=== PATIENT | female | born 1975 | race Caucasian/White ===

== ENCOUNTER 2017-07-24 16:11 | Emergency (ER) | payer MEDICARE, MEDICAID ==
[2017-07-24 16:21] VITALS: BP 127/77
--- NOTE | 2017-07-24 16:34 | ED Physician Documentation ---
History of Present Illness - Stated complaint Stated Complaint: ANXIETY/CANT SLEEP - Chief complaint Chief Complaint: MHE - History obtained from History obtained from: Patient - History of Present Illness Timing: Other (She needs a refill of her Zyprexa, has not been able to see a psychiatrist yet. Has an appointment, although it may be with a psychologist so that he may not be helpful. Either way she feels like she is at her baseline but is worried because she is about to run out of her medication. There is no suicidal or homicidal ideation. 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 : None HEENT: None Psych: Depression, Anxiety, Other Musculoskeletal: None Derm: None - Past Surgical History Past Surgical History: No - Present Medications Home Medications: Ambulatory Orders Medication Instructions Recorded Confirmed OLANZapine [Zyprexa] 10 mg PO DAILY #30 tablet 06/28/17 07/24/17 OLANZapine [Zyprexa] 10 mg PO DAILY #30 tablet 07/24/17 - Allergies Allergies/Adverse Reactions: Allergies Allergy/AdvReac Type Severity Reaction Status Date / Time No Known Drug Allergies Allergy Verified 06/28/17 16:54 - Social History Does the pt smoke?: Yes Smoking Status: Current every day smoker Does the pt drink ETOH?: Yes Does the pt have substance abuse?: No - Immunizations Immunizations are current?: Yes - POLST Patient has POLST: No PD ED PE NORMAL - Vitals Vital signs reviewed: Yes - General General: Alert and oriented X 3, No acute distress - Derm Derm: Normal color, Warm and dry - Neuro Neuro: Alert and oriented X 3, Normal speech - Psych Psych: Normal mood, Normal affect Results - Vitals Vitals: Vital Signs - 24 hr 07/24/17 16:17 Temperature 36.2 C L Heart Rate 91 Respiratory 15 Rate Blood Pressure 127/77 O2 Saturation 98 Oxygen O2 Source Room air Departure - Departure Disposition: 01 Home, Self Care Clinical Impression: Schizo-affective psychosis Qualifiers: Schizoaffective disorder type: unspecified Qualified Code(s): F25.9 - Schizoaffective disorder, unspecified Condition: Good Record reviewed to determine appropriate education?: Yes Follow-Up: [facility] [Provider Group] Prescriptions: OLANZapine [Zyprexa] 10 mg PO DAILY #30 tablet Comments: Call your foster care social worker on Wednesday to see if they have a prescriber at [place] where he will be going for further psychiatric care. Try to find a physician to follow-up with. Return if worse.
== END 2017-07-24 16:34 | disposition home or self-care (01) ==
LOC: ED 16:11
DX: Z76.0 Encounter for issue of repeat prescription (principal); F20.9 Schizophrenia, unspecified; F17.200 Nicotine dependence, unspecified, uncomplicated
CPT/HCPCS: 99281; 99283

== ENCOUNTER 2018-04-21 08:00 | Outpatient (CLI) | payer MEDICARE, MEDICAID ==
[2018-04-21 18:50] LABS: BASOPHILS # (AUTO) 0.1 10^3/uL (0.0-0.1); BASOPHILS % (AUTO) 0.9 %; EOSINOPHILS # (AUTO) 0.3 10^3/uL (0.0-0.7); EOSINOPHILS % (AUTO) 3.2 %; HGB - HEMOGLOBIN 13.2 g/dL (12.0-16.0); LYMPHOCYTES # (AUTO) 3.7 10^3/uL (1.5-3.5); LYMPHOCYTES % (AUTO) 35.9 %; MEAN CORPUSCULAR HEMOGLOBIN 29.1 pg (27.0-31.0); MEAN CORPUSCULAR HGB CONC 33.4 g/dL (32.0-36.0); MEAN CORPUSCULAR VOLUME 87.2 fL (81.0-99.0); MEAN PLATELET VOLUME 8.4 fL (7.9-10.8); MONOCYTES # (AUTO) 0.6 10^3/uL (0.0-1.0); MONOCYTES % (AUTO) 5.4 %; NEUTROPHILS # (AUTO) 5.7 10^3/uL (1.5-6.6); NEUTROPHILS % (AUTO) 54.6 %; PLT - PLATELET COUNT 313 10^3/uL (130-450); RED BLOOD COUNT 4.52 10^6/uL (4.20-5.40); RED CELL DISTRIBUTION WIDTH 12.7 % (12.0-15.0); WHITE BLOOD COUNT 10.4 x10^3/uL (4.8-10.8)
[2018-04-21 19:13] LABS: ALBUMIN 3.3 g/dL (3.2-5.5); ALBUMIN/GLOBULIN RATIO 0.9 (1.0-2.2); ALKALINE PHOSPHATASE 79 IU/L (42-121); ALT ALANINE AMINOTRANSFERASE 49 IU/L (10-60); AST ASPARTATE AMINOTRANSFERASE 45 IU/L (10-42); BILIRUBIN,TOTAL 0.7 mg/dL (0.2-1.0); BUN - BLOOD UREA NITROGEN 9 mg/dL (6-20); CALCIUM 8.7 mg/dL (8.5-10.3); CARBON DIOXIDE - CO2 26 mmol/L (21-32); CHLORIDE 101 mmol/L (101-111); CHOL/HDL RATIO 6.2 (<4.4); CHOLESTEROL 237 mg/dL; CREATININE 0.3 mg/dL (0.4-1.0); GFR - MDRD 243 (>89); GLUCOSE 272 mg/dL (70-100); HDL CHOLESTEROL 38 mg/dL; SODIUM 133 mmol/L (135-145); TOTAL PROTEIN 6.9 g/dL (6.7-8.2)
[2018-04-21 19:41] LABS: HB2 TOTAL 13.9 g/dL; HEMOGLOBIN A1C 1.52 g/dL; HEMOGLOBIN A1C % 12.2 % (4.6-6.2)
[2018-04-21 19:42] LABS: LDL CHOLESTEROL,DIRECT 118 mg/dL; LDLD/HDL RATIO 3.1 (<4.4)
== END 2018-04-21 08:01 | disposition home or self-care (01) ==
LOC: LAB.N 08:00
PROVIDERS: ATTEND Nurse Practitioner Gerontology
DX: Z79.899 Other long term (current) drug therapy (principal); E78.1 Pure hyperglyceridemia; E11.9 Type 2 diabetes mellitus without complications
CPT/HCPCS: 80053; 80061; 83036; 83721; 84443; 85025

== ENCOUNTER 2019-07-24 14:15 | Outpatient (CLI) | payer MEDICARE, MEDICAID ==
[2019-07-24 19:13] LABS: BASOPHILS # (AUTO) 0.1 10^3/uL (0.0-0.1); BASOPHILS % (AUTO) 1.1 %; EOSINOPHILS # (AUTO) 0.4 10^3/uL (0.0-0.7); EOSINOPHILS % (AUTO) 3.7 %; HGB - HEMOGLOBIN 13.4 g/dL (12.0-16.0); LYMPHOCYTES # (AUTO) 3.4 10^3/uL (1.5-3.5); LYMPHOCYTES % (AUTO) 28.6 %; MEAN CORPUSCULAR HEMOGLOBIN 28.8 pg (27.0-31.0); MEAN CORPUSCULAR HGB CONC 32.6 g/dL (32.0-36.0); MEAN CORPUSCULAR VOLUME 88.4 fL (81.0-99.0); MEAN PLATELET VOLUME 10.1 fL (7.9-10.8); MONOCYTES # (AUTO) 0.7 10^3/uL (0.0-1.0); MONOCYTES % (AUTO) 5.8 %; NEUTROPHILS # (AUTO) 7.1 10^3/uL (1.5-6.6); NEUTROPHILS % (AUTO) 60.3 %; PLT - PLATELET COUNT 372 10^3/uL (130-450); RED BLOOD COUNT 4.65 10^6/uL (4.20-5.40); RED CELL DISTRIBUTION WIDTH 12.4 % (12.0-15.0); WHITE BLOOD COUNT 11.8 x10^3/uL (4.8-10.8)
[2019-07-24 19:35] LABS: ALBUMIN 3.6 g/dL (3.2-5.5); ALBUMIN/GLOBULIN RATIO 0.9 (1.0-2.2); BILIRUBIN,TOTAL 0.4 mg/dL (0.2-1.0); CALCIUM 9.8 mg/dL (8.5-10.3); CREATININE 0.3 mg/dL (0.4-1.0); TOTAL PROTEIN 7.7 g/dL (6.7-8.2)
[2019-07-24 20:41] LABS: HB2 TOTAL 13.5 g/dL; HEMOGLOBIN A1C 1.37 g/dL; HEMOGLOBIN A1C % 11.4 % (4.6-6.2)
== END 2019-07-24 23:59 | disposition home or self-care (01) ==
LOC: LAB.N 14:15
PROVIDERS: ATTEND Nurse Practitioner Psychiatric/Mental Health
DX: F31.2 Bipolar disorder, current episode manic severe with psychotic features (principal); E11.9 Type 2 diabetes mellitus without complications
CPT/HCPCS: 36415; 80053; 82306; 82607; 83036; 84443; 85025

== ENCOUNTER 2019-10-20 14:19 | Emergency (ER) | payer MEDICARE, MEDICAID ==
[2019-10-20 14:26] VITALS: BP 115/66
--- NOTE | 2019-10-20 15:58 | ED Physician Documentation ---
PD HPI MHE - Stated complaint Stated Complaint: MED REFILL - Chief complaint Chief Complaint: General - History obtained from History obtained from: Patient - History of Present Illness Primary symptom: Depression (mild). No: Suicidal ideation Timing - onset: How many days ago (she says she does well with current Zyprexa Rx, but is out of meds this the third day, and appt until not ded) Contributing factors: Out of meds Recently seen: Not recently seen (has appt next week) Review of Systems Constitutional: denies: Fever, Chills Nose: denies: Rhinorrhea / runny nose, Congestion Throat: denies: Sore throat Cardiac: denies: Chest pain / pressure Respiratory: denies: Cough GI: denies: Abdominal Pain Neurologic: denies: Confused, Altered mental status, Headache, Head injury PD PAST MEDICAL HISTORY - Past Medical History Cardiovascular: None Respiratory: None Endocrine/Autoimmune: None GI: None 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 : None HEENT: None Psych: Depression, Anxiety, Other Musculoskeletal: None Derm: None - Past Surgical History Past Surgical History: No - Present Medications Home Medications: Ambulatory Orders Medication Instructions Recorded Confirmed OLANZapine [Zyprexa] 10 mg PO DAILY #30 tablet 06/28/17 07/24/17 Glipizide 5 mg PO 10/20/19 OLANZapine [Olanzapine] 20 mg PO DAILY #15 tablet 10/20/19 - Allergies Allergies/Adverse Reactions: Allergies Allergy/AdvReac Type Severity Reaction Status Date / Time No Known Drug Allergies Allergy Verified 10/20/19 14:25 - Social History Does the pt smoke?: Yes Smoking Status: Current every day smoker Does the pt drink ETOH?: Yes Does the pt have substance abuse?: No - Immunizations Immunizations are current?: Yes - POLST Patient has POLST: No PD ED PE NORMAL - Vitals Vital signs reviewed: Yes - General General: Alert and oriented X 3, No acute distress, Well developed/nourished - HEENT HEENT: Pharynx benign - Neck Neck: Supple, no meningeal sign, No bony TTP, No adenopathy - Cardiac Cardiac: RRR, No murmur - Respiratory Respiratory: Clear bilaterally - Derm Derm: Normal color, Warm and dry - Neuro Neuro: Alert and oriented X 3, No motor deficit, Normal speech Results - Vitals Vitals: Vital Signs - 24 hr 10/20/19 14:21 Temperature 36.7 C Heart Rate 92 Respiratory 18 Rate Blood Pressure 115/66 O2 Saturation 95 Oxygen O2 Source Room air PD MEDICAL DECISION MAKING - ED course Complexity details: considered differential (doing okay and just wanting Rx until she gets in to PCP to get regular Rx) Departure - Departure Disposition: 01 Home, Self Care Clinical Impression: No mechanism for timely refill of medication Condition: Stable Record reviewed to determine appropriate education?: Yes Follow-Up: [facility] [Provider Group] Prescriptions: OLANZapine [Olanzapine] 20 mg PO DAILY #15 tablet Comments: Continue usual medications including the olanzapine 20 mg nightly. Stay well- hydrated. Follow-up with [facility] regarding further refills and ongoing medications. Discharge Date/Time: 10/20/19 16:05
== END 2019-10-20 16:05 | disposition home or self-care (01) ==
LOC: ED 14:19
DX: F32.9 Major depressive disorder, single episode, unspecified (principal); T43.596A Underdosing of other antipsychotics and neuroleptics, initial encounter; Z91.138 Patient's unintentional underdosing of medication regimen for other reason; Z76.0 Encounter for issue of repeat prescription; F17.200 Nicotine dependence, unspecified, uncomplicated
CPT/HCPCS: 99281

== ENCOUNTER 2019-11-03 15:36 | Emergency (ER) | payer MEDICARE, MEDICAID ==
[2019-11-03 15:58] VITALS: BP 118/82
--- NOTE | 2019-11-03 16:16 | ED Physician Documentation ---
PD HPI MHE - Stated complaint Stated Complaint: MED REFILL - Chief complaint Chief Complaint: General - History obtained from History obtained from: Patient - History of Present Illness Primary symptom: Out of meds. No: Suicidal ideation, Suicide attempt Timing - onset: How many days ago (had run out of her Olanzapine and missed appt due to family issues. Has psyc appt later this months, in about 2 weeks.) Contributing factors: Out of meds. No: Substance abuse - ETOH, Substance abuse - drugs Review of Systems Constitutional: denies: Fever, Chills, Myalgias Musculoskeletal: denies: Neck pain, Back pain Neurologic: denies: Generalized weakness, Focal weakness, Numbness Psychiatric: reports: Insomnia. 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 : None HEENT: None Psych: Depression, Anxiety, Other Musculoskeletal: None Derm: None - Past Surgical History Past Surgical History: No - Present Medications Home Medications: Ambulatory Orders Medication Instructions Recorded Confirmed OLANZapine [Zyprexa] 10 mg PO DAILY #30 tablet 06/28/17 07/24/17 Glipizide 5 mg PO 10/20/19 OLANZapine [Olanzapine] 20 mg PO DAILY #15 tablet 10/20/19 OLANZapine [Olanzapine] 20 mg PO DAILY #20 tablet 11/03/19 - Allergies Allergies/Adverse Reactions: Allergies Allergy/AdvReac Type Severity Reaction Status Date / Time No Known Drug Allergies Allergy Verified 11/03/19 15:58 - Social History Does the pt smoke?: Yes Smoking Status: Current every day smoker Does the pt drink ETOH?: Yes Does the pt have substance abuse?: No - Immunizations Immunizations are current?: Yes - POLST Patient has POLST: No PD ED PE NORMAL - Vitals Vital signs reviewed: Yes - General General: Alert and oriented X 3, No acute distress, Well developed/nourished - Cardiac Cardiac: RRR, No murmur - Respiratory Respiratory: Clear bilaterally - Abdomen Abdomen: Normal bowel sounds, Soft - Neuro Neuro: Alert and oriented X 3 Eye Opening: Spontaneous Motor: Obeys Commands Results - Vitals Vitals: Vital Signs - 24 hr 11/03/19 15:54 Temperature 36.8 C Heart Rate 91 Respiratory 17 Rate Blood Pressure 118/82 H O2 Saturation 100 Oxygen O2 Source Room air Departure - Departure Disposition: Home, Self Care Clinical Impression: No mechanism for timely refill of medication Schizoaffective disorder Qualifiers: Schizoaffective disorder type: unspecified Qualified Code(s): F25.9 - Schizoaffective disorder, unspecified Condition: Stable Record reviewed to determine appropriate education?: Yes Prescriptions: OLANZapine [Olanzapine] 20 mg PO DAILY #20 tablet Comments: Continue usual medications. Stay well-hydrated. Follow-up with your provider later this month as planned. Discharge Date/Time: 11/03/19 16:43
== END 2019-11-03 16:43 | disposition home or self-care (01) ==
LOC: ED 15:36
DX: Z76.0 Encounter for issue of repeat prescription (principal); F25.9 Schizoaffective disorder, unspecified; F17.200 Nicotine dependence, unspecified, uncomplicated
CPT/HCPCS: 99282; 99283

== ENCOUNTER 2019-11-17 08:00 | Outpatient (CLI) | payer MEDICARE, MEDICAID ==
[2019-11-17 18:28] LABS: CALCIUM 9.6 mg/dL (8.5-10.3); CREATININE 0.6 mg/dL (0.4-1.0); HB2 TOTAL 14.3 g/dL; HEMOGLOBIN A1C 1.25 g/dL; HEMOGLOBIN A1C % 10.1 % (4.6-6.2)
== END 2019-11-17 23:59 | disposition home or self-care (01) ==
LOC: LAB.N 08:00
PROVIDERS: ATTEND Nurse Practitioner Gerontology
DX: E11.9 Type 2 diabetes mellitus without complications (principal)
CPT/HCPCS: 36415; 80048; 83036

== ENCOUNTER 2020-10-16 08:00 | Outpatient (CLI) | payer MEDICARE, MEDICAID ==
[2020-10-16 18:15] LABS: BASOPHILS # (AUTO) 0.1 10^3/uL (0.0-0.1); EOSINOPHILS # (AUTO) 0.6 10^3/uL (0.0-0.7); EOSINOPHILS % (AUTO) 6.5 %; HGB - HEMOGLOBIN 13.4 g/dL (12.0-16.0); LYMPHOCYTES # (AUTO) 3.1 10^3/uL (1.5-3.5); LYMPHOCYTES % (AUTO) 34.3 %; MEAN CORPUSCULAR HEMOGLOBIN 29.2 pg (27.0-31.0); MEAN CORPUSCULAR HGB CONC 32.4 g/dL (32.0-36.0); MEAN PLATELET VOLUME 10.1 fL (7.9-10.8); MONOCYTES # (AUTO) 0.5 10^3/uL (0.0-1.0); MONOCYTES % (AUTO) 5.3 %; NEUTROPHILS # (AUTO) 4.7 10^3/uL (1.5-6.6); NEUTROPHILS % (AUTO) 52.6 %; PLT - PLATELET COUNT 314 10^3/uL (130-450); RED BLOOD COUNT 4.59 10^6/uL (4.20-5.40); RED CELL DISTRIBUTION WIDTH 12.2 % (12.0-15.0)
[2020-10-16 18:30] LABS: ALBUMIN 3.5 g/dL (3.2-5.5); ALBUMIN/GLOBULIN RATIO 0.9 (1.0-2.2); BILIRUBIN,TOTAL 0.8 mg/dL (0.2-1.0); CALCIUM 8.9 mg/dL (8.5-10.3); CREATININE 0.3 mg/dL (0.4-1.0); TOTAL PROTEIN 7.2 g/dL (6.7-8.2)
[2020-10-16 20:33] LABS: HEMOGLOBIN A1c% 13.5 % (4.27-6.07)
== END 2020-10-16 23:59 | disposition home or self-care (01) ==
LOC: LAB.WCP 08:00
PROVIDERS: ATTEND Physician Assistant
DX: E11.9 Type 2 diabetes mellitus without complications (principal)
CPT/HCPCS: 36415; 80053; 82043; 82570; 83036; 85025

== ENCOUNTER 2020-11-05 08:00 | Outpatient (CLI) | payer MEDICARE, MEDICAID ==
[2020-11-05 19:13] LABS: CREATININE,URINE 26.7 mg/dL; MICROALBUM/CREATININE RATIO,UR 89.9 ug/mg (<30.0); MICROALBUMIN,URINE 2.4 mg/dL (0-300.0)
== END 2020-11-05 23:59 | disposition home or self-care (01) ==
LOC: LAB.WCP 08:00
PROVIDERS: ATTEND Physician Assistant
DX: E11.9 Type 2 diabetes mellitus without complications (principal)
CPT/HCPCS: 82043; 82570

== ENCOUNTER 2021-09-19 08:00 | Outpatient (CLI) | payer MEDICARE, MEDICAID ==
[2021-09-19 18:21] LABS: ALBUMIN 3.7 g/dL (3.2-5.5); ALBUMIN/GLOBULIN RATIO 0.9 (1.0-2.2); ALKALINE PHOSPHATASE 104 IU/L (42-121); ALT ALANINE AMINOTRANSFERASE 43 IU/L (10-60); AST ASPARTATE AMINOTRANSFERASE 31 IU/L (10-42); BILIRUBIN,TOTAL 0.4 mg/dL (0.2-1.0); BUN - BLOOD UREA NITROGEN 9 mg/dL (6-20); CALCIUM 9.3 mg/dL (8.5-10.3); CARBON DIOXIDE - CO2 28 mmol/L (21-32); CHLORIDE 97 mmol/L (101-111); CHOL/HDL RATIO 5.9 (<4.4); CHOLESTEROL 249 mg/dL; CREATININE 0.5 mg/dL (0.4-1.0); GFR - MDRD 132 (>89); GLUCOSE 390 mg/dL (70-100); HDL CHOLESTEROL 42 mg/dL; LDL CHOLESTEROL,CALCULATED 131 mg/dL; LDL/HDL RATIO 3.1 (<4.4); POTASSIUM 4.1 mmol/L (3.5-5.0); SODIUM 135 mmol/L (135-145); TRIGLYCERIDES 382 mg/dL; VLDL CHOLESTEROL 76 mg/dL
[2021-09-19 18:55] LABS: CREATININE,URINE 66.2 mg/dL; MICROALBUM/CREATININE RATIO,UR 175.2 ug/mg (<30.0); MICROALBUMIN,URINE 11.6 mg/dL (0-300.0)
[2021-09-19 21:03] LABS: ESTIMATED AVERAGE GLUCOSE 318 mg/dL (70-100); HEMOGLOBIN A1c% 12.7 % (4.27-6.07)
== END 2021-09-19 23:59 | disposition home or self-care (01) ==
LOC: LAB.WCP 08:00
PROVIDERS: ATTEND Physician Assistant Medical
DX: E11.9 Type 2 diabetes mellitus without complications (principal)
CPT/HCPCS: 36415; 80053; 80061; 82043; 82570; 83036; 83721; 87070; 87077; 87181; 87205

== ENCOUNTER 2022-02-25 15:35 | Inpatient (IN) | payer MEDICARE, MEDICAID ==
--- NOTE | 2022-02-25 16:01 | ED Physician Documentation ---
PD HPI LOWER EXT INJURY - Stated complaint Stated Complaint: FOOT WOUND - Chief complaint Chief Complaint: Wound - History obtained from History obtained from: Patient, Caregiver (ISELA Walls called me prior to arrival) - Additional information Additional information: 46-year-old woman with type 2 diabetes on oral medications only presents at the behest of her primary care PA for the evaluation of a wound on her left foot. She has had this wound for most of the year, has been in wound care. Over the last couple of days the wound is gotten worse and she developed what she thought was the flu with fevers, nausea vomiting, and body aches without respiratory symptoms. 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 : None HEENT: None Psych: Depression, Anxiety, Other (schizoaffective disorder) Musculoskeletal: None Derm: None - Past Surgical History Past Surgical History: No - Present Medications Home Medications: Ambulatory Orders Medication Instructions Recorded Confirmed glipiZIDE [Glipizide] 10 mg PO DAILY 10/20/19 02/25/22 OLANZapine [Olanzapine] 20 mg PO QPM 02/06/20 02/25/22 - Allergies Allergies/Adverse Reactions: Allergies Allergy/AdvReac Type Severity Reaction Status Date / Time No Known Drug Allergies Allergy Verified 02/25/22 15:47 - Social History Does the pt smoke?: Yes Smoking Status: Current every day smoker Does the pt drink ETOH?: Yes Does the pt have substance abuse?: No - Immunizations Immunizations are current?: Yes - POLST Patient has POLST: No PD ED PE NORMAL - Vitals Vital signs reviewed: Yes (Soft blood pressure with tachycardia and a positive shock index and tachypn) - General General: Alert and oriented X 3, No acute distress - HEENT HEENT: PERRL, EOMI - Neck Neck: Supple, no meningeal sign, No bony TTP - Cardiac Cardiac: Other (Mild resting tachycardia without murmur) - Respiratory Respiratory: No respiratory distress, Clear bilaterally - Abdomen Abdomen: Normal bowel sounds, Soft, Non tender - Back Back: No CVA TTP, No spinal TTP - Derm Derm: Normal color, Warm and dry - Extremities Extremities: Other (There is an infected wound under the second metatarsal head and there are some necrotic bullae over the dorsal surface of the left second and third toes. Feet are warm and well-perfused.) - Neuro Neuro: Alert and oriented X 3, Normal speech - Psych Psych: Normal mood, Normal affect Results - Vitals Vitals: Vital Signs - 24 hr 02/25/22 02/25/22 02/25/22 15:39 16:04 16:34 Temperature 36.4 C L Heart Rate 106 H 101 H 98 Respiratory 28 H 30 H 30 H Rate Blood Pressure 95/59 L 113/72 102/65 O2 Saturation 97 96 94 02/25/22 16:36 Temperature Heart Rate 96 Respiratory 18 Rate Blood Pressure 102/65 O2 Saturation 96 Oxygen O2 Source Room air - Labs Labs: Laboratory Tests 02/25/22 02/25/22 02/25/22 15:56 15:56 15:56 WBC 28.2 H RBC 4.59 Hgb 13.1 Hct 39.0 MCV 85.0 MCH 28.5 MCHC 33.6 RDW 12.1 Plt Count 308 MPV 9.9 Neut # (Auto) Not Reportable Lymph # (Auto) Not Reportable [place] # (Auto) Not Reportable Eos # (Auto) Not Reportable Baso # (Auto) Not Reportable Absolute Nucleated RBC Not Reportable Total Counted 100 Band Neuts % (Manual) 1 Abnorm Lymph % (Manual) 0 Nucleated RBC % Not Reportable Neutrophils # (Manual) 23.7 H Lymphocytes # (Manual) 3.1 Monocytes # (Manual) 1.4 H Eosinophils # (Manual) 0.0 Basophils # (Manual) 0.0 Differential Comment MANUAL DIFFERENTIAL WBC Morphology NORMAL APPEARANCE Platelet Estimate NORMAL (130-450,000) Platelet Morphology NORMAL APPEARANCE RBC Morph Micro Appear NORMAL APPEARANCE Sodium 128 L Potassium 3.7 Chloride 92 L Carbon Dioxide 25 Anion Gap 11.0 BUN 11 Creatinine 0.6 Estimated GFR (MDRD) 107 Glucose 374 H Lactic Acid 1.3 Calcium 8.6 Total Bilirubin 1.0 AST 13 ALT 19 Alkaline Phosphatase 95 C-Reactive Protein Total Protein 7.7 Albumin 3.1 L Globulin 4.6 H Albumin/Globulin Ratio 0.7 L Procalcitonin 02/25/22 02/25/22 15:56 15:56 WBC RBC Hgb Hct MCV MCH MCHC RDW Plt Count MPV Neut # (Auto) Lymph # (Auto) [place] # (Auto) Eos # (Auto) Baso # (Auto) Absolute Nucleated RBC Total Counted Band Neuts % (Manual) Abnorm Lymph % (Manual) Nucleated RBC % Neutrophils # (Manual) Lymphocytes # (Manual) Monocytes # (Manual) Eosinophils # (Manual) Basophils # (Manual) Differential Comment WBC Morphology Platelet Estimate Platelet Morphology RBC Morph Micro Appear Sodium Potassium Chloride Carbon Dioxide Anion Gap BUN Creatinine Estimated GFR (MDRD) Glucose Lactic Acid Calcium Total Bilirubin AST ALT Alkaline Phosphatase C-Reactive Protein 37.0 H Total Protein Albumin Globulin Albumin/Globulin Ratio Procalcitonin 1.67 H PD MEDICAL DECISION MAKING - ED course ED course: 46-year-old woman with poorly controlled diabetes presents with worsening of a foot wound and systemic symptoms. On arrival she has vital signs including tachypnea, tachycardia and soft blood pressure worrisome for sepsis. White count is 20,000, blood sugar 380. Lactate normal. Case discussed by phone with Dr. Lott who will consult, and Dr. Angel for admission at 4:50 PM. In the department she received received Zosyn and vancomycin after blood cultures. The orthopedic human performance consultant specifically did not think a tissue culture nor an MRI would be useful. - Sepsis Event Sepsis Onset Date: 02/25/22 Sepsis Onset Time: 16:00 Current Stage of Sepsis: Sepsis Possible source of Sepsis: Skin/soft tissue Mental/Cognitive Status: Alert/Oriented X3, Normal for patient Reason for not giving 30ml/kg crystalloid fluids: Not in septic shock Capillary refill: Less than 2 seconds Peripheral Pulse Strength: 3+ Normal Peripheral Pulse Location: Radial Departure - Departure Disposition: 66 [facility] DC/Xfer Clinical Impression: Continuous dependence on cigarette smoking Hyperglycemia due to type 2 diabetes mellitus Qualifiers: Diabetes mellitus exterminator helper insulin use: without nursing home use Qualified Code(s): E11.65 - Type 2 diabetes mellitus with hyperglycemia Diabetic foot ulcer Qualifiers: Diabetic foot ulcer location: midfoot Diabetes mellitus type: type 2 Lateralit y: left Non-pressure ulcer stage: unspecified non-pressure ulcer stage Qualified Code(s): E11.621 - Type 2 diabetes mellitus with foot ulcer Sepsis Qualifiers: Sepsis type: sepsis due to unspecified organism Sepsis acute organ dysfunction status: without acute organ dysfunction Qualified Code(s): A41.9 - Sepsis, unspecified organism Condition: Serious
[2022-02-25] MEDS ORDERED: VANCOMYCIN INJ 1.5 GM in SODIUM CHLORIDE 0.9% 500 ML IV STA (16:03)
[2022-02-25] MEDS ORDERED: PIPERACILLIN/TAZOBACTAM 3.375 GM in SODIUM CHLORIDE 0.9% MINIBAG 100 ML IV STA (16:03)
[2022-02-25 16:06] LABS: BASOPHILS % (AUTO) 0.4 %; EOSINOPHILS % (AUTO) 0.2 %; HGB - HEMOGLOBIN 13.1 g/dL (12.0-16.0); LYMPHOCYTES % (AUTO) 8.1 %; MEAN CORPUSCULAR HEMOGLOBIN 28.5 pg (27.0-31.0); MEAN CORPUSCULAR HGB CONC 33.6 g/dL (32.0-36.0); MEAN PLATELET VOLUME 9.9 fL (7.9-10.8); MONOCYTES % (AUTO) 7.1 %; NEUTROPHILS % (AUTO) 83.5 %; PLT - PLATELET COUNT 308 10^3/uL (130-450); RED BLOOD COUNT 4.59 10^6/uL (4.20-5.40); RED CELL DISTRIBUTION WIDTH 12.1 % (12.0-15.0); WHITE BLOOD COUNT 28.2 x10^3/uL (4.8-10.8)
[2022-02-25 16:07] LABS: ABNORMAL LYMPHS % (MANUAL) 0 %
[2022-02-25 16:20] LABS: ALBUMIN 3.1 g/dL (3.2-5.5); ALBUMIN/GLOBULIN RATIO 0.7 (1.0-2.2); CALCIUM 8.6 mg/dL (8.5-10.3); CREATININE 0.6 mg/dL (0.4-1.0); POTASSIUM 3.7 mmol/L (3.5-5.0); TOTAL PROTEIN 7.7 g/dL (6.7-8.2)
[2022-02-25 16:34] LABS: BAND NEUTROPHILS % (MANUAL) 1 %; LYMPHOCYTES # (MANUAL) 3.1 10^3/uL (1.5-3.5); LYMPHOCYTES % (MANUAL) 11 %; MONOCYTES # (MANUAL) 1.4 10^3/uL (0.0-1.0); NEUTROPHILS # (MANUAL) 23.7 10^3/uL (1.5-6.6); PLATELET ESTIMATE, MANUAL NORMAL (130-450,000) (NORMAL); PLATELET MORPHOLOGY NORMAL APPEARANCE (NORMAL); RBC MORPHOLOGY (MULTIPLE) NORMAL APPEARANCE (NORMAL); WBC MORPHOLOGY (MULTIPLE) NORMAL APPEARANCE (NORMAL)
[2022-02-25 16:35] LABS: DIFFERENTIAL COMMENT MANUAL DIFFERENTIAL
--- NOTE | 2022-02-25 16:39 | XRAY Report ---
PROCEDURE: Foot 3 View LT INDICATIONS: foot infection TECHNIQUE: 3 views of the foot were acquired. COMPARISON: FINDINGS: Bones: No fractures or dislocations. Small areas of lucency are noted at the base of the first proxi mal phalanx. Soft tissues: No tibiotalar joint effusion. Achilles tendon appears normal. Areas of decreased den sity appear most prominent overlying the third through fifth metatarsal heads. There are areas of dec reased density overlying the third fourth and fifth metatarsal heads. IMPRESSION: Soft tissue edema particularly notable over the third through fifth digits. While some areas of decre ased density appear to be within the soft tissues, small areas of low-attenuation do appear present w ithin the third through fifth metatarsal heads. Early changes of osteomyelitis cannot be definitively excluded and if concern persists, MRI is recommended. Decreased density noted at the base of the first metatarsal possibly degenerative. However, infection cannot be excluded. Reviewed by: Jeny James MD on 02/25/2022 4:38 PM PDT Approved by: Jeny James MD on 02/25/2022 4:38 PM PDT Station ID: [id number]
[2022-02-25] MEDS ORDERED: SODIUM CHLORIDE 0.9% 1,000 ML IV STA (16:48)
[2022-02-25] MEDS ORDERED: ONDANSETRON ODT 4 MG TABLET TL PRN (16:52)
[2022-02-25] MEDS ORDERED: ONDANSETRON 4 MG/2 ML VIAL IVP PRN (16:52)
[2022-02-25] MEDS ORDERED: MORPHINE 2 MG/ML CARPUJECT IVP PRN (16:52)
--- NOTE | 2022-02-25 17:33 | PHARMACY PROGRESS NOTE ---
- Therapy Status Therapy status: Awaiting steady state Basis for treatment: Empirical Treatment indication: SEPSIS, SSTI Trough goal: 15-20 Concurrent antibiotics: CEFEPIME - FABY Risk Risk level for Acute Kidney Injury: High Acute Kidney Injury risk factors: Goal trough >15, Diabetes, Sepsis - Monitoring and Recommendation Clinical response to treatment: I&O Previous 24 hours 02/23/22 02/24/22 02/25/22 23:59 23:59 23:59 Intake Total 100 Balance 100 Lab Results 02/25/22 15:56 BUN 11 Creatinine 0.6 Estimated GFR (MDRD) 107 Monitoring plan: Daily serum creatinine, Suggest ongoing fluid replacement Next trough due (date/time): 02/26 AT 1600 Areas for additional monitoring: IV to PO when appropriate, Therapy de- escalation based on culture results, Acute Kidney Injury Pharmacy recommendation: Continue current regime (Loading dose of 1.5 gm given in ED. Initiate maintenance dose of 1 gm IV q8h for estimated trough of 15.6 mcg/mL and estimated AUC/JASBIR of 515 mcg*hr/mL)
[2022-02-25 17:45] LABS: B. PARAPERTUSSIS- RESP PCR PAN NOT DETECTED; B. PERTUSSIS- RESP PCR PANEL NOT DETECTED; C. PNEUMONIAE- RESP PCR PANEL NOT DETECTED; CORONAVIRUS 229E-RESP PCR NOT DETECTED; CORONAVIRUS HKU1-RESP PCR NOT DETECTED; CORONAVIRUS NL63-RESP PCR NOT DETECTED; CORONAVIRUS OC43-RESP PCR NOT DETECTED; HUMAN METAPNEUMOVIRUS NOT DETECTED; INFLUENZA A- RESP PCR PANEL NOT DETECTED; INFLUENZA B - RESP PCR PANEL NOT DETECTED; M. PNEUMONIAE- RESP PCR PANEL NOT DETECTED; PARAINFLUENZA VIRUS 1 NOT DETECTED; PARAINFLUENZA VIRUS 2 NOT DETECTED; PARAINFLUENZA VIRUS 3 NOT DETECTED; PARAINFLUENZA VIRUS 4 NOT DETECTED; RHINOVIRUS/ENTEROVIRUS NOT DETECTED; RSV- RESP PCR PANEL NOT DETECTED; SARS-CoV-2 -RESP PCR PANEL NOT DETECTED
[2022-02-25] MEDS: INSULIN ASPART 300 UNIT/3 ML PEN SUBQ SCH ×3 (17:46→20:48)
[2022-02-25] MEDS: LACTATED RINGERS 1,000 ML IV SCH (17:48)
[2022-02-25] MEDS: SODIUM CHLORIDE FLUSH 0.9% 10 ML SYRINGE IVP SCH (17:48)
--- NOTE | 2022-02-25 18:36 | PHARMACY PROGRESS NOTE ---
- Best Possible Medication History Admit Date and Time: 02/25/22 6420 Processed by: Nursing Medication History completed: Yes Secondary Source(s): Insurance records As the person ultimately responsible for medication therapy, providers are able to order a medication from an existing home medication list in [facility] via the "Reconcile Routine" prior to Confirmation of that medication by end user support specialist. Such practice is discouraged except when the physician, in their clinical judgment, deems that a medical need exists for a medication without regard to previous use.
--- NOTE | 2022-02-25 19:59 | HISTORY & PHYSICAL EXAMINATION ---
Chief Complaint - Chief Complaint Chief Complaint: Fever, N/V, body aches and chronic L foot wound looks worse per pt's PCP History of Present Illness - Admitted From Admitted From:: ED - History Obtained From History obtained from: ED provider and the patient - History of Present Illness HPI Comment/Other: This is a 46-year-old female of [place] origin with a history of diabetes type 2 on oral agent Glipizide only, has schizoaffective disorder with anxiety attacks and is on Zyprexa, has diabetic peripheral neuropathy, and diabetic foot ulcers on dorsum of both feet at metatarsals. The R ulcer has healed but the L foot ulcer has now lasted about 1 year and she has been to Wound clinic at [facility] since Sep of this year. She manages the left foot ulcer by just putting a dry bandage on it. She has noticed that it has been malodorous in the last several days. Also in the last few days she developed nausea, vomiting, fever and body aches and thought she had the flu. She was seen by her PCP today who evaluated the L foot wound and felt the wound was worse and that the pt needed to be seen in the ED. Work-up in the ED shows she has a very elevated white blood count of 28.2, CRP of 37 and procalcitonin level of 1.67. The Lactic Acid level is 1.3. She is tachycardic at 106, and has a "soft" BP of 95/59. A foot X-ray showed soft tissue edema but was inconclusive for osteomyelitis. Her glu is 330. The ED provider reached out to Orthopedics and also for admission to the Hospitalist team for antibiotics and diabetes manegement. Dr. Lott of Orthopedics will see her tomorrow and advised that she get antibiotics started, no wound culture is needed and no MRI is needed, he said. We discussed her CODE BLUE status and she wants to be a Full Code. History - Past Medical History Cardiovascular: reports: None Respiratory: reports: None Neuro: reports: Peripheral neuropathy (Numbness of dorsum of feet, occasional shooting pain up her leg (pain is rare & she takes Tylenol or Motrin)) Endocrine/Autoimmune: reports: Type 2 diabetes (She does not do fingerstick checks because she "ran out of glucometer strips". She cannot remember what her old glucose levels were when she used to check fingerstick blood glu levels.) GI: reports: None PUBLIC AFFAIRS SPECIALIST: reports: None : reports: None HEENT: reports: None Psych: reports: Depression, Anxiety, Other (schizoaffective disorder) Musculoskeletal: reports: None Derm: reports: None MRSA Hx?: No - Family & Social History Family History: Mother: Alive and Well (2 children, 1 son, 1 daughter are alive and well), Father: Alive and Well, Other family: Alive and Well Family History Comment/Other: Diabetes runs in multiple family members Living arrangement: At home Living Situation: With family Social History Notes: Lives in her parents house. Her adult daughter lives with them. She has an adult son who lives in [place]. She is . She smokes 1 pack/day. She drinks rare alcohol. No illicit drug use history. Disability for her diabetes and schizoaffective disorder. 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 - Substance History Use: Uses substance without health or social issues: Tobacco - POLST Patient has POLST: No POLST Status: Full Code Meds/Allgy - Home Medications Home Medications: Ambulatory Orders Medication Instructions Recorded Confirmed glipiZIDE [Glipizide] 10 mg PO DAILY 10/20/19 02/25/22 OLANZapine [Olanzapine] 20 mg PO QPM 02/06/20 02/25/22 - Allergies Allergies/Adverse Reactions: Allergies Allergy/AdvReac Type Severity Reaction Status Date / Time No Known Drug Allergies Allergy Verified 02/25/22 15:47 Review of Systems - Constitutional Constitutional: reports: Fatigue, Fever, Chills - Integumentary Integumentary: reports: Lesions (of L foot and 3rd toe) - Neurological Neurological: reports: Numbness (of dorsum of both feet) - Psychiatric Psychiatric: reports: Anxiety - All Other Systems All Other Systems: reports: Reviewed and negative Exam - Vital Signs Reviewed Vital Signs: Yes Vital Signs: Vital Signs x48h Temp Pulse Pulse Resp BP BP BP 02/25/22 18:55 37.7 C 107 H 20 114/68 02/25/22 17:41 37.7 C 97 24 96/55 L 02/25/22 17:04 97/62 02/25/22 17:00 103 H 34 H 97/62 02/25/22 16:36 96 18 102/65 02/25/22 16:34 98 30 H 102/65 02/25/22 16:04 101 H 30 H 113/72 02/25/22 15:39 36.4 C L 106 H 28 H 95/59 L Pulse Ox 02/25/22 18:55 96 02/25/22 17:41 97 02/25/22 17:04 02/25/22 17:00 94 02/25/22 16:36 96 02/25/22 16:34 94 02/25/22 16:04 96 02/25/22 15:39 97 - Physical Exam General Appearance: positive: No acute distress, Alert Eyes Bilateral: positive: EOMI, Other (L eyelid has ptosis) ENT: positive: ENT inspection nml, No signs of dehydration Neck: positive: Nml inspection, No JVD Respiratory: positive: No respiratory distress, Breath sounds nml Cardiovascular: positive: Regular rate & rhythm, No murmur Abdomen: positive: Non-tender, Nml bowel sounds, No distention Skin: positive: No rash, Warm, Dry Extremities: positive: No pedal edema, Other (R foot has a callous at site of old ulcer on dorsum at 3rd metatarsal. L foot, has swelling of 2nd, 3rd and 4th toes. The 3rd toe is partially black and has 2 oozing blisters on cephalad erazo rface. Dorsum of L foot has open wound at 3rd metatarsal, black base and is malodorous.) Neurologic/Psychiatric: positive: Oriented x3 (Dorsum of feet are numb, non- focal motor exam grossly.) Sepsis Event Note (H) - Evaluation Current Stage of Sepsis: Sepsis Possible source of Sepsis: positive: Skin/soft tissue - Sepsis Criteria Sepsis Criteria: Recorded Heart Rate greater than 90 bpm, Recorded Respiratory Rate greater than 20, WBC count greater than 12,000 or less than 4000 Conclusion/Plan - Problem List (1) Sepsis Conclusion/Plan: She is tachycardic, has a "soft" blood pressure, elevated white count, elevated CRP and elevated respiratory rate, consistent with sepsis. The source is the the chronic left-sided diabetic foot ulcer. Blood cultures were drawn in the ED and she was given vancomycin and Zosyn. Will treat sepsis with aggressive IV crystalloid infusion Await blood culture results We will use vancomycin and cefepime empirically and tailor antibiotics based on cultures. Await Orthopedic consultation for recommendations of management of this ulcer and the infection. She may need a PICC line if she needs a long course of IV antibiotics. Follow daily her white blood count and CRP. Qualifiers: Sepsis type: sepsis due to unspecified organism Sepsis acute organ dysfunction status: without acute organ dysfunction Qualified Code(s): A41.9 - Sepsis, unspecified organism (2) Diabetic foot ulcer Conclusion/Plan: As above in #1. Given that the foot x-ray shows possible osteomyelitis, she will likely need several weeks of iv antibiotics, unless the wound is debrided extensively or toe(s) or foot is amputated. Await recommendations from Orthopedics. Qualifiers: Diabetic foot ulcer location: midfoot Diabetes mellitus type: type 2 Laterality: left Non-pressure ulcer stage: unspecified non-pressure ulcer s tage Qualified Code(s): E11.621 - Type 2 diabetes mellitus with foot ulcer; L97.429 - Non-pressure chronic ulcer of left heel and midfoot with unspecified severity (3) Chronic ulcer of left midfoot Conclusion/Plan: As above in #1 and #2. She has only minimal pain. Will order Tylenol as needed and Motrin. (4) Hyperglycemia due to type 2 diabetes mellitus Conclusion/Plan: We will use sliding scale insulin to manage her very got high glucoses, will also add Lantus at night and a small dose with each meal. Diabetic diet ordered. Start hypoglycemia protocol, fingerstick checks and obtain her A1c with morning labs. Qualifiers: Diabetes mellitus [facility] insulin use: without rn long term care use Qualified Code(s): E11.65 - Type 2 diabetes mellitus with hyperglycemia (5) Hyponatremia Conclusion/Plan: This is likely pseudohyponatremia given the hyperglycemia with glucose of 330. We will continue with IV fluids given her "soft" BP. Follow BMP daily (6) Peripheral neuropathy Conclusion/Plan: Patient prefers not to wear diabetic shoes and uses flip-flops or slippers. She has been recommended to use diabetic shoes multiple times by [facility] and wound clinic. STEPHANIE's done on 04/08/21: Left: 1.0, Right: 1.18, and she had Triphasic flow bilateral via doppler. Qualifiers: Peripheral neuropathy type: polyneuropathy, unspecified Qualified Code(s): G62.9 - Polyneuropathy, unspecified (7) Schizoaffective disorder Conclusion/Plan: Will order her home Zyprexa dose to use here. (8) Tobacco use Conclusion/Plan: Nicotine patch will be offered - Lab Results Fish Bones: 02/25/22 15:56 02/25/22 15:56 - Diagnostic Imaging Results Diagnostic Imaging Results: positive: Final report reviewed - Other Other Results/Comments: Attestation: The patient is expected to be discharged or transferred to another facility within 96 hours: Yes.
[2022-02-25 20:07] LABS: BILIRUBIN,URINE NEGATIVE (NEGATIVE); CLARITY,URINE CLOUDY (CLEAR); GLUCOSE, URINE (UA) >=1000 mg/dL (NEGATIVE); KETONES,URINE (UA) NEGATIVE (NEGATIVE); LEUKOCYTE ESTERASE, URINE SMALL (NEGATIVE); NITRITE,URINE NEGATIVE (NEGATIVE); OCCULT BLOOD,URINE TRACE-INTA (NEGATIVE); PROTEIN,URINE TRACE mg/dL (NEGATIVE); UROBILINOGEN,URINE 0.2 (NORMAL) E.U./dL (NORMAL)
[2022-02-25 20:16] LABS: BACTERIA,URINE Moderate /HPF (None Seen); RBC,URINE 0-5 /HPF (0-5); SQUAMOUS EPITHELIAL CELL,UR MANY Squamous (<= Few)
[2022-02-25 20:40] LABS: ESTIMATED AVERAGE GLUCOSE 332 mg/dL (70-100); HEMOGLOBIN A1c% 13.2 % (4.27-6.07)
[2022-02-25] MEDS: CEFEPIME 2 GM in SODIUM CHLORIDE 0.9% MINIBAG 100 ML IV SCH (20:48)
[2022-02-25] MEDS ORDERED: NICOTINE 14 MG PATCH TOP PRN (20:57)
[2022-02-25] MEDS ORDERED: INSULIN GLARGINE 300 UNIT/3 ML PEN SUBQ SCH (21:00)
[2022-02-25] MEDS: OLANZapine ODT 5 MG TABLET TL SCH (21:06)
[2022-02-25] MEDS: IBUPROFEN 600 MG TABLET PO PRN (21:06)
[2022-02-26] MEDS: VANCOMYCIN INJ 1 GM in SODIUM CHLORIDE 0.9% 250 ML IV SCH ×2 (00:42→08:11)
[2022-02-26] MEDS: ACETAMINOPHEN 325 MG TABLET PO PRN (00:42)
[2022-02-26] MEDS: SODIUM CHLORIDE FLUSH 0.9% 10 ML SYRINGE IVP SCH ×4 (00:46→23:46)
[2022-02-26] MEDS: LACTATED RINGERS 1,000 ML IV SCH (05:04)
[2022-02-26 05:56] LABS: BASOPHILS % (AUTO) 0.4 %; EOSINOPHILS % (AUTO) 1.7 %; HCT - HEMATOCRIT 32.4 % (37.0-47.0); HGB - HEMOGLOBIN 10.7 g/dL (12.0-16.0); LYMPHOCYTES % (AUTO) 13.2 %; MEAN CORPUSCULAR HEMOGLOBIN 28.4 pg (27.0-31.0); MEAN CORPUSCULAR VOLUME 85.9 fL (81.0-99.0); MONOCYTES % (AUTO) 7.3 %; NEUTROPHILS % (AUTO) 76.5 %; PLT - PLATELET COUNT 248 10^3/uL (130-450); RED BLOOD COUNT 3.77 10^6/uL (4.20-5.40); RED CELL DISTRIBUTION WIDTH 12.2 % (12.0-15.0); WHITE BLOOD COUNT 20.2 x10^3/uL (4.8-10.8)
[2022-02-26 06:17] LABS: ABNORMAL LYMPHS % (MANUAL) 0 %
[2022-02-26 06:26] LABS: CREATININE 0.6 mg/dL (0.4-1.0); CRP - C-REACTIVE PROTEIN 31.7 mg/dL (0-1.0); POTASSIUM 3.1 mmol/L (3.5-5.0)
[2022-02-26 06:39] LABS: BAND NEUTROPHILS % (MANUAL) 1 %; DIFFERENTIAL COMMENT MANUAL DIFFERENTIAL; LYMPHOCYTES # (MANUAL) 2.4 10^3/uL (1.5-3.5); LYMPHOCYTES % (MANUAL) 12 %; MONOCYTES # (MANUAL) 1.2 10^3/uL (0.0-1.0); NEUTROPHILS # (MANUAL) 16.6 10^3/uL (1.5-6.6); PLATELET ESTIMATE, MANUAL NORMAL (130-450,000) (NORMAL); PLATELET MORPHOLOGY NORMAL APPEARANCE (NORMAL); RBC MORPHOLOGY (MULTIPLE) NORMAL APPEARANCE (NORMAL); WBC MORPHOLOGY (MULTIPLE) NORMAL APPEARANCE (NORMAL)
[2022-02-26] MEDS: IBUPROFEN 600 MG TABLET PO PRN ×2 (07:05→11:54)
--- NOTE | 2022-02-26 07:18 | PROVIDER PROGRESS NOTE ---
Subjective - Prog Note Date Prog Note Date: 02/26/22 - Subjective Subjective: She feels improved compared to yesterday. Has not had any more fevers or chills. She understands she must get her blood glucose better controlled and understands the severity of her infection. No nausea or vomiting. She is also willing to quit smoking. Current Medications - Current Medications Current Medications: Active Medications Acetaminophen (Acetaminophen 325 Mg Tablet) 650 mg PO Q4HR PRN PRN Reason: Pain 1 to 4, or Fever Last Admin: 02/26/22 00:42 Dose: 650 mg Enoxaparin Sodium (Enoxaparin 40 Mg/0.4 Ml Syringe) 40 mg SUBQ DAILY [facility] Lactated Ringer's (Lr) 1,000 mls @ 100 mls/hr IV .Q10H [facility] Stop: 02/26/22 12:59 Last Admin: 02/26/22 05:04 Dose: 100 mls/hr Cefepime HCl 2 gm/ Sodium (Chloride) 100 mls @ 200 mls/hr IV BID [facility] Last Infusion: 02/25/22 21:20 Dose: Infused Vancomycin HCl 1 gm/ Sodium (Chloride) 250 mls @ 167 mls/hr IV Q8H [facility] Last Infusion: 02/26/22 02:14 Dose: Infused Ibuprofen (Ibuprofen 600 Mg Tablet) 600 mg PO Q6HR PRN PRN Reason: PAIN 1-4 Last Admin: 02/26/22 07:05 Dose: 600 mg Insulin Aspart (Insulin Aspart 300 Unit/3 Ml Pen) 3 unit SUBQ TIDWM [facility]; Protocol Last Admin: 02/25/22 17:46 Dose: 3 unit Insulin Aspart (Insulin Aspart 300 Unit/3 Ml Pen) 2 - 10 unit SUBQ 0800,1200,1700,2100 [facility]; Protocol Insulin Glargine (Insulin Glargine 300 Unit/3 Ml Pen) 10 unit SUBQ QPM [facility] Last Admin: 02/25/22 20:47 Dose: 10 unit Morphine Sulfate (Morphine 2 Mg/Ml Carpuject) 2 mg IVP Q2HR PRN PRN Reason: Pain 8 to 10 Nicotine (Nicotine 14 Mg Patch) 1 patch TOP DAILY PRN PRN Reason: Nicotine Craving Olanzapine (Olanzapine Odt 5 Mg Tablet) 20 mg TL QPM [facility] Last Admin: 02/25/22 21:06 Dose: 20 mg Ondansetron HCl (Ondansetron Odt 4 Mg Tablet) 4 mg TL Q6HR PRN PRN Reason: Nausea / Vomiting Ondansetron HCl (Ondansetron 4 Mg/2 Ml Vial) 4 mg IVP Q6HR PRN PRN Reason: Nausea / Vomiting Sodium Chloride (Sodium Chloride Flush 0.9% 10 Ml Syringe) 10 ml IVP PRN PRN PRN Reason: NEEDED PER PROVIDER ORDERS Sodium Chloride (Sodium Chloride Flush 0.9% 10 Ml Syringe) 10 ml IVP 0100,0900,1700 [facility] Last Admin: 02/26/22 00:46 Dose: 10 ml glipiZIDE [Glipizide] 10 mg PO DAILY 10/20/19 OLANZapine [Olanzapine] 20 mg PO QPM 02/06/20 Objective - Vital Signs/Intake & Output Reviewed Vital Signs: Yes Vital Signs: Vital Signs x48h Temp Pulse Resp BP BP Pulse Ox 02/26/22 05:08 36.6 C 78 18 93/53 L 93 02/26/22 00:49 37.2 C 92 24 97/56 L 92 Intake & Output: Intake & Output 02/23/22 02/24/22 02/25/22 02/26/22 23:59 23:59 23:59 23:59 Intake Total 2162 1250.000 Output Total 1050 400 Balance 1112 850.000 - Objective General Appearance: positive: No acute distress, Alert Eyes Bilateral: positive: Normal inspection, Conjunctivae nml ENT: positive: ENT inspection nml Neck: positive: Nml inspection Respiratory: positive: No respiratory distress. negative: Wheezes, Rales Cardiovascular: positive: Regular rate & rhythm, No murmur. negative: Tachycardia, Systolic murmur Abdomen: positive: Non-tender, No distention. negative: Tenderness Skin: positive: Warm, Dry, Other (There is a 1 cm bullae noted over the third meta tarsal with surrounding necrosis. No purulent drainage. There is also an ulceration over the plantar surface and between the second and third metatarsal.) Extremities: positive: No pedal edema Neurologic/Psychiatric: negative: Disoriented to person, Disoriented to place - Lab Results Fish Bones: 02/26/22 05:35 02/26/22 05:35 Other Labs: Lab Results x24hrs 02/26/22 02/26/2202/25/22 Range/Units 05:35 05:35 20:44 WBC 20.2 H (4.8-10.8) x10^3/uL RBC 3.77 L (4.20-5.40) 10^6/uL Hgb 10.7 L (12.0-16.0) g/dL Hct 32.4 L (37.0-47.0) % MCV 85.9 (81.0-99.0) fL MCH 28.4 (27.0-31.0) pg MCHC 33.0 (32.0-36.0) g/dL RDW 12.2 (12.0-15.0) % Plt Count 248 (130-450) 10^3/uL MPV 10.0 (7.9-10.8) fL Neut # (Auto) Not Reportable Lymph # (Auto) Not Reportable [place] # (Auto) Not Reportable Eos # (Auto) Not Reportable Baso # (Auto) Not Reportable Absolute Nucleated RBC Not Reportable Total Counted 100 Band Neuts % (Manual) 1 (0 - 10) % Abnorm Lymph % (Manual) 0 % Nucleated RBC % Not Reportable Neutrophils # (Manual) 16.6 H (1.5-6.6) 10^3/uL Lymphocytes # (Manual) 2.4 (1.5-3.5) 10^3/uL Monocytes # (Manual) 1.2 H (0.0-1.0) 10^3/uL Eosinophils # (Manual) 0.0 (0-0.7) 10^3/uL Basophils # (Manual) 0.0 (0-0.1) 10^3/uL Differential Comment MANUAL DIFFERENTIAL WBC Morphology NORMAL APPEARANCE (NORMAL) Platelet Estimate NORMAL (130-450,000) (NORMAL) Platelet Morphology NORMAL APPEARANCE (NORMAL) RBC Morph Micro Appear NORMAL APPEARANCE (NORMAL) Sodium 133 L (135-145) mmol/L Potassium 3.1 L (3.5-5.0) mmol/L Chloride 101 (101-111) mmol/L Carbon Dioxide 26 (21-32) mmol/L Anion Gap 6.0 (6-13) BUN 12 (6-20) mg/dL Creatinine 0.6 (0.4-1.0) mg/dL Estimated GFR (MDRD) 107 (>89) Glucose 277 H (70-100) mg/dL POC Whole Bld Glucose 295 H (70 - 100) mg/dL Estimat Average Glucose (70-100) mg/dL Hemoglobin A1c % (4.27-6.07) % Lactic Acid (0.5-2.2) mmol/L Calcium 8.0 L (8.5-10.3) mg/dL Total Bilirubin (0.2-1.0) mg/dL AST (10-42) IU/L ALT (10-60) IU/L Alkaline Phosphatase (42-121) IU/L C-Reactive Protein 31.7 H (0-1.0) mg/dL Total Protein (6.7-8.2) g/dL Albumin (3.2-5.5) g/dL Globulin (2.1-4.2) g/dL Albumin/Globulin Ratio (1.0-2.2) Procalcitonin (<0.5) ng/mL Urine Color Urine Clarity (CLEAR) Urine pH (5.0-7.5) PH Ur Specific [place] (1.002-1.030) Urine Protein (NEGATIVE) mg/dL Urine Glucose (UA) (NEGATIVE) mg/dL Urine Ketones (NEGATIVE) mg/dL Urine Occult Blood (NEGATIVE) Urine Nitrite (NEGATIVE) Urine Bilirubin (NEGATIVE) Urine Urobilinogen (NORMAL) E.U./dL Ur Leukocyte Esterase (NEGATIVE) Urine RBC (0-5) /HPF Urine WBC (0-5) /HPF Ur Squamous Epith Cells (<= Few) Urine Bacteria (None Seen) /HPF Urine Culture Comments Nasal Adenovirus (PCR) Nasal B. parapertussis DNA (PCR) Nasal Coronavir 229E PCR Nasal Coronavir HKU1 PCR Nasal Coronavir NL63 PCR Nasal Coronavir OC43 PCR Nasal Enterovir/Rhinovir PCR Nasal Influenza B PCR Nasal Influenza A PCR Nasal Parainfluen 1 PCR Nasal Parainfluen 2 PCR Nasal Parainfluen 3 PCR Nasal Parainfluen 4 PCR Nasal RSV (PCR) Nasal B.pertussis DNA PCR Nasal C.pneumoniae (PCR) [place] Human Metapneumo PCR Nasal M.pneumoniae (PCR) Nasal SARS-CoV-2 (PCR) 02/25/22 02/25/22 02/25/22 Range/Units 19:17 17:39 16:50 WBC (4.8-10.8) x10^3/uL RBC (4.20-5.40) 10^6/uL Hgb (12.0-16.0) g/dL Hct (37.0-47.0) % MCV (81.0-99.0) fL MCH (27.0-31.0) pg MCHC (32.0-36.0) g/dL RDW (12.0-15.0) % Plt Count (130-450) 10^3/uL MPV (7.9-10.8) fL Neut # (Auto) Lymph # (Auto) [place] # (Auto) Eos # (Auto) Baso # (Auto) Absolute Nucleated RBC Total Counted Band Neuts % (Manual) (0 - 10) % Abnorm Lymph % (Manual) % Nucleated RBC % Neutrophils # (Manual) (1.5-6.6) 10^3/uL Lymphocytes # (Manual) (1.5-3.5) 10^3/uL Monocytes # (Manual) (0.0-1.0) 10^3/uL Eosinophils # (Manual) (0-0.7) 10^3/uL Basophils # (Manual) (0-0.1) 10^3/uL Differential Comment WBC Morphology (NORMAL) Platelet Estimate (NORMAL) Platelet Morphology (NORMAL) RBC Morph Micro Appear (NORMAL) Sodium (135-145) mmol/L Potassium (3.5-5.0) mmol/L Chloride (101-111) mmol/L Carbon Dioxide (21-32) mmol/L Anion Gap (6-13) BUN (6-20) mg/dL Creatinine (0.4-1.0) mg/dL Estimated GFR (MDRD) (>89) Glucose (70-100) mg/dL POC Whole Bld Glucose 330 H (70 - 100) mg/dL Estimat Average Glucose (70-100) mg/dL Hemoglobin A1c % (4.27-6.07) % Lactic Acid (0.5-2.2) mmol/L Calcium (8.5-10.3) mg/dL Total Bilirubin (0.2-1.0) mg/dL AST (10-42) IU/L ALT (10-60) IU/L Alkaline Phosphatase (42-121) IU/L C-Reactive Protein (0-1.0) mg/dL Total Protein (6.7-8.2) g/dL Albumin (3.2-5.5) g/dL Globulin (2.1-4.2) g/dL Albumin/Globulin Ratio (1.0-2.2) Procalcitonin (<0.5) ng/mL Urine Color YELLOW Urine Clarity CLOUDY (CLEAR) Urine pH 6.0 (5.0-7.5) PH Ur Specific [place] 1.010 (1.002-1.030) Urine Protein TRACE (NEGATIVE) mg/dL Urine Glucose (UA) >=1000 H (NEGATIVE) mg/dL Urine Ketones NEGATIVE (NEGATIVE) mg/dL Urine Occult Blood TRACE-INTA (NEGATIVE) Urine Nitrite NEGATIVE (NEGATIVE) Urine Bilirubin NEGATIVE (NEGATIVE) Urine Urobilinogen 0.2 (NORMAL) (NORMAL) E.U./dL Ur Leukocyte Esterase SMALL H (NEGATIVE) Urine RBC 0-5 (0-5) /HPF Urine WBC 6-10 H (0-5) /HPF Ur Squamous Epith Cells MANY Squamous H (<= Few) Urine Bacteria Moderate H (None Seen) /HPF Urine Culture Comments NOT INDICATED Nasal Adenovirus (PCR) NOT DETECTED Nasal B. parapertussis DNA (PCR) NOT DETECTED Nasal Coronavir 229E PCR NOT DETECTED Nasal Coronavir HKU1 PCR NOT DETECTED Nasal Coronavir NL63 PCR NOT DETECTED Nasal Coronavir OC43 PCR NOT DETECTED Nasal Enterovir/Rhinovir PCR NOT DETECTED Nasal Influenza B PCR NOT DETECTED Nasal Influenza A PCR NOT DETECTED Nasal Parainfluen 1 PCR NOT DETECTED Nasal Parainfluen 2 PCR NOT DETECTED Nasal Parainfluen 3 PCR NOT DETECTED Nasal Parainfluen 4 PCR NOT DETECTED Nasal RSV (PCR) NOT DETECTED Nasal B.pertussis DNA PCR NOT DETECTED Nasal C.pneumoniae (PCR) NOT DETECTED [place] Human Metapneumo PCR NOT DETECTED Nasal M.pneumoniae (PCR) NOT DETECTED Nasal SARS-CoV-2 (PCR) NOT DETECTED 02/25/22 02/25/22 02/25/22 Range/Units 15:56 15:56 15:56 WBC (4.8-10.8) x10^3/uL RBC (4.20-5.40) 10^6/uL Hgb (12.0-16.0) g/dL Hct (37.0-47.0) % MCV (81.0-99.0) fL MCH (27.0-31.0) pg MCHC (32.0-36.0) g/dL RDW (12.0-15.0) % Plt Count (130-450) 10^3/uL MPV (7.9-10.8) fL Neut # (Auto) Lymph # (Auto) [place] # (Auto) Eos # (Auto) Baso # (Auto) Absolute Nucleated RBC Total Counted Band Neuts % (Manual) (0 - 10) % Abnorm Lymph % (Manual) % Nucleated RBC % Neutrophils # (Manual) (1.5-6.6) 10^3/uL Lymphocytes # (Manual) (1.5-3.5) 10^3/uL Monocytes # (Manual) (0.0-1.0) 10^3/uL Eosinophils # (Manual) (0-0.7) 10^3/uL Basophils # (Manual) (0-0.1) 10^3/uL Differential Comment WBC Morphology (NORMAL) Platelet Estimate (NORMAL) Platelet Morphology (NORMAL) RBC Morph Micro Appear (NORMAL) Sodium (135-145) mmol/L Potassium (3.5-5.0) mmol/L Chloride (101-111) mmol/L Carbon Dioxide (21-32) mmol/L Anion Gap (6-13) BUN (6-20) mg/dL Creatinine (0.4-1.0) mg/dL Estimated GFR (MDRD) (>89) Glucose (70-100) mg/dL POC Whole Bld Glucose (70 - 100) mg/dL Estimat Average Glucose 332 H (70-100) mg/dL Hemoglobin A1c % 13.2 H (4.27-6.07) % Lactic Acid (0.5-2.2) mmol/L Calcium (8.5-10.3) mg/dL Total Bilirubin (0.2-1.0) mg/dL AST (10-42) IU/L ALT (10-60) IU/L Alkaline Phosphatase (42-121) IU/L C-Reactive Protein 37.0 H (0-1.0) mg/dL Total Protein (6.7-8.2) g/dL Albumin (3.2-5.5) g/dL Globulin (2.1-4.2) g/dL Albumin/Globulin Ratio (1.0-2.2) Procalcitonin 1.67 H (<0.5) ng/mL Urine Color Urine Clarity (CLEAR) Urine pH (5.0-7.5) PH Ur Specific [place] (1.002-1.030) Urine Protein (NEGATIVE) mg/dL Urine Glucose (UA) (NEGATIVE) mg/dL Urine Ketones (NEGATIVE) mg/dL Urine Occult Blood (NEGATIVE) Urine Nitrite (NEGATIVE) Urine Bilirubin (NEGATIVE) Urine Urobilinogen (NORMAL) E.U./dL Ur Leukocyte Esterase (NEGATIVE) Urine RBC (0-5) /HPF Urine WBC (0-5) /HPF Ur Squamous Epith Cells (<= Few) Urine Bacteria (None Seen) /HPF Urine Culture Comments Nasal Adenovirus (PCR) Nasal B. parapertussis DNA (PCR) Nasal Coronavir 229E PCR Nasal Coronavir HKU1 PCR Nasal Coronavir NL63 PCR Nasal Coronavir OC43 PCR Nasal Enterovir/Rhinovir PCR Nasal Influenza B PCR Nasal Influenza A PCR Nasal Parainfluen 1 PCR Nasal Parainfluen 2 PCR Nasal Parainfluen 3 PCR Nasal Parainfluen 4 PCR Nasal RSV (PCR) Nasal B.pertussis DNA PCR Nasal C.pneumoniae (PCR) [place] Human Metapneumo PCR Nasal M.pneumoniae (PCR) Nasal SARS-CoV-2 (PCR) 02/25/22 02/25/22 02/25/22 Range/Units 15:56 15:56 15:56 WBC 28.2 H (4.8-10.8) x10^3/uL RBC 4.59 (4.20-5.40) 10^6/uL Hgb 13.1 (12.0-16.0) g/dL Hct 39.0 (37.0-47.0) % MCV 85.0 (81.0-99.0) fL MCH 28.5 (27.0-31.0) pg MCHC 33.6 (32.0-36.0) g/dL RDW 12.1 (12.0-15.0) % Plt Count 308 (130-450) 10^3/uL MPV 9.9 (7.9-10.8) fL Neut # (Auto) Not Reportable Lymph # (Auto) Not Reportable [place] # (Auto) Not Reportable Eos # (Auto) Not Reportable Baso # (Auto) Not Reportable Absolute Nucleated RBC Not Reportable Total Counted 100 Band Neuts % (Manual) 1 (0 - 10) % Abnorm Lymph % (Manual) 0 % Nucleated RBC % Not Reportable Neutrophils # (Manual) 23.7 H (1.5-6.6) 10^3/uL Lymphocytes # (Manual) 3.1 (1.5-3.5) 10^3/uL Monocytes # (Manual) 1.4 H (0.0-1.0) 10^3/uL Eosinophils # (Manual) 0.0 (0-0.7) 10^3/uL Basophils # (Manual) 0.0 (0-0.1) 10^3/uL Differential Comment MANUAL DIFFERENTIAL WBC Morphology NORMAL APPEARANCE (NORMAL) Platelet Estimate NORMAL (130-450,000) (NORMAL) Platelet Morphology NORMAL APPEARANCE (NORMAL) RBC Morph Micro Appear NORMAL APPEARANCE (NORMAL) Sodium 128 L (135-145) mmol/L Potassium 3.7 (3.5-5.0) mmol/L Chloride 92 L (101-111) mmol/L Carbon Dioxide 25 (21-32) mmol/L Anion Gap 11.0 (6-13) BUN 11 (6-20) mg/dL Creatinine 0.6 (0.4-1.0) mg/dL Estimated GFR (MDRD) 107 (>89) Glucose 374 H (70-100) mg/dL POC Whole Bld Glucose (70 - 100) mg/dL Estimat Average Glucose (70-100) mg/dL Hemoglobin A1c % (4.27-6.07) % Lactic Acid 1.3 (0.5-2.2) mmol/L Calcium 8.6 (8.5-10.3) mg/dL Total Bilirubin 1.0 (0.2-1.0) mg/dL AST 13 (10-42) IU/L ALT 19 (10-60) IU/L Alkaline Phosphatase 95 (42-121) IU/L C-Reactive Protein (0-1.0) mg/dL Total Protein 7.7 (6.7-8.2) g/dL Albumin 3.1 L (3.2-5.5) g/dL Globulin 4.6 H (2.1-4.2) g/dL Albumin/Globulin Ratio 0.7 L (1.0-2.2) Procalcitonin (<0.5) ng/mL Urine Color Urine Clarity (CLEAR) Urine pH (5.0-7.5) PH Ur Specific [place] (1.002-1.030) Urine Protein (NEGATIVE) mg/dL Urine Glucose (UA) (NEGATIVE) mg/dL Urine Ketones (NEGATIVE) mg/dL Urine Occult Blood (NEGATIVE) Urine Nitrite (NEGATIVE) Urine Bilirubin (NEGATIVE) Urine Urobilinogen (NORMAL) E.U./dL Ur Leukocyte Esterase (NEGATIVE) Urine RBC (0-5) /HPF Urine WBC (0-5) /HPF Ur Squamous Epith Cells (<= Few) Urine Bacteria (None Seen) /HPF Urine Culture Comments Nasal Adenovirus (PCR) Nasal B. parapertussis DNA (PCR) Nasal Coronavir 229E PCR Nasal Coronavir HKU1 PCR Nasal Coronavir NL63 PCR Nasal Coronavir OC43 PCR Nasal Enterovir/Rhinovir PCR Nasal Influenza B PCR Nasal Influenza A PCR Nasal Parainfluen 1 PCR Nasal Parainfluen 2 PCR Nasal Parainfluen 3 PCR Nasal Parainfluen 4 PCR Nasal RSV (PCR) Nasal B.pertussis DNA PCR Nasal C.pneumoniae (PCR) [place] Human Metapneumo PCR Nasal M.pneumoniae (PCR) Nasal SARS-CoV-2 (PCR) ABX Reporting Has patient been on IV antibiotics over the past 48 hours?: Yes Sepsis Event Note (H) - Evaluation Current Stage of Sepsis: Sepsis Possible source of Sepsis: positive: Skin/soft tissue - Sepsis Criteria Sepsis Criteria: Recorded Heart Rate greater than 90 bpm, Recorded Respiratory Rate greater than 20, WBC count greater than 12,000 or less than 4000 Assessment/Plan - Problem List (1) Sepsis Impression: She is improved from a sepsis standpoint. She has been afebrile here and her heart rate is improved. Her blood pressure has been stable. Blood cultures are growing Streptococcus. She remains on vancomycin and cefepime. Continue with daily CBC to ensure her white count continues to improve. Qualifiers: Sepsis type: sepsis due to unspecified organism Sepsis acute organ dysfunction status: without acute organ dysfunction Qualified Code(s): A41.9 - Sepsis, unspecified organism (2) Diabetic foot ulcer Impression: This is a cause of her sepsis. This also does appear to be infected. Blood cultures are growing Streptococcus. She remains on vancomycin and cefepime. Arterial duplex ordered today showed no significant arterial stenosis. We have consulted orthopedic surgery and appreciate their input regarding need for debridement. Qualifiers: Diabetic foot ulcer location: midfoot Diabetes mellitus type: type 2 Laterality: left Non-pressure ulcer stage: unspecified non-pressure ulcer stage Qualified Code(s): E11.621 - Type 2 diabetes mellitus with foot ulcer; L97.429 - Non-pressure chronic ulcer of left heel and midfoot with unspecified severity (3) Bacteremia due to Streptococcus Impression: Initial blood culture growing Streptococcus group B. This is likely due to the diabetic foot ulcer. She remains on vancomycin and cefepime for the time being but once she clinically improves we will look to switch her to IV ceftriaxone. We will need to repeat blood cultures for 8 hours after IV antibiotics. She will also need an echocardiogram which we cannot obtain till early next week but she will likely need to be hospitalized until then either way to ensure negative cultures and she will need a PICC line. (4) Hyperglycemia due to type 2 diabetes mellitus Impression: Her A1c was 13.2% and her blood glucoses been difficult to control. We will increase her Lantus to 15 units and her NovoLog to 6 unit with meals. Continue sliding scale. life skills educator has been consulted. She is agreeable to using insulin on discharge. Qualifiers: Diabetes mellitus residential insulin use: without residential use Qualified Code(s): E11.65 - Type 2 diabetes mellitus with hyperglycemia (5) Hyponatremia Impression: This was likely multifactorial and secondary to hypovolemic hyponatremia as well as pseudohyponatremia due to hyperglycemia. Her sodium today is improved to 133 but remains decreased likely due to the hyperglycemia. This showed returned within normal limits as we treat the hyperglycemia. (6) Schizoaffective disorder Impression: Continue home zyprexa.
[2022-02-26] MEDS: INSULIN ASPART 300 UNIT/3 ML PEN SUBQ SCH ×6 (08:05→20:58)
[2022-02-26] MEDS: CEFEPIME 2 GM in SODIUM CHLORIDE 0.9% MINIBAG 100 ML IV SCH ×2 (08:07→20:56)
[2022-02-26] MEDS: ENOXAPARIN 40 MG/0.4 ML SYRINGE SUBQ SCH (08:07)
--- NOTE | 2022-02-26 12:20 | Ultrasound Report ---
PROCEDURE: Duplex Lwr Ext Arterial LT INDICATIONS: Foot ulcer. TECHNIQUE: Color and pulse Doppler interrogation was performed of the left lower extremity arterial system, with image documentation. COMPARISON: None FINDINGS: Common femoral artery: 108 cm/sec, with triphasic flow. Deep femoral artery: 79 cm/sec, with triphasic flow. Proximal superficial femoral artery: 114 cm/sec, with triphasic flow. Mid superficial femoral artery: 106 cm/sec, with triphasic flow. Distal superficial femoral artery: 118 cm/sec, with triphasic flow. Popliteal artery: 112 cm/sec, with triphasic flow. Posterior tibial artery: 127 cm/sec, with biphasic flow. Anterior tibial artery/dorsalis pedis: 145/87 cm/sec, with triphasic/biphasic flow. Inman-scale imaging description: No significant plaque. A lymph node in the left groin is seen measuring 2.8 x 1.2 cm IMPRESSION: Normal left lower extremity arteries with no significant stenosis. Reviewed by: León Gomez on 02/26/2022 11:18 AM JOSE LUIS Approved by: León Gomez on 02/26/2022 11:18 AM JOSE LUIS Station ID: [id number]
[2022-02-26] MEDS ORDERED: POTASSIUM CHLORIDE 20 MEQ TABLET PO ONE (12:40)
--- NOTE | 2022-02-26 15:09 | CONSULTATION NOTE ---
Referring Provider Name of Referring Provider:: Dr. Angel Consult Date: 02/26/22 (Left Foot infection ) Chief Complaint - Chief Complaint Chief Complaint: Bilateral foot ulcers. Left foot infection History of Present Illness - Admitted From Admitted From:: Emergency Room - History Obtained From Records Reviewed: Yes History obtained from: Patient Exam Limitations: None - History of Present Illness HPI Comment/Other: 46-year-old female with a past medical history of diabetes (A1c greater than 13) and current smoker who presents to the emergency department with fever and chills found to have cellulitis and bacteremia. Orthopedic consult placed for bilateral foot ulcers with question of osteomyelitis and left foot ulcer. This patient was seen on 02/26/[address] Lott and myself. She reports bilateral foot ulcers lasting more than 1 year. She is seen by wound care here it [facility]. She was on antibiotics for an unknown amount of time with resolution of right foot ulcer. However the left foot ulcer continues. She reports having diabetic shoes at home but is now wearing slippers at home instead of the diabetic shoes. There is a history of both numbness and tingling to the left foot. She reports mild pain in the left foot. She reports improvement in pain after being treated with IV antibiotics at [facility] She lives in [place] with her mother. History - Past Medical History Cardiovascular: reports: None Respiratory: reports: None Neuro: reports: Peripheral neuropathy (Numbness of dorsum of feet, occasional shooting pain up her leg (pain is rare & she takes Tylenol or Motrin)) Endocrine/Autoimmune: reports: Type 2 diabetes (She does not do fingerstick checks because she "ran out of glucometer strips". She cannot remember what her old glucose levels were when she used to check fingerstick blood glu levels.) GI: reports: None LOAD OUT PERSON: reports: None : reports: None HEENT: reports: None Psych: reports: Depression, Anxiety, Other (schizoaffective disorder) Musculoskeletal: reports: None Derm: reports: None MRSA Hx?: No - Family & Social History Family History: Mother: Alive and Well (2 children, 1 son, 1 daughter are alive and well), Father: Alive and Well, Other family: Alive and Well Family History Comment/Other: Diabetes runs in multiple family members Living arrangement: At home Living Situation: With family Social History Notes: Lives in her parents house. Her adult daughter lives with them. She has an adult son who lives in [place]. She is . She smokes 1 pack/day. She drinks rare alcohol. No illicit drug use history. Disability for her diabetes and schizoaffective disorder. 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 - Substance History Use: Uses substance without health or social issues: Tobacco - POLST Patient has POLST: No POLST Status: Full Code Meds/Allgy - Home Medications Home Medications: Ambulatory Orders Medication Instructions Recorded Confirmed glipiZIDE [Glipizide] 10 mg PO DAILY 10/20/19 02/25/22 OLANZapine [Olanzapine] 20 mg PO QPM 02/06/20 02/25/22 - Allergies Allergies/Adverse Reactions: Allergies Allergy/AdvReac Type Severity Reaction Status Date / Time No Known Drug Allergies Allergy Verified 02/25/22 15:47 Exam - Vital Signs Vital Signs: Vital Signs x48h Temp Pulse Resp BP Pulse Ox 02/26/22 13:00 36.3 C L 91 19 124/75 93 02/26/22 07:20 36.7 C 84 18 109/69 96 - Physical Exam General Appearance: positive: Mild distress, Lethargic Neurologic/Psychiatric: positive: Oriented x3 Comments/Other: No obvious clinical deformity Tightness of tendoachilles bilaterally 1 cm full-thickness ulcer on the left foot at the second metatarsal head plantar surface Ulcer probed with sterile cotton-tipped applicator found to have intact capsule without communication with bone. Hair and debris present at ulcer base. No ulcer or drainage including pus. Swelling of forefoot with mild erythema, no skin blisters Mild mottling of the lesser toes but intact circulation Nonpainful range of motion of left foot and ankle Conclusion and Plan - Lab Results Microbiology Results 02/25/22 15:56 Blood - Right Arm Blood Culture (PCR) - Final Laboratory Results 02/26/22 10:59: POC Whole Bld Glucose 335 H 02/26/22 09:50: Nasal Screen MRSA (PCR) NEGATIVE 02/26/22 07:15: POC Whole Bld Glucose 293 H 02/26/22 05:35: Sodium 133 L, Potassium 3.1 L, Chloride 101, Carbon Dioxide 26, Anion Gap 6.0, BUN 12, Creatinine 0.6, Estimated GFR (MDRD) 107, Glucose 277 H, Calcium 8.0 L, C-Reactive Protein 31.7 H 02/26/22 05:35: WBC 20.2 H, RBC 3.77 L, Hgb 10.7 L, Hct 32.4 L, MCV 85.9, MCH 28.4, MCHC 33.0, RDW 12.2, Plt Count 248, MPV 10.0, Neut # (Auto) Not Reportable, Lymph # (Auto) Not Reportable, [place] # (Auto) Not Reportable, Eos # (Auto) Not Reportable, Baso # (Auto) Not Reportable, Absolute Nucleated RBC Not Reportable, Total Counted 100, Band Neuts % (Manual) 1, Abnorm Lymph % (Manual) 0, Nucleated RBC % Not Reportable, Neutrophils # (Manual) 16.6 H, Lymphocytes # (Manual) 2.4, Monocytes # (Manual) 1.2 H, Eosinophils # (Manual) 0.0, Basophils # (Manual) 0.0, Differential Comment MANUAL DIFFERENTIAL, WBC Morphology NORMAL APPEARANCE, Platelet Estimate NORMAL (130-450,000), Platelet Morphology NORMAL APPEARANCE, RBC Morph Micro Appear NORMAL APPEARANCE 02/25/22 20:44: POC Whole Bld Glucose 295 H 02/25/22 19:17: Urine Color YELLOW, Urine Clarity CLOUDY, Urine pH 6.0, Ur Specific [place] 1.010, Urine Protein TRACE, Urine Glucose (UA) >=1000 H, Urine Ketones NEGATIVE, Urine Occult Blood TRACE-INTA, Urine Nitrite NEGATIVE, Urine Bilirubin NEGATIVE, Urine Urobilinogen 0.2 (NORMAL), Ur Leukocyte Esterase SMALL H, Urine RBC 0-5, Urine WBC 6-10 H, Ur Squamous Epith Cells MANY Squamous H, Urine Bacteria Moderate H, Urine Culture Comments NOT INDICATED 02/25/22 17:39: POC Whole Bld Glucose 330 H 02/25/22 16:50: Nasal Adenovirus (PCR) NOT DETECTED, Nasal B. parapertussis DNA (PCR) NOT DETECTED, Nasal Coronavir 229E PCR NOT DETECTED, Nasal Coronavir HKU1 PCR NOT DETECTED, Nasal Coronavir NL63 PCR NOT DETECTED, Nasal Coronavir OC43 PCR NOT DETECTED, Nasal Enterovir/Rhinovir PCR NOT DETECTED, Nasal Influenza B PCR NOT DETECTED, Nasal Influenza A PCR NOT DETECTED, Nasal Parainfluen 1 PCR NOT DETECTED, Nasal Parainfluen 2 PCR NOT DETECTED, Nasal Parainfluen 3 PCR NOT DETECTED, Nasal Parainfluen 4 PCR NOT DETECTED, Nasal RSV (PCR) NOT DETECTED, Nasal B.pertussis DNA PCR NOT DETECTED, Nasal C.pneumoniae (PCR) NOT DETECTED, [place] Human Metapneumo PCR NOT DETECTED, Nasal M.pneumoniae (PCR) NOT DETECTED, Nasal SARS-CoV-2 (PCR) NOT DETECTED 02/25/22 15:56: C-Reactive Protein 37.0 H 02/25/22 15:56: Procalcitonin 1.67 H 02/25/22 15:56: Estimat Average Glucose 332 H, Hemoglobin A1c % 13.2 H 02/25/22 15:56: Lactic Acid 1.3 02/25/22 15:56: Sodium 128 L, Potassium 3.7, Chloride 92 L, Carbon Dioxide 25, Anion Gap 11.0, BUN 11, Creatinine 0.6, Estimated GFR (MDRD) 107, Glucose 374 H, Calcium 8.6, Total Bilirubin 1.0, AST 13, ALT 19, Alkaline Phosphatase 95, Total Protein 7.7, Albumin 3.1 L, Globulin 4.6 H, Albumin/Globulin Ratio 0.7 L 02/25/22 15:56: WBC 28.2 H, RBC 4.59, Hgb 13.1, Hct 39.0, MCV 85.0, MCH 28.5, MCHC 33.6, RDW 12.1, Plt Count 308, MPV 9.9, Neut # (Auto) Not Reportable, Lymph # (Auto) Not Reportable, [place] # (Auto) Not Reportable, Eos # (Auto) Not Reportable, Baso # (Auto) Not Reportable, Absolute Nucleated RBC Not Reportable, Total Counted 100, Band Neuts % (Manual) 1, Abnorm Lymph % (Manual) 0, Nuclea david RBC % Not Reportable, Neutrophils # (Manual) 23.7 H, Lymphocytes # (Manual) 3.1, Monocytes # (Manual) 1.4 H, Eosinophils # (Manual) 0.0, Basophils # (Manual) 0.0, Differential Comment MANUAL DIFFERENTIAL, WBC Morphology NORMAL APPEARANCE, Platelet Estimate NORMAL (130-450,000), Platelet Morphology NORMAL APPEARANCE, RBC Morph Micro Appear NORMAL APPEARANCE - Diagnostic Imaging Results Diagnostic Imaging Results: positive: Read independently Diagnostic Imaging Results Comments: X-rays reviewed and do not show any specific sign for osteomyelitis - Diagnosis Diagnosis: Diabetic foot ulcer with cellulitis of left foot, diabetic peripherial neuropathy - Plan Plan: Continue treatment for cellulitis as per hospitalist. Follow-up with orthopedic clinic after discharge for management of chronic foot ulcers Orthopedic team will not see patient in hospital unless specifically asked by primary team. Patient should follow-up in orthopedic clinic within 7 days of discharge no surgical indications at this time
[2022-02-26] MEDS ORDERED: INSULIN ASPART 300 UNIT/3 ML PEN SUBQ SCH (17:00)
[2022-02-26 17:26] LABS: VANCOMYCIN,TROUGH 29.3 ug/mL (10.0-20.0)
[2022-02-26] MEDS: MULTIVITAMIN W/MINERALS TABLET PO SCH (17:33)
--- NOTE | 2022-02-26 17:39 | PHARMACY PROGRESS NOTE ---
- Therapy Status Therapy status: Trough supratherapeutic Basis for treatment: Empirical Treatment indication: Diabetic ulcer, sepsis Trough goal: 15-20 Concurrent antibiotics: Cefepime - FABY Risk Risk level for Acute Kidney Injury: High Acute Kidney Injury risk factors: Goal trough >15, Diabetes, Sepsis - Monitoring and Recommendation Clinical response to treatment: I&O Previous 24 hours 02/24/22 02/25/22 02/26/22 23:59 23:59 23:59 Intake Total 2162 3860.000 Output Total 1050 1100 Balance 1112 2760.000 Lab Results 02/26/22 02/25/22 05:35 15:56 BUN 12 11 Creatinine 0.6 0.6 Estimated GFR (MDRD) 107 107 Vancomycin Monitoring 02/26/22 16:00 Vancomycin Trough 29.3 H* Cultures 02/25/22 15:56 Blood - Right Arm Blood Culture - Preliminary 02/25/22 16:08 Blood - Right Iv-Start Blood Culture - Preliminary 02/25/22 15:56 Blood - Right Arm Blood Culture (PCR) - Final Monitoring plan: Daily serum creatinine, Suggest ongoing fluid replacement Areas for additional monitoring: IV to PO when appropriate, Therapy de- escalation based on culture results, Acute Kidney Injury Pharmacy recommendation: Decrease dose (Decrease maintenace dose to 1 gm q12h starting tomorrow at 0800 for estimated trough of 17.6 mcg/mL and estimated AUC/JASBIR of 561 mcg*hr/mL)
[2022-02-26] MEDS: OLANZapine ODT 5 MG TABLET TL SCH (20:55)
[2022-02-26] MEDS ORDERED: INSULIN GLARGINE 300 UNIT/3 ML PEN SUBQ SCH (21:00)
[2022-02-27 06:28] LABS: BASOPHILS % (AUTO) 0.4 %; EOSINOPHILS % (AUTO) 2.9 %; HCT - HEMATOCRIT 33.1 % (37.0-47.0); HGB - HEMOGLOBIN 10.9 g/dL (12.0-16.0); LYMPHOCYTES % (AUTO) 11.8 %; MEAN CORPUSCULAR HEMOGLOBIN 27.9 pg (27.0-31.0); MEAN CORPUSCULAR HGB CONC 32.9 g/dL (32.0-36.0); MEAN CORPUSCULAR VOLUME 84.9 fL (81.0-99.0); MEAN PLATELET VOLUME 9.9 fL (7.9-10.8); MONOCYTES % (AUTO) 9.1 %; NEUTROPHILS % (AUTO) 75.1 %; PLT - PLATELET COUNT 309 10^3/uL (130-450); RED CELL DISTRIBUTION WIDTH 12.6 % (12.0-15.0); WHITE BLOOD COUNT 16.8 x10^3/uL (4.8-10.8)
[2022-02-27 06:37] LABS: ABNORMAL LYMPHS % (MANUAL) 0 %
[2022-02-27 06:57] LABS: CALCIUM 8.5 mg/dL (8.5-10.3); CREATININE 1.4 mg/dL (0.4-1.0); CRP - C-REACTIVE PROTEIN 31.2 mg/dL (0-1.0); POTASSIUM 3.8 mmol/L (3.5-5.0)
[2022-02-27 07:09] LABS: BAND NEUTROPHILS % (MANUAL) 12 %; DIFFERENTIAL COMMENT MANUAL DIFFERENTIAL; EOSINOPHILS # (MANUAL) 0.2 10^3/uL (0-0.7); LYMPHOCYTES % (MANUAL) 12 %; MONOCYTES # (MANUAL) 0.7 10^3/uL (0.0-1.0); NEUTROPHILS # (MANUAL) 13.9 10^3/uL (1.5-6.6); PLATELET ESTIMATE, MANUAL NORMAL (130-450,000) (NORMAL); RBC MORPHOLOGY (MULTIPLE) NORMAL APPEARANCE (NORMAL)
--- NOTE | 2022-02-27 07:38 | PROVIDER PROGRESS NOTE ---
Subjective - Prog Note Date Prog Note Date: 02/27/22 - Subjective Subjective: She feels her left leg is still a little swollen. She has been having drainage from the left foot and so a dressing was placed. She denies any shortness of breath. Current Medications - Current Medications Current Medications: Active Medications Acetaminophen (Acetaminophen 325 Mg Tablet) 650 mg PO Q4HR PRN PRN Reason: Pain 1 to 4, or Fever Last Admin: 02/26/22 00:42 Dose: 650 mg Enoxaparin Sodium (Enoxaparin 40 Mg/0.4 Ml Syringe) 40 mg SUBQ DAILY [facility] Last Admin: 02/26/22 08:07 Dose: 40 mg Cefepime HCl 2 gm/ Sodium (Chloride) 100 mls @ 200 mls/hr IV BID [facility] Last Infusion: 02/26/22 22:24 Dose: Infused Vancomycin HCl 1 gm/ Sodium (Chloride) 250 mls @ 167 mls/hr IV Q12H [facility] Ibuprofen (Ibuprofen 600 Mg Tablet) 600 mg PO Q6HR PRN PRN Reason: PAIN 1-4 Last Admin: 02/26/22 11:54 Dose: 600 mg Insulin Aspart (Insulin Aspart 300 Unit/3 Ml Pen) 3 - 11 unit SUBQ 0800,1200,1700,2100 [facility]; Protocol Last Admin: 02/26/22 20:58 Dose: 7 unit Insulin Aspart (Insulin Aspart 300 Unit/3 Ml Pen) 10 unit SUBQ TIDWM [facility]; Protocol Insulin Glargine (Insulin Glargine 300 Unit/3 Ml Pen) 25 unit SUBQ QPM [facility] Lactobacillus Rhamnosus (Lactobacillus Rhamnosus Gg Capsule) 1 cap PO DAILY [facility] Morphine Sulfate (Morphine 2 Mg/Ml Carpuject) 2 mg IVP Q2HR PRN PRN Reason: Pain 8 to 10 Multivitamins/Minerals (Multivitamin W/Minerals Tablet) 1 tab PO DAILYWM [facility] Last Admin: 02/26/22 17:33 Dose: 1 tab Nicotine (Nicotine 14 Mg Patch) 1 patch TOP DAILY PRN PRN Reason: Nicotine Craving Olanzapine (Olanzapine Odt 5 Mg Tablet) 20 mg TL QPM [facility] Last Admin: 02/26/22 20:55 Dose: 20 mg Ondansetron HCl (Ondansetron Odt 4 Mg Tablet) 4 mg TL Q6HR PRN PRN Reason: Nausea / Vomiting Ondansetron HCl (Ondansetron 4 Mg/2 Ml Vial) 4 mg IVP Q6HR PRN PRN Reason: Nausea / Vomiting Sodium Chloride (Sodium Chloride Flush 0.9% 10 Ml Syringe) 10 ml IVP PRN PRN PRN Reason: NEEDED PER PROVIDER ORDERS Sodium Chloride (Sodium Chloride Flush 0.9% 10 Ml Syringe) 10 ml IVP 0100,0900,1700 [facility] Last Admin: 02/26/22 23:46 Dose: 10 ml glipiZIDE [Glipizide] 10 mg PO DAILY 10/20/19 OLANZapine [Olanzapine] 20 mg PO QPM 02/06/20 Objective - Vital Signs/Intake & Output Reviewed Vital Signs: Yes Vital Signs: Vital Signs x48h Temp Pulse Resp BP Pulse Ox 02/27/22 06:09 36.9 C 94 18 135/74 H 91 L 02/26/22 23:45 37.5 C 99 20 145/67 H 93 Intake & Output: Intake & Output 02/24/22 02/25/22 02/26/22 02/27/22 23:59 23:59 23:59 23:59 Intake Total 2162 4450.000 350 Output Total 1050 1100 Balance 1112 3350.000 350 - Objective General Appearance: positive: No acute distress, Alert Eyes Bilateral: positive: Normal inspection, Conjunctivae nml ENT: positive: ENT inspection nml Neck: positive: Nml inspection Respiratory: positive: No respiratory distress. negative: Wheezes, Rales Cardiovascular: positive: Regular rate & rhythm, No murmur. negative: Tachycardia Abdomen: positive: Non-tender, No distention. negative: Tenderness Skin: positive: Dry, Other (Dressing in place over left foot. The second and third metatarsal has a more present with serosanguineous drainage that is foul- smelling. No obvious purulence noticed. Erythema is improved.) Extremities: positive: Pedal edema (Trace edema left lower extremity.) Neurologic/Psychiatric: negative: Disoriented to person, Disoriented to place - Lab Results Fish Bones: 02/27/22 06:09 02/27/22 12:58 Other Labs: Lab Results x24hrs 02/27/22 02/27/22 02/26/22 Range/Units 06:09 06:04 20:52 WBC 16.8 H (4.8-10.8) x10^3/uL RBC 3.90 L (4.20-5.40) 10^6/uL Hgb 10.9 L (12.0-16.0) g/dL Hct 33.1 L (37.0-47.0) % MCV 84.9 (81.0-99.0) fL MCH 27.9 (27.0-31.0) pg MCHC 32.9 (32.0-36.0) g/dL RDW 12.6 (12.0-15.0) % Plt Count 309 (130-450) 10^3/uL MPV 9.9 (7.9-10.8) fL Neut # (Auto) Not Reportable Lymph # (Auto) Not Reportable [place] # (Auto) Not Reportable Eos # (Auto) Not Reportable Baso # (Auto) Not Reportable Absolute Nucleated RBC Not Reportable Total Counted 100 Band Neuts % (Manual) 12 H (0 - 10) % Abnorm Lymph % (Manual) 0 % Nucleated RBC % Not Reportable Neutrophils # (Manual) 13.9 H (1.5-6.6) 10^3/uL Lymphocytes # (Manual) 2.0 (1.5-3.5) 10^3/uL Monocytes # (Manual) 0.7 (0.0-1.0) 10^3/uL Eosinophils # (Manual) 0.2 (0-0.7) 10^3/uL Basophils # (Manual) 0.0 (0-0.1) 10^3/uL Differential Comment MANUAL DIFFERENTIAL Platelet Estimate NORMAL (130-450,000) (NORMAL) RBC Morph Micro Appear NORMAL APPEARANCE (NORMAL) Sodium 135 (135-145) mmol/L Potassium 3.8 (3.5-5.0) mmol/L Chloride 104 (101-111) mmol/L Carbon Dioxide 24 (21-32) mmol/L Anion Gap 7.0 (6-13) BUN 26 H (6-20) mg/dL Creatinine 1.4 H (0.4-1.0) mg/dL Estimated GFR (MDRD) 40 L (>89) Glucose 321 H (70-100) mg/dL POC Whole Bld Glucose 263 H (70 - 100) mg/dL Calcium 8.5 (8.5-10.3) mg/dL C-Reactive Protein 31.2 H (0-1.0) mg/dL Nasal Screen MRSA (PCR) (NEGATIVE) Vancomycin Trough (10.0-20.0) ug/mL 02/26/22 02/26/22 02/26/22 Range/Units 16:39 16:00 10:59 WBC (4.8-10.8) x10^3/uL RBC (4.20-5.40) 10^6/uL Hgb (12.0-16.0) g/dL Hct (37.0-47.0) % MCV (81.0-99.0) fL MCH (27.0-31.0) pg MCHC (32.0-36.0) g/dL RDW (12.0-15.0) % Plt Count (130-450) 10^3/uL MPV (7.9-10.8) fL Neut # (Auto) Lymph # (Auto) [place] # (Auto) Eos # (Auto) Baso # (Auto) Absolute Nucleated RBC Total Counted Band Neuts % (Manual) (0 - 10) % Abnorm Lymph % (Manual) % Nucleated RBC % Neutrophils # (Manual) (1.5-6.6) 10^3/uL Lymphocytes # (Manual) (1.5-3.5) 10^3/uL Monocytes # (Manual) (0.0-1.0) 10^3/uL Eosinophils # (Manual) (0-0.7) 10^3/uL Basophils # (Manual) (0-0.1) 10^3/uL Differential Comment Platelet Estimate (NORMAL) RBC Morph Micro Appear (NORMAL) Sodium (135-145) mmol/L Potassium (3.5-5.0) mmol/L Chloride (101-111) mmol/L Carbon Dioxide (21-32) mmol/L Anion Gap (6-13) BUN (6-20) mg/dL Creatinine (0.4-1.0) mg/dL Estimated GFR (MDRD) (>89) Glucose (70-100) mg/dL POC Whole Bld Glucose 370 H 335 H (70 - 100) mg/dL Calcium (8.5-10.3) mg/dL C-Reactive Protein (0-1.0) mg/dL Nasal Screen MRSA (PCR) (NEGATIVE) Vancomycin Trough 29.3 H* (10.0-20.0) ug/mL 02/26/22 Range/Units 09:50 WBC (4.8-10.8) x10^3/uL RBC (4.20-5.40) 10^6/uL Hgb (12.0-16.0) g/dL Hct (37.0-47.0) % MCV (81.0-99.0) fL MCH (27.0-31.0) pg MCHC (32.0-36.0) g/dL RDW (12.0-15.0) % Plt Count (130-450) 10^3/uL MPV (7.9-10.8) fL Neut # (Auto) Lymph # (Auto) [place] # (Auto) Eos # (Auto) Baso # (Auto) Absolute Nucleated RBC Total Counted Band Neuts % (Manual) (0 - 10) % Abnorm Lymph % (Manual) % Nucleated RBC % Neutrophils # (Manual) (1.5-6.6) 10^3/uL Lymphocytes # (Manual) (1.5-3.5) 10^3/uL Monocytes # (Manual) (0.0-1.0) 10^3/uL Eosinophils # (Manual) (0-0.7) 10^3/uL Basophils # (Manual) (0-0.1) 10^3/uL Differential Comment Platelet Estimate (NORMAL) RBC Morph Micro Appear (NORMAL) Sodium (135-145) mmol/L Potassium (3.5-5.0) mmol/L Chloride (101-111) mmol/L Carbon Dioxide (21-32) mmol/L Anion Gap (6-13) BUN (6-20) mg/dL Creatinine (0.4-1.0) mg/dL Estimated GFR (MDRD) (>89) Glucose (70-100) mg/dL POC Whole Bld Glucose (70 - 100) mg/dL Calcium (8.5-10.3) mg/dL C-Reactive Protein (0-1.0) mg/dL Nasal Screen MRSA (PCR) NEGATIVE (NEGATIVE) Vancomycin Trough (10.0-20.0) ug/mL ABX Reporting Has patient been on IV antibiotics over the past 48 hours?: Yes Sepsis Event Note (H) - Evaluation Current Stage of Sepsis: Sepsis Possible source of Sepsis: positive: Skin/soft tissue - Sepsis Criteria Sepsis Criteria: Recorded Heart Rate greater than 90 bpm, Recorded Respiratory Rate greater than 20, WBC count greater than 12,000 or less than 4000 Assessment/Plan - Problem List (1) Sepsis Impression: She continues to improve from a sepsis standpoint. Her blood pressures have been stable and she remains afebrile. The sepsis is secondary to the left foot infection. We will keep her on vancomycin and cefepime for 1 more day given she now has bands despite her reducing white count. Her CRP is also still quite elevated. Continue with daily CBC. Repeat blood cultures today. Qualifiers: Sepsis type: sepsis due to unspecified organism Sepsis acute organ dysfunction status: without acute organ dysfunction Qualified Code(s): A41.9 - Sepsis, unspecified organism (2) Diabetic foot ulcer Impression: This is ongoing but slowly improving. This is the cause of her sepsis. Her CRP is still slowly trending down. Her white count is improved but she does have bands today. Blood cultures are growing strep group B which we suspect is secondary to the foot ulcer infection. She was seen by orthopedic surgery and no surgical intervention is felt to be warranted at this time. Imaging was inconclusive for osteomyelitis. At this time we will keep her on vancomycin and cefepime and we will look to de-escalate to ceftriaxone tomorrow as long as she continues to improve. We will repeat blood cultures today. Continue with daily CBC and CRP. She will need a least 2 weeks of IV antibiotics Qualifiers: Diabetic foot ulcer location: midfoot Diabetes mellitus type: type 2 Laterality: left Non-pressure ulcer stage: unspecified non-pressure ulcer stage Qualified Code(s): E11.621 - Type 2 diabetes mellitus with foot ulcer; L97.429 - Non-pressure chronic ulcer of left heel and midfoot with unspecified severity (3) Bacteremia due to Streptococcus Impression: Initial blood cultures grew strep group B this is secondary to the foot infecti on. Clinically she is improving. We will keep her on vancomycin and cefepime for 1 more day given her CRP and white count is still elevated. We will switch to ceftriaxone tomorrow. We will repeat blood cultures today. If these are negative for [address] a PICC line on Wednesday. She will also need an echocardiogram before discharge and the earliest this can be done will be on Wednesday. She will need at least 2 weeks of IV antibiotics. (4) Acute kidney injury Impression: Her creatinine is elevated today at 1.4 which is an increase compared to her baseline of 0.6. The etiology of this is not clear at this time but her vancomycin trough was elevated at nearly 30 so this could be a contributing factor. IV fluids were discontinued yesterday but she does not appear to be hypovolemic. Her blood pressure has been stable for the most part although she did have a few readings in the 90 systolic although given her age this would not be unusual. We will resume IV fluids today with LR 1 L given over 8 hours. We will recheck a BMP this afternoon to ensure her creatinine is not rising. Pharmacy has already adjusted the dose of vancomycin. If her creatinine continues to rise we will obtain renal ultrasound, repeat urinalysis, urine sodium. (5) Hyperglycemia due to type 2 diabetes mellitus Impression: Her blood glucose remains poorly controlled. They have ranged in the high 200s to low 300s. Her A1c was greater than 13%. We will increase her Lantus today to 25 units in the evening and increase her NovoLog to 10 units with meals and continue with sliding scale. We will continue to titrate her insulin as needed. Continue carb controlled diet. panel installer was consulted. Qualifiers: Diabetes mellitus fci insulin use: without long term care pharmacist use Qualified Code(s): E11.65 - Type 2 diabetes mellitus with hyperglycemia (6) Schizoaffective disorder Impression: Stable. We are continuing her home olanzapine. (7) Hyponatremia Impression: This is not resolved and was secondary to the hyperglycemia and hypovolemic hyponatremia.
[2022-02-27] MEDS ORDERED: LACTATED RINGERS 1,000 ML IV SCH (08:00)
[2022-02-27] MEDS: SODIUM CHLORIDE FLUSH 0.9% 10 ML SYRINGE IVP SCH ×3 (08:26→23:38)
[2022-02-27] MEDS: CEFEPIME 2 GM in SODIUM CHLORIDE 0.9% MINIBAG 100 ML IV SCH ×2 (08:26→21:11)
[2022-02-27] MEDS: INSULIN ASPART 300 UNIT/3 ML PEN SUBQ SCH ×7 (08:31→21:12)
[2022-02-27] MEDS: VANCOMYCIN INJ 1 GM in SODIUM CHLORIDE 0.9% 250 ML IV SCH ×2 (09:06→19:42)
[2022-02-27] MEDS: MULTIVITAMIN W/MINERALS TABLET PO SCH (09:08)
[2022-02-27] MEDS: ENOXAPARIN 40 MG/0.4 ML SYRINGE SUBQ SCH (09:08)
[2022-02-27] MEDS: LACTOBACILLUS RHAMNOSUS GG CAPSULE PO SCH (09:08)
[2022-02-27 13:14] LABS: CALCIUM 8.6 mg/dL (8.5-10.3); CREATININE 1.3 mg/dL (0.4-1.0); POTASSIUM 3.6 mmol/L (3.5-5.0)
[2022-02-27] MEDS: ACETAMINOPHEN 325 MG TABLET PO PRN (16:34)
[2022-02-27] MEDS ORDERED: INSULIN GLARGINE 300 UNIT/3 ML PEN SUBQ SCH (21:00)
[2022-02-27] MEDS: OLANZapine ODT 5 MG TABLET TL SCH (21:13)
[2022-02-28 05:52] LABS: BASOPHILS % (AUTO) 0.4 %; EOSINOPHILS % (AUTO) 3.1 %; HCT - HEMATOCRIT 32.4 % (37.0-47.0); HGB - HEMOGLOBIN 10.5 g/dL (12.0-16.0); LYMPHOCYTES % (AUTO) 14.3 %; MEAN CORPUSCULAR HEMOGLOBIN 27.7 pg (27.0-31.0); MEAN CORPUSCULAR HGB CONC 32.4 g/dL (32.0-36.0); MEAN CORPUSCULAR VOLUME 85.5 fL (81.0-99.0); MEAN PLATELET VOLUME 9.8 fL (7.9-10.8); NEUTROPHILS % (AUTO) 71.6 %; PLT - PLATELET COUNT 361 10^3/uL (130-450); RED BLOOD COUNT 3.79 10^6/uL (4.20-5.40); RED CELL DISTRIBUTION WIDTH 12.7 % (12.0-15.0); WHITE BLOOD COUNT 16.1 x10^3/uL (4.8-10.8)
[2022-02-28 06:25] LABS: ABNORMAL LYMPHS % (MANUAL) 0 %
[2022-02-28 06:28] LABS: CALCIUM 8.7 mg/dL (8.5-10.3); CREATININE 1.1 mg/dL (0.4-1.0); CRP - C-REACTIVE PROTEIN 22.7 mg/dL (0-1.0); POTASSIUM 3.9 mmol/L (3.5-5.0)
[2022-02-28 06:42] LABS: BAND NEUTROPHILS % (MANUAL) 8 %; DIFFERENTIAL COMMENT MANUAL DIFFERENTIAL; EOSINOPHILS # (MANUAL) 0.2 10^3/uL (0-0.7); LYMPHOCYTES # (MANUAL) 2.3 10^3/uL (1.5-3.5); LYMPHOCYTES % (MANUAL) 14 %; MONOCYTES # (MANUAL) 1.1 10^3/uL (0.0-1.0); NEUTROPHILS # (MANUAL) 12.6 10^3/uL (1.5-6.6); PLATELET ESTIMATE, MANUAL NORMAL (130-450,000) (NORMAL); RBC MORPHOLOGY (MULTIPLE) NORMAL APPEARANCE (NORMAL)
--- NOTE | 2022-02-28 07:36 | PROVIDER PROGRESS NOTE ---
Subjective - Prog Note Date Prog Note Date: 02/28/22 - Subjective Subjective: She reports feeling much better. She is motivated to better control her diabetes and to quit smoking to help with her wound healing. She feels like she has more energy today. Current Medications - Current Medications Current Medications: Active Medications Acetaminophen (Acetaminophen 325 Mg Tablet) 650 mg PO Q4HR PRN PRN Reason: Pain 1 to 4, or Fever Last Admin: 02/27/22 16:34 Dose: 650 mg Enoxaparin Sodium (Enoxaparin 40 Mg/0.4 Ml Syringe) 40 mg SUBQ DAILY [facility] Last Admin: 02/28/22 09:20 Dose: 40 mg Cefepime HCl 2 gm/ Sodium (Chloride) 100 mls @ 200 mls/hr IV BID [facility] Last Infusion: 02/28/22 10:01 Dose: Infused Vancomycin HCl 1 gm/ Sodium (Chloride) 250 mls @ 167 mls/hr IV Q12H [facility] Last Admin: 02/28/22 10:24 Dose: 167 mls/hr Ibuprofen (Ibuprofen 600 Mg Tablet) 600 mg PO Q6HR PRN PRN Reason: PAIN 1-4 Last Admin: 02/28/22 10:28 Dose: 600 mg Insulin Aspart (Insulin Aspart 300 Unit/3 Ml Pen) 3 - 11 unit SUBQ 0800,1200,1700,2100 [facility]; Protocol Last Admin: 02/28/22 08:53 Dose: 5 unit Insulin Aspart (Insulin Aspart 300 Unit/3 Ml Pen) 10 unit SUBQ TIDWM [facility]; Protocol Last Admin: 02/28/22 08:55 Dose: 10 unit Insulin Glargine (Insulin Glargine 300 Unit/3 Ml Pen) 25 unit SUBQ QPM [facility] Last Admin: 02/27/22 21:12 Dose: 25 unit Lactobacillus Rhamnosus (Lactobacillus Rhamnosus Gg Capsule) 1 cap PO DAILY [facility] Last Admin: 02/28/22 09:20 Dose: 1 cap Multivitamins/Minerals (Multivitamin W/Minerals Tablet) 1 tab PO DAILYWM [facility] Last Admin: 02/28/22 08:55 Dose: 1 tab Nicotine (Nicotine 14 Mg Patch) 1 patch TOP DAILY PRN PRN Reason: Nicotine Craving Olanzapine (Olanzapine Odt 5 Mg Tablet) 20 mg TL QPM [facility] Last Admin: 02/27/22 21:13 Dose: 20 mg Ondansetron HCl (Ondansetron Odt 4 Mg Tablet) 4 mg TL Q6HR PRN PRN Reason: Nausea / Vomiting Ondansetron HCl (Ondansetron 4 Mg/2 Ml Vial) 4 mg IVP Q6HR PRN PRN Reason: Nausea / Vomiting Sodium Chloride (Sodium Chloride Flush 0.9% 10 Ml Syringe) 10 ml IVP PRN PRN PRN Reason: NEEDED PER PROVIDER ORDERS Sodium Chloride (Sodium Chloride Flush 0.9% 10 Ml Syringe) 10 ml IVP 0100,0900,1700 [facility] Last Admin: 02/28/22 09:20 Dose: 10 ml glipiZIDE [Glipizide] 10 mg PO DAILY 10/20/19 OLANZapine [Olanzapine] 20 mg PO QPM 02/06/20 Objective - Vital Signs/Intake & Output Reviewed Vital Signs: Yes Vital Signs: Vital Signs x48h Temp Pulse Resp BP Pulse Ox 02/28/22 05:20 37.4 C 98 18 147/73 H 92 Intake & Output: Intake & Output 02/25/22 02/26/22 02/27/22 02/28/22 23:59 23:59 23:59 23:59 Intake Total 2162 4450.000 2960 Output Total 1050 1100 Balance 1112 3350.000 2960 - Objective General Appearance: positive: No acute distress, Alert Eyes Bilateral: positive: Normal inspection, Conjunctivae nml ENT: positive: ENT inspection nml Neck: positive: Nml inspection Respiratory: positive: No respiratory distress. negative: Wheezes, Rales Cardiovascular: positive: Regular rate & rhythm, No murmur Skin: positive: Warm, Dry, Other (There is a bullae present still over the dorsum of the left foot and the second and third metatarsal. There is se rosanguineous drainage with occasional purulent drainage noted. The ulcer over the plantar surface has no erythema and no drainage.) Extremities: positive: Pedal edema (Trace edema in left lower extremity) - Lab Results Fish Bones: 02/28/22 04:58 02/28/22 04:58 Other Labs: Lab Results x24hrs 02/28/22 02/28/22 02/27/22 Range/Units 04:58 04:58 20:35 WBC 16.1 H (4.8-10.8) x10^3/uL RBC 3.79 L (4.20-5.40) 10^6/uL Hgb 10.5 L (12.0-16.0) g/dL Hct 32.4 L (37.0-47.0) % MCV 85.5 (81.0-99.0) fL MCH 27.7 (27.0-31.0) pg MCHC 32.4 (32.0-36.0) g/dL RDW 12.7 (12.0-15.0) % Plt Count 361 (130-450) 10^3/uL MPV 9.8 (7.9-10.8) fL Neut # (Auto) Not Reportable Lymph # (Auto) Not Reportable [place] # (Auto) Not Reportable Eos # (Auto) Not Reportable Baso # (Auto) Not Reportable Absolute Nucleated RBC Not Reportable Total Counted 100 Band Neuts % (Manual) 8 (0 - 10) % Abnorm Lymph % (Manual) 0 % Nucleated RBC % Not Reportable Neutrophils # (Manual) 12.6 H (1.5-6.6) 10^3/uL Lymphocytes # (Manual) 2.3 (1.5-3.5) 10^3/uL Monocytes # (Manual) 1.1 H (0.0-1.0) 10^3/uL Eosinophils # (Manual) 0.2 (0-0.7) 10^3/uL Basophils # (Manual) 0.0 (0-0.1) 10^3/uL Differential Comment MANUAL DIFFERENTIAL Platelet Estimate NORMAL (130-450,000) (NORMAL) RBC Morph Micro Appear NORMAL APPEARANCE (NORMAL) Sodium 138 (135-145) mmol/L Potassium 3.9 (3.5-5.0) mmol/L Chloride 104 (101-111) mmol/L Carbon Dioxide 25 (21-32) mmol/L Anion Gap 9.0 (6-13) BUN 21 H (6-20) mg/dL Creatinine 1.1 H (0.4-1.0) mg/dL Estimated GFR (MDRD) 53 L (>89) Glucose 197 H (70-100) mg/dL POC Whole Bld Glucose 123 H (70 - 100) mg/dL Calcium 8.7 (8.5-10.3) mg/dL C-Reactive Protein 22.7 H (0-1.0) mg/dL 02/27/22 02/27/22 02/27/22 Range/Units 16:33 12:58 11:11 WBC (4.8-10.8) x10^3/uL RBC (4.20-5.40) 10^6/uL Hgb (12.0-16.0) g/dL Hct (37.0-47.0) % MCV (81.0-99.0) fL MCH (27.0-31.0) pg MCHC (32.0-36.0) g/dL RDW (12.0-15.0) % Plt Count (130-450) 10^3/uL MPV (7.9-10.8) fL Neut # (Auto) Lymph # (Auto) [place] # (Auto) Eos # (Auto) Baso # (Auto) Absolute Nucleated RBC Total Counted Band Neuts % (Manual) (0 - 10) % Abnorm Lymph % (Manual) % Nucleated RBC % Neutrophils # (Manual) (1.5-6.6) 10^3/uL Lymphocytes # (Manual) (1.5-3.5) 10^3/uL Monocytes # (Manual) (0.0-1.0) 10^3/uL Eosinophils # (Manual) (0-0.7) 10^3/uL Basophils # (Manual) (0-0.1) 10^3/uL Differential Comment Platelet Estimate (NORMAL) RBC Morph Micro Appear (NORMAL) Sodium 136 (135-145) mmol/L Potassium 3.6 (3.5-5.0) mmol/L Chloride 103 (101-111) mmol/L Carbon Dioxide 24 (21-32) mmol/L Anion Gap 9.0 (6-13) BUN 26 H (6-20) mg/dL Creatinine 1.3 H (0.4-1.0) mg/dL Estimated GFR (MDRD) 44 L (>89) Glucose 278 H (70-100) mg/dL POC Whole Bld Glucose 176 H 299 H (70 - 100) mg/dL Calcium 8.6 (8.5-10.3) mg/dL C-Reactive Protein (0-1.0) mg/dL 02/27/22 Range/Units 07:40 WBC (4.8-10.8) x10^3/uL RBC (4.20-5.40) 10^6/uL Hgb (12.0-16.0) g/dL Hct (37.0-47.0) % MCV (81.0-99.0) fL MCH (27.0-31.0) pg MCHC (32.0-36.0) g/dL RDW (12.0-15.0) % Plt Count (130-450) 10^3/uL MPV (7.9-10.8) fL Neut # (Auto) Lymph # (Auto) [place] # (Auto) Eos # (Auto) Baso # (Auto) Absolute Nucleated RBC Total Counted Band Neuts % (Manual) (0 - 10) % Abnorm Lymph % (Manual) % Nucleated RBC % Neutrophils # (Manual) (1.5-6.6) 10^3/uL Lymphocytes # (Manual) (1.5-3.5) 10^3/uL Monocytes # (Manual) (0.0-1.0) 10^3/uL Eosinophils # (Manual) (0-0.7) 10^3/uL Basophils # (Manual) (0-0.1) 10^3/uL Differential Comment Platelet Estimate (NORMAL) RBC Morph Micro Appear (NORMAL) Sodium (135-145) mmol/L Potassium (3.5-5.0) mmol/L Chloride (101-111) mmol/L Carbon Dioxide (21-32) mmol/L Anion Gap (6-13) BUN (6-20) mg/dL Creatinine (0.4-1.0) mg/dL Estimated GFR (MDRD) (>89) Glucose (70-100) mg/dL POC Whole Bld Glucose 300 H (70 - 100) mg/dL Calcium (8.5-10.3) mg/dL C-Reactive Protein (0-1.0) mg/dL ABX Reporting Has patient been on IV antibiotics over the past 48 hours?: Yes Sepsis Event Note (H) - Evaluation Current Stage of Sepsis: Sepsis Possible source of Sepsis: positive: Skin/soft tissue - Sepsis Criteria Sepsis Criteria: Recorded Heart Rate greater than 90 bpm, Recorded Respiratory Rate greater than 20, WBC count greater than 12,000 or less than 4000 Assessment/Plan - Problem List (1) Sepsis Impression: Continues to improve from a sepsis perspective. Her white blood cell count is trending down but remains elevated at 16,000. She still has bands but this is also improved compared to yesterday. She has been afebrile. Repeat cultures are pending but clinically she is improving. If repeat blood cultures are negative then we will switch her to IV ceftriaxone tomorrow. Continue with daily CBC. Qualifiers: Sepsis type: sepsis due to unspecified organism Sepsis acute organ dysfunction status: without acute organ dysfunction Qualified Code(s): A41.9 - Sepsis, unspecified organism (2) Diabetic foot ulcer Impression: This appears to be slowly improving. We will keep her on vancomycin and cefepime today and switch to ceftriaxone in the morning given blood cultures grew strep group B. We will ask wound care to see her on Wednesday as she will ne ed close outpatient follow-up. We will continue with daily dressing changes. Continue with daily CBC and CRP. X-ray could not rule out early changes of osteomyelitis. Orthopedic surgery did not recommend MRI at this time. Qualifiers: Diabetic foot ulcer location: midfoot Diabetes mellitus type: type 2 Laterality: left Non-pressure ulcer stage: unspecified non-pressure ulcer stage Qualified Code(s): E11.621 - Type 2 diabetes mellitus with foot ulcer; L97.429 - Non-pressure chronic ulcer of left heel and midfoot with unspecified severity (3) Bacteremia due to Streptococcus Impression: Initial blood cultures have grown strep group B. Repeat cultures are pending. Clinically she is improving as she has been afebrile with improving white blood cell count and CRP. Sensitivities have shown this is sensitive to ceftriaxone. We will look to switch her to IV ceftriaxone tomorrow as long as repeat blood cultures are negative. We will attempt to place a PICC line on Wednesday. She will need an echocardiogram prior to discharge and the earliest this can be done is Wednesday. She will also need at least 2 weeks of IV antibiotics. (4) Acute kidney injury Impression: This is ongoing but improving. Her creatinine today is 1.1 compared to 1.4 yesterday. Suspect this is likely related to the vancomycin as her trough was elevated at nearly 30. IV fluids have been discontinued. We will repeat labs in the morning. (5) Hyperglycemia due to type 2 diabetes mellitus Impression: Her blood glucose is much better controlled and is now less than 200. We will see how she does on the current insulin regimen with Lantus 25 units in the evening and 10 units of NovoLog with meals. We will look to titrate this as long as there are no episodes of hypoglycemia. Continue carb controlled diet. Qualifiers: Diabetes mellitus terminal operations manager insulin use: without terminal operations manager use Qualified Code(s): E11.65 - Type 2 diabetes mellitus with hyperglycemia (6) Schizoaffective disorder Impression: Continue olanzapine. (7) Hyponatremia Impression: This is resolved.
[2022-02-28] MEDS: INSULIN ASPART 300 UNIT/3 ML PEN SUBQ SCH ×7 (08:53→21:24)
[2022-02-28] MEDS: MULTIVITAMIN W/MINERALS TABLET PO SCH (08:55)
[2022-02-28] MEDS: CEFEPIME 2 GM in SODIUM CHLORIDE 0.9% MINIBAG 100 ML IV SCH ×2 (09:20→21:14)
[2022-02-28] MEDS: ENOXAPARIN 40 MG/0.4 ML SYRINGE SUBQ SCH (09:20)
[2022-02-28] MEDS: LACTOBACILLUS RHAMNOSUS GG CAPSULE PO SCH (09:20)
[2022-02-28] MEDS: SODIUM CHLORIDE FLUSH 0.9% 10 ML SYRINGE IVP SCH ×3 (09:20→21:19)
[2022-02-28] MEDS: VANCOMYCIN INJ 1 GM in SODIUM CHLORIDE 0.9% 250 ML IV SCH ×3 (10:24→23:54)
[2022-02-28] MEDS: IBUPROFEN 600 MG TABLET PO PRN ×2 (10:28→18:43)
[2022-02-28] MEDS ORDERED: INSULIN GLARGINE 300 UNIT/3 ML PEN SUBQ SCH (21:00)
[2022-02-28] MEDS: OLANZapine ODT 5 MG TABLET TL SCH (21:25)
[2022-02-28] MEDS: ACETAMINOPHEN 325 MG TABLET PO PRN (23:54)
[2022-03-01 05:48] LABS: BASOPHILS # (AUTO) 0.1 10^3/uL (0.0-0.1); BASOPHILS % (AUTO) 0.7 %; EOSINOPHILS % (AUTO) 7.7 %; HCT - HEMATOCRIT 30.6 % (37.0-47.0); HGB - HEMOGLOBIN 9.7 g/dL (12.0-16.0); LYMPHOCYTES # (AUTO) 2.5 10^3/uL (1.5-3.5); LYMPHOCYTES % (AUTO) 19.4 %; MEAN CORPUSCULAR HEMOGLOBIN 27.6 pg (27.0-31.0); MEAN CORPUSCULAR HGB CONC 31.7 g/dL (32.0-36.0); MEAN CORPUSCULAR VOLUME 86.9 fL (81.0-99.0); MEAN PLATELET VOLUME 9.3 fL (7.9-10.8); MONOCYTES # (AUTO) 1.3 10^3/uL (0.0-1.0); MONOCYTES % (AUTO) 10.5 %; NEUTROPHILS # (AUTO) 7.8 10^3/uL (1.5-6.6); NEUTROPHILS % (AUTO) 60.8 %; PLT - PLATELET COUNT 352 10^3/uL (130-450); RED BLOOD COUNT 3.52 10^6/uL (4.20-5.40); RED CELL DISTRIBUTION WIDTH 12.9 % (12.0-15.0); WHITE BLOOD COUNT 12.8 x10^3/uL (4.8-10.8)
[2022-03-01 06:08] LABS: CALCIUM 8.7 mg/dL (8.5-10.3); CREATININE 1.1 mg/dL (0.4-1.0); CRP - C-REACTIVE PROTEIN 19.7 mg/dL (0-1.0); POTASSIUM 3.6 mmol/L (3.5-5.0)
--- NOTE | 2022-03-01 07:17 | PROVIDER PROGRESS NOTE ---
Subjective - Prog Note Date Prog Note Date: 03/01/22 - Subjective Subjective: She reports feeling well. Her only complaint is left leg edema. No dyspnea. Current Medications - Current Medications Current Medications: Active Medications Acetaminophen (Acetaminophen 325 Mg Tablet) 650 mg PO Q4HR PRN PRN Reason: Pain 1 to 4, or Fever Last Admin: 02/28/22 23:54 Dose: 650 mg Enoxaparin Sodium (Enoxaparin 40 Mg/0.4 Ml Syringe) 40 mg SUBQ DAILY [facility] Last Admin: 02/28/22 09:20 Dose: 40 mg Ceftriaxone Sodium 2 gm/ (Sodium Chloride) 100 mls @ 200 mls/hr IV DAILY [facility]UREN Ibuprofen (Ibuprofen 600 Mg Tablet) 600 mg PO Q6HR PRN PRN Reason: PAIN 1-4 Last Admin: 03/01/22 08:09 Dose: 600 mg Insulin Aspart (Insulin Aspart 300 Unit/3 Ml Pen) 3 - 11 unit SUBQ 0800,1200,1700,2100 [facility]; Protocol Last Admin: 03/01/22 08:08 Dose: Not Given Insulin Aspart (Insulin Aspart 300 Unit/3 Ml Pen) 10 unit SUBQ TIDWM [facility]; Protocol Last Admin: 03/01/22 08:07 Dose: 10 unit Insulin Glargine (Insulin Glargine 300 Unit/3 Ml Pen) 28 unit SUBQ QPM [facility]UREN Lactobacillus Rhamnosus (Lactobacillus Rhamnosus Gg Capsule) 1 cap PO DAILY [facility] Last Admin: 02/28/22 09:20 Dose: 1 cap Multivitamins/Minerals (Multivitamin W/Minerals Tablet) 1 tab PO DAILYWM [facility] Last Admin: 03/01/22 08:07 Dose: 1 tab Nicotine (Nicotine 14 Mg Patch) 1 patch TOP DAILY PRN PRN Reason: Nicotine Craving Olanzapine (Olanzapine Odt 5 Mg Tablet) 20 mg TL QPM [facility] Last Admin: 02/28/22 21:25 Dose: 20 mg Ondansetron HCl (Ondansetron Odt 4 Mg Tablet) 4 mg TL Q6HR PRN PRN Reason: Nausea / Vomiting Ondansetron HCl (Ondansetron 4 Mg/2 Ml Vial) 4 mg IVP Q6HR PRN PRN Reason: Nausea / Vomiting Sodium Chloride (Sodium Chloride Flush 0.9% 10 Ml Syringe) 10 ml IVP PRN PRN PRN Reason: NEEDED PER PROVIDER ORDERS Sodium Chloride (Sodium Chloride Flush 0.9% 10 Ml Syringe) 10 ml IVP 0100,0900,1700 [facility] Last Admin: 02/28/22 21:19 Dose: 10 ml glipiZIDE [Glipizide] 10 mg PO DAILY 10/20/19 OLANZapine [Olanzapine] 20 mg PO QPM 02/06/20 Objective - Vital Signs/Intake & Output Reviewed Vital Signs: Yes Vital Signs: Vital Signs x48h Temp Pulse Resp BP BP Pulse Ox 03/01/22 06:08 36.5 C 78 16 117/74 93 03/01/22 00:01 36.7 C 83 18 124/61 91 L Intake & Output: Intake & Output 02/26/22 02/27/22 02/28/22 03/01/22 23:59 23:59 23:59 23:59 Intake Total 4450.000 2960 1718.45 500 Output Total 1100 Balance 3350.000 2960 1718.45 500 - Objective General Appearance: positive: No acute distress, Alert Eyes Bilateral: positive: Normal inspection, Conjunctivae nml ENT: positive: ENT inspection nml Neck: positive: Nml inspection Respiratory: positive: No respiratory distress. negative: Wheezes, Rales Cardiovascular: negative: Regular rate & rhythm, Tachycardia Skin: positive: Warm, Dry, Other (The blister over the dorsum of the foot no longer there. There is still purulent and serosanguineous drainage from imaging the second and third metatarsal. There is still surrounding the scar. Minimal erythema.) Extremities: positive: Pedal edema (+1 edema in left lower extremity.) Neurologic/Psychiatric: negative: Disoriented to person, Disoriented to place - Lab Results Fish Bones: 03/01/22 05:20 03/01/22 05:20 Other Labs: Lab Results x24hrs 03/01/22 03/01/22 02/28/22 Range/Units 05:20 05:20 20:35 WBC 12.8 H (4.8-10.8) x10^3/uL RBC 3.52 L (4.20-5.40) 10^6/uL Hgb 9.7 L (12.0-16.0) g/dL Hct 30.6 L (37.0-47.0) % MCV 86.9 (81.0-99.0) fL MCH 27.6 (27.0-31.0) pg MCHC 31.7 L (32.0-36.0) g/dL RDW 12.9 (12.0-15.0) % Plt Count 352 (130-450) 10^3/uL MPV 9.3 (7.9-10.8) fL Neut # (Auto) 7.8 H (1.5-6.6) 10^3/uL Lymph # (Auto) 2.5 (1.5-3.5) 10^3/uL [place] # (Auto) 1.3 H (0.0-1.0) 10^3/uL Eos # (Auto) 1.0 H (0.0-0.7) 10^3/uL Baso # (Auto) 0.1 (0.0-0.1) 10^3/uL Absolute Nucleated RBC 0.00 x10^3/uL Nucleated RBC % 0.0 /100WBC Sodium 140 (135-145) mmol/L Potassium 3.6 (3.5-5.0) mmol/L Chloride 108 (101-111) mmol/L Carbon Dioxide 25 (21-32) mmol/L Anion Gap 7.0 (6-13) BUN 27 H (6-20) mg/dL Creatinine 1.1 H (0.4-1.0) mg/dL Estimated GFR (MDRD) 53 L (>89) Glucose 105 H (70-100) mg/dL POC Whole Bld Glucose 197 H (70 - 100) mg/dL Calcium 8.7 (8.5-10.3) mg/dL C-Reactive Protein 19.7 H (0-1.0) mg/dL 02/28/22 02/28/22 02/28/22 Range/Units 16:34 11:48 07:36 WBC (4.8-10.8) x10^3/uL RBC (4.20-5.40) 10^6/uL Hgb (12.0-16.0) g/dL Hct (37.0-47.0) % MCV (81.0-99.0) fL MCH (27.0-31.0) pg MCHC (32.0-36.0) g/dL RDW (12.0-15.0) % Plt Count (130-450) 10^3/uL MPV (7.9-10.8) fL Neut # (Auto) (1.5-6.6) 10^3/uL Lymph # (Auto) (1.5-3.5) 10^3/uL [place] # (Auto) (0.0-1.0) 10^3/uL Eos # (Auto) (0.0-0.7) 10^3/uL Baso # (Auto) (0.0-0.1) 10^3/uL Absolute Nucleated RBC x10^3/uL Nucleated RBC % /100WBC Sodium (135-145) mmol/L Potassium (3.5-5.0) mmol/L Chloride (101-111) mmol/L Carbon Dioxide (21-32) mmol/L Anion Gap (6-13) BUN (6-20) mg/dL Creatinine (0.4-1.0) mg/dL Estimated GFR (MDRD) (>89) Glucose (70-100) mg/dL POC Whole Bld Glucose 178 H 192 H 195 H (70 - 100) mg/dL Calcium (8.5-10.3) mg/dL C-Reactive Protein (0-1.0) mg/dL ABX Reporting Has patient been on IV antibiotics over the past 48 hours?: Yes Sepsis Event Note (H) - Evaluation Current Stage of Sepsis: Sepsis Possible source of Sepsis: positive: Skin/soft tissue - Sepsis Criteria Sepsis Criteria: Recorded Heart Rate greater than 90 bpm, Recorded Respiratory Rate greater than 20, WBC count greater than 12,000 or less than 4000 Assessment/Plan - Problem List (1) Sepsis Impression: This is now resolved. Repeat blood cultures are negative however the count continues to improve. She has had no fevers. Qualifiers: Sepsis type: sepsis due to unspecified organism Sepsis acute organ dysfunction status: without acute organ dysfunction Qualified Code(s): A41.9 - Sepsis, unspecified organism (2) Diabetic foot ulcer Impression: This is the cause of her sepsis. She she is slowly improving from a wound perspective. Her white blood cell count is decreasing as well as her CRP. We will dissipate antibiotics to ceftriaxone IV given blood cultures grew strep group B. We will ask wound care to see her tomorrow. We will also order duplex to evaluate left lower extremity edema although I suspect this is related to the infection in that extremity. Orthopedic surgery did not recommend MRI but we will discuss this again as x-ray was inconclusive for osteomyelitis and if she does have osteomyelitis then she would need at least 6 weeks of antibiotics. Qualifiers: Diabetic foot ulcer location: midfoot Diabetes mellitus type: type 2 Laterality: left Non-pressure ulcer stage: unspecified non-pressure ulcer stage Qualified Code(s): E11.621 - Type 2 diabetes mellitus with foot ulcer; L97.429 - Non-pressure chronic ulcer of left heel and midfoot with unspecified severity (3) Bacteremia due to Streptococcus Impression: Initial blood cultures grew strep group B. Repeat cultures have been negative to date. We will de-escalate antibiotics to ceftriaxone IV daily. We will get an echocardiogram on Wednesday to look for any possible vegetation. PICC line will be placed tomorrow. She will need at least 2 weeks of IV antibiotics but we may need to do MRI to ensure there is no evidence of osteomyelitis as then she would need 6 weeks of antibiotics. (4) Acute kidney injury Impression: This is ongoing but improving. Her creatinine remained stable at 1.1. It peaked at 1.4 we suspect her acute kidney injury was related to vancomycin as her trough was elevated. Vancomycin has since been discontinued and she is now on ceftriaxone. We will continue to monitor BMP. (5) Hyperglycemia due to type 2 diabetes mellitus Impression: Her blood glucose is much better controlled now we have increased her Lantus and place her on NovoLog with meals. Her blood glucose this morning was in the 90s she will cut back on Lantus 28 units in the evening and continue with 10 units of NovoLog with meals. Continue carb controlled diet. She is motivated to improve her blood glucose control and she will be discharged on insulin. Qualifiers: Diabetes mellitus fdc insulin use: without fdc use Qualified Code(s): E11.65 - Type 2 diabetes mellitus with hyperglycemia (6) Schizoaffective disorder Impression: We are continuing her home olanzapine. (7) Hyponatremia Impression: This is resolved.
[2022-03-01] MEDS: INSULIN ASPART 300 UNIT/3 ML PEN SUBQ SCH ×7 (08:07→20:59)
[2022-03-01] MEDS: MULTIVITAMIN W/MINERALS TABLET PO SCH (08:07)
[2022-03-01] MEDS: IBUPROFEN 600 MG TABLET PO PRN ×2 (08:09→15:37)
[2022-03-01] MEDS: ENOXAPARIN 40 MG/0.4 ML SYRINGE SUBQ SCH (08:42)
[2022-03-01] MEDS: cefTRIAXone 2 GM in SODIUM CHLORIDE 0.9% MINIBAG 100 ML IV SCH (08:42)
[2022-03-01] MEDS: LACTOBACILLUS RHAMNOSUS GG CAPSULE PO SCH (08:45)
[2022-03-01] MEDS: SODIUM CHLORIDE FLUSH 0.9% 10 ML SYRINGE IVP SCH ×2 (08:45→16:48)
--- NOTE | 2022-03-01 20:35 | Ultrasound Report ---
PROCEDURE: Duplex Ext Veins Left INDICATIONS: Edema. TECHNIQUE: Real-time imaging, as well as color and pulse Doppler interrogation, were performed of the lower extr emity deep veins from the inguinal ligament to the popliteal fossa. COMPARISON: None. FINDINGS: The deep veins are normally compressible, and free of intraluminal thrombus. Color and pu lse Doppler demonstrate normal phasic intraluminal flow. There is normal augmentation response to di stal compression maneuver. There are enlarged left inguinal lymph nodes measuring up to 1.9 cm in short axis with preserved fatt y bobo. IMPRESSION: 1. No evidence of deep venous thrombosis in the left lower extremity. 2. Enlarged left inguinal lymph nodes with preserved fatty bobo. The findings are nonspecific and may be reactive given history of foot ulcer but clinical follow-up is recommended to demonstrate resolut ion as a neoplastic process cannot be excluded. Reviewed by: Ishmael Matias MD on 03/01/2022 8:33 PM PDT Approved by: Ishmael Matias MD on 03/01/2022 8:33 PM PDT Station ID: [id number]
[2022-03-01] MEDS: OLANZapine ODT 5 MG TABLET TL SCH (20:57)
[2022-03-01] MEDS: INSULIN GLARGINE 300 UNIT/3 ML PEN SUBQ SCH (20:58)
[2022-03-02] MEDS: SODIUM CHLORIDE FLUSH 0.9% 10 ML SYRINGE IVP SCH ×3 (00:10→17:28)
[2022-03-02 05:24] LABS: BASOPHILS % (AUTO) 0.7 %; EOSINOPHILS % (AUTO) 9.5 %; HCT - HEMATOCRIT 29.9 % (37.0-47.0); HGB - HEMOGLOBIN 9.8 g/dL (12.0-16.0); LYMPHOCYTES % (AUTO) 22.6 %; MEAN CORPUSCULAR HEMOGLOBIN 28.3 pg (27.0-31.0); MEAN CORPUSCULAR HGB CONC 32.8 g/dL (32.0-36.0); MEAN CORPUSCULAR VOLUME 86.4 fL (81.0-99.0); MEAN PLATELET VOLUME 9.4 fL (7.9-10.8); MONOCYTES % (AUTO) 9.8 %; PLT - PLATELET COUNT 387 10^3/uL (130-450); RED BLOOD COUNT 3.46 10^6/uL (4.20-5.40); WHITE BLOOD COUNT 12.2 x10^3/uL (4.8-10.8)
[2022-03-02 05:32] LABS: ABNORMAL LYMPHS % (MANUAL) 0 %; BAND NEUTROPHILS % (MANUAL) 0 %
[2022-03-02 05:44] LABS: BASOPHILS # (MANUAL) 0.1 10^3/uL (0-0.1); BASOPHILS % (MANUAL) 1 %; DIFFERENTIAL COMMENT MANUAL DIFFERENTIAL; EOSINOPHILS # (MANUAL) 1.6 10^3/uL (0-0.7); LYMPHOCYTES # (MANUAL) 3.4 10^3/uL (1.5-3.5); LYMPHOCYTES % (MANUAL) 28 %; MONOCYTES # (MANUAL) 0.7 10^3/uL (0.0-1.0); NEUTROPHILS # (MANUAL) 6.3 10^3/uL (1.5-6.6); PLATELET ESTIMATE, MANUAL NORMAL (130-450,000) (NORMAL); PLATELET MORPHOLOGY NORMAL APPEARANCE (NORMAL); RBC MORPHOLOGY (MULTIPLE) 1+ HYPOCHROMASIA (NORMAL); WBC MORPHOLOGY (MULTIPLE) NORMAL APPEARANCE (NORMAL)
[2022-03-02 05:45] LABS: CREATININE 1.2 mg/dL (0.4-1.0); CRP - C-REACTIVE PROTEIN 14.4 mg/dL (0-1.0); POTASSIUM 3.8 mmol/L (3.5-5.0)
--- NOTE | 2022-03-02 07:50 | PROVIDER PROGRESS NOTE ---
Subjective - Prog Note Date Prog Note Date: 03/02/22 - Subjective Subjective: She continues to report feeling well. She did not want the PICC line placed today as she was concerned when she heard it was a long catheter that goes towards the heart. We discussed what entails of the PICC line and why it is necessary. She is agreeable to it now but wants it tomorrow. Current Medications - Current Medications Current Medications: Active Medications Acetaminophen (Acetaminophen 325 Mg Tablet) 650 mg PO Q4HR PRN PRN Reason: Pain 1 to 4, or Fever Last Admin: 02/28/22 23:54 Dose: 650 mg Enoxaparin Sodium (Enoxaparin 40 Mg/0.4 Ml Syringe) 40 mg SUBQ DAILY LAUREN Last Admin: 03/02/22 08:32 Dose: 40 mg Ceftriaxone Sodium 2 gm/ (Sodium Chloride) 100 mls @ 200 mls/hr IV DAILY LAUREN Last Infusion: 03/02/22 09:21 Dose: Infused Ibuprofen (Ibuprofen 600 Mg Tablet) 600 mg PO Q6HR PRN PRN Reason: PAIN 1-4 Last Admin: 03/02/22 16:16 Dose: 600 mg Insulin Aspart (Insulin Aspart 300 Unit/3 Ml Pen) 3 - 11 unit SUBQ 0800,1200,1700,2100 LAUREN; Protocol Last Admin: 03/02/22 17:27 Dose: Not Given Insulin Aspart (Insulin Aspart 300 Unit/3 Ml Pen) 10 unit SUBQ TIDWM LAUREN; Prot ocol Last Admin: 03/02/22 17:27 Dose: 10 unit Insulin Glargine (Insulin Glargine 300 Unit/3 Ml Pen) 28 unit SUBQ QPM LAUREN Last Admin: 03/01/22 20:58 Dose: 28 unit Lactobacillus Rhamnosus (Lactobacillus Rhamnosus Gg Capsule) 1 cap PO DAILY LAUREN Last Admin: 03/02/22 08:31 Dose: 1 cap Multivitamins/Minerals (Multivitamin W/Minerals Tablet) 1 tab PO DAILYWM LAUREN Last Admin: 03/02/22 08:31 Dose: 1 tab Nicotine (Nicotine 14 Mg Patch) 1 patch TOP DAILY PRN PRN Reason: Nicotine Craving Olanzapine (Olanzapine Odt 5 Mg Tablet) 20 mg TL QPM LAUREN Last Admin: 03/01/22 20:57 Dose: 20 mg Ondansetron HCl (Ondansetron Odt 4 Mg Tablet) 4 mg TL Q6HR PRN PRN Reason: Nausea / Vomiting Ondansetron HCl (Ondansetron 4 Mg/2 Ml Vial) 4 mg IVP Q6HR PRN PRN Reason: Nausea / Vomiting Sodium Chloride (Sodium Chloride Flush 0.9% 10 Ml Syringe) 10 ml IVP PRN PRN PRN Reason: NEEDED PER PROVIDER ORDERS Sodium Chloride (Sodium Chloride Flush 0.9% 10 Ml Syringe) 10 ml IVP 0100,0900,1700 LAUREN Last Admin: 03/02/22 17:28 Dose: 10 ml glipiZIDE [Glipizide] 10 mg PO DAILY 10/20/19 OLANZapine [Olanzapine] 20 mg PO QPM 02/06/20 Objective - Vital Signs/Intake & Output Reviewed Vital Signs: Yes Vital Signs: Vital Signs x48h Temp Pulse Resp BP Pulse Ox 03/02/22 04:55 36.4 C L 74 18 122/67 94 Intake & Output: Intake & Output 02/27/22 02/28/22 03/01/22 03/02/22 23:59 23:59 23:59 23:59 Intake Total 2960 1718.45 1260 Balance 2960 1718.45 1260 - Objective General Appearance: positive: No acute distress, Alert, Mild distress ENT: positive: ENT inspection nml Respiratory: positive: No respiratory distress Cardiovascular: positive: Regular rate & rhythm Skin: positive: Warm, Dry, Other (The bullae is no longer present redness of the foot. There is still purulent drainage in between the second and third metatarsal. The ulceration over the plantar surface has no purulent drainage.) Extremities: positive: Pedal edema (+1 edema in left lower extremity.) Neurologic/Psychiatric: negative: Disoriented to person, Disoriented to place - Lab Results Fish Bones: 03/02/22 04:50 03/02/22 04:50 Other Labs: Lab Results x24hrs 03/02/22 03/02/22 03/02/22 Range/Units 04:50 04:50 04:50 WBC 12.2 H (4.8-10.8) x10^3/uL RBC 3.46 L (4.20-5.40) 10^6/uL Hgb 9.8 L (12.0-16.0) g/dL Hct 29.9 L (37.0-47.0) % MCV 86.4 (81.0-99.0) fL MCH 28.3 (27.0-31.0) pg MCHC 32.8 (32.0-36.0) g/dL RDW 13.0 (12.0-15.0) % Plt Count 387 (130-450) 10^3/uL MPV 9.4 (7.9-10.8) fL Neut # (Auto) Not Reportable Lymph # (Auto) Not Reportable [place] # (Auto) Not Reportable Eos # (Auto) Not Reportable Baso # (Auto) Not Reportable Absolute Nucleated RBC Not Reportable Total Counted 100 Band Neuts % (Manual) 0 (0 - 10) % Abnorm Lymph % (Manual) 0 % Nucleated RBC % Not Reportable Neutrophils # (Manual) 6.3 (1.5-6.6) 10^3/uL Lymphocytes # (Manual) 3.4 (1.5-3.5) 10^3/uL Monocytes # (Manual) 0.7 (0.0-1.0) 10^3/uL Eosinophils # (Manual) 1.6 H (0-0.7) 10^3/uL Basophils # (Manual) 0.1 (0-0.1) 10^3/uL Differential Comment MANUAL DIFFERENTIAL WBC Morphology NORMAL APPEARANCE (NORMAL) Platelet Estimate NORMAL (130-450,000) (NORMAL) Platelet Morphology NORMAL APPEARANCE (NORMAL) RBC Morph Micro Appear 1+ HYPOCHROMASIA (NORMAL) Sodium 141 (135-145) mmol/L Potassium 3.8 (3.5-5.0) mmol/L Chloride 106 (101-111) mmol/L Carbon Dioxide 25 (21-32) mmol/L Anion Gap 10.0 (6-13) BUN 34 H (6-20) mg/dL Creatinine 1.2 H (0.4-1.0) mg/dL Estimated GFR (MDRD) 48 L (>89) Glucose 130 H (70-100) mg/dL POC Whole Bld Glucose (70 - 100) mg/dL Calcium 9.0 (8.5-10.3) mg/dL Iron 21 L (28-170) ug/dL TIBC 251 (250-450) ug/dL % Saturation 8 L (20-50) % Transferrin 179 L (192-382) mg/dL Ferritin 147.3 (11.0-306.8) ng/mL C-Reactive Protein 14.4 H (0-1.0) mg/dL 03/01/22 03/01/22 03/01/22 Range/Units 20:42 16:39 11:13 WBC (4.8-10.8) x10^3/uL RBC (4.20-5.40) 10^6/uL Hgb (12.0-16.0) g/dL Hct (37.0-47.0) % MCV (81.0-99.0) fL MCH (27.0-31.0) pg MCHC (32.0-36.0) g/dL RDW (12.0-15.0) % Plt Count (130-450) 10^3/uL MPV (7.9-10.8) fL Neut # (Auto) Lymph # (Auto) [place] # (Auto) Eos # (Auto) Baso # (Auto) Absolute Nucleated RBC Total Counted Band Neuts % (Manual) (0 - 10) % Abnorm Lymph % (Manual) % Nucleated RBC % Neutrophils # (Manual) (1.5-6.6) 10^3/uL Lymphocytes # (Manual) (1.5-3.5) 10^3/uL Monocytes # (Manual) (0.0-1.0) 10^3/uL Eosinophils # (Manual) (0-0.7) 10^3/uL Basophils # (Manual) (0-0.1) 10^3/uL Differential Comment WBC Morphology (NORMAL) Platelet Estimate (NORMAL) Platelet Morphology (NORMAL) RBC Morph Micro Appear (NORMAL) Sodium (135-145) mmol/L Potassium (3.5-5.0) mmol/L Chloride (101-111) mmol/L Carbon Dioxide (21-32) mmol/L Anion Gap (6-13) BUN (6-20) mg/dL Creatinine (0.4-1.0) mg/dL Estimated GFR (MDRD) (>89) Glucose (70-100) mg/dL POC Whole Bld Glucose 185 H 128 H 91 (70 - 100) mg/dL Calcium (8.5-10.3) mg/dL Iron (28-170) ug/dL TIBC (250-450) ug/dL % Saturation (20-50) % Transferrin (192-382) mg/dL Ferritin (11.0-306.8) ng/mL C-Reactive Protein (0-1.0) mg/dL ABX Reporting Has patient been on IV antibiotics over the past 48 hours?: Yes Sepsis Event Note (H) - Evaluation Current Stage of Sepsis: Sepsis Possible source of Sepsis: positive: Skin/soft tissue - Sepsis Criteria Sepsis Criteria: Recorded Heart Rate greater than 90 bpm, Recorded Respiratory Rate greater than 20, WBC count greater than 12,000 or less than 4000 Assessment/Plan - Problem List (1) Sepsis Impression: This is now resolved. Repeat blood cultures are negative however the count continues to improve. She has had no fevers. Qualifiers: Sepsis type: sepsis due to unspecified organism Sepsis acute organ dysfunction status: without acute organ dysfunction Qualified Code(s): A41.9 - Sepsis, unspecified organism (2) Diabetic foot ulcer Impression: This is the cause of her sepsis. She she is slowly improving from a wound perspective. Her white blood cell count is decreasing as well as her CRP. We will continue ceftriaxone IV given blood cultures grew strep group B. Wound care has been consulted but have yet to see the patient. Duplex showed no evidence of DVT or arterial disease. We will likely obtain MRI of the foot oral to evaluate for osteomyelitis given x-ray was inconclusive as it would not loom changeover operator given she would need 6 weeks of IV antibiotics. Qualifiers: Diabetic foot ulcer location: midfoot Diabetes mellitus type: type 2 Laterality: left Non-pressure ulcer stage: unspecified non-pressure ulcer stage Qualified Code(s): E11.621 - Type 2 diabetes mellitus with foot ulcer; L97.429 - Non-pressure chronic ulcer of left heel and midfoot with unspecified severity (3) Bacteremia due to Streptococcus Impression: Initial blood cultures grew strep group B. Repeat cultures have been negative to date. We will de-escalate antibiotics to ceftriaxone IV daily. We will get an echocardiogram on Wednesday to look for any possible vegetation. PICC line will be placed tomorrow as patient declined this today. She will need at least 2 weeks of IV antibiotics but we may need to do MRI to ensure there is no evidence of osteomyelitis as then she would need 6 weeks of antibiotics. (4) Acute kidney injury Impression: This is stable. Her creatinine is still around 1.2. Her baseline 0.6. This was felt to be secondary to the vancomycin given she had an elevated trough. Vancomycin has been discontinued. We have held off on further IV hydration given her adequate oral intake but if her creatinine begins to rise we may need to consider IV fluids. (5) Hyperglycemia due to type 2 diabetes mellitus Impression: Her blood glucose has been well controlled on Lantus 28 units in the evening and 10 units of NovoLog with meals. We will continue this regimen on discharge. inclusion paraeducator has been consulted. Qualifiers: Diabetes mellitus ferry terminal supervisor insulin use: without ferry terminal supervisor use Qualified Code(s): E11.65 - Type 2 diabetes mellitus with hyperglycemia (6) Schizoaffective disorder Impression: Continue home olanzapine. (7) Inguinal lymphadenopathy Impression: She has left inguinal lymphadenopathy which I suspect is likely reactive due to the diabetic foot ulcer and infection in the left foot. She will need repeat imaging to ensure this resolves. (8) Hyponatremia Impression: This is resolved.
[2022-03-02] MEDS: INSULIN ASPART 300 UNIT/3 ML PEN SUBQ SCH ×7 (08:29→20:38)
[2022-03-02] MEDS: MULTIVITAMIN W/MINERALS TABLET PO SCH (08:31)
[2022-03-02] MEDS: LACTOBACILLUS RHAMNOSUS GG CAPSULE PO SCH (08:31)
[2022-03-02] MEDS: ENOXAPARIN 40 MG/0.4 ML SYRINGE SUBQ SCH (08:32)
[2022-03-02] MEDS: cefTRIAXone 2 GM in SODIUM CHLORIDE 0.9% MINIBAG 100 ML IV SCH (08:32)
[2022-03-02] MEDS: IBUPROFEN 600 MG TABLET PO PRN (16:16)
[2022-03-02] MEDS: OLANZapine ODT 5 MG TABLET TL SCH (20:38)
[2022-03-02] MEDS: INSULIN GLARGINE 300 UNIT/3 ML PEN SUBQ SCH (20:39)
[2022-03-03] MEDS: SODIUM CHLORIDE FLUSH 0.9% 10 ML SYRINGE IVP SCH ×3 (00:01→15:46)
[2022-03-03 04:25] LABS: BASOPHILS % (AUTO) 0.8 %; EOSINOPHILS % (AUTO) 8.3 %; HCT - HEMATOCRIT 33.2 % (37.0-47.0); HGB - HEMOGLOBIN 10.4 g/dL (12.0-16.0); LYMPHOCYTES % (AUTO) 25.6 %; MEAN CORPUSCULAR HEMOGLOBIN 27.7 pg (27.0-31.0); MEAN CORPUSCULAR HGB CONC 31.3 g/dL (32.0-36.0); MEAN CORPUSCULAR VOLUME 88.5 fL (81.0-99.0); MEAN PLATELET VOLUME 9.1 fL (7.9-10.8); MONOCYTES % (AUTO) 8.9 %; NEUTROPHILS % (AUTO) 54.1 %; PLT - PLATELET COUNT 447 10^3/uL (130-450); RED BLOOD COUNT 3.75 10^6/uL (4.20-5.40); RED CELL DISTRIBUTION WIDTH 12.8 % (12.0-15.0); WHITE BLOOD COUNT 12.8 x10^3/uL (4.8-10.8)
[2022-03-03 04:29] LABS: ABNORMAL LYMPHS % (MANUAL) 0 %; BAND NEUTROPHILS % (MANUAL) 0 %
[2022-03-03 04:38] LABS: EOSINOPHILS # (MANUAL) 0.9 10^3/uL (0-0.7); LYMPHOCYTES # (MANUAL) 2.8 10^3/uL (1.5-3.5); LYMPHOCYTES % (MANUAL) 22 %; MONOCYTES # (MANUAL) 1.4 10^3/uL (0.0-1.0); NEUTROPHILS # (MANUAL) 7.7 10^3/uL (1.5-6.6); RBC MORPHOLOGY (MULTIPLE) 1+ HYPOCHROMASIA (NORMAL)
[2022-03-03 04:39] LABS: DIFFERENTIAL COMMENT MANUAL DIFFERENTIAL; PLATELET ESTIMATE, MANUAL NORMAL (130-450,000) (NORMAL); PLATELET MORPHOLOGY NORMAL APPEARANCE (NORMAL); WBC MORPHOLOGY (MULTIPLE) NORMAL APPEARANCE (NORMAL)
[2022-03-03 04:40] LABS: CALCIUM 9.4 mg/dL (8.5-10.3); CREATININE 1.1 mg/dL (0.4-1.0); CRP - C-REACTIVE PROTEIN 10.2 mg/dL (0-1.0); POTASSIUM 3.8 mmol/L (3.5-5.0)
[2022-03-03] MEDS: INSULIN ASPART 300 UNIT/3 ML PEN SUBQ SCH ×7 (08:00→21:06)
[2022-03-03] MEDS: MULTIVITAMIN W/MINERALS TABLET PO SCH (08:04)
[2022-03-03] MEDS: LACTOBACILLUS RHAMNOSUS GG CAPSULE PO SCH (08:04)
[2022-03-03] MEDS: ENOXAPARIN 40 MG/0.4 ML SYRINGE SUBQ SCH (08:04)
[2022-03-03] MEDS: cefTRIAXone 2 GM in SODIUM CHLORIDE 0.9% MINIBAG 100 ML IV SCH (08:05)
--- NOTE | 2022-03-03 14:46 | XRAY Report ---
PROCEDURE: Chest for Line Placement INDICATIONS: LINE PLACEMENT COMMENTS: LINE PLACEMENT PRIORS: 10/01/12 TECHNIQUE: One view of the chest was acquired. COMPARISON: None FINDINGS: Surgical changes and devices: Right arm PICC line appears well-positioned. Lungs and pleura: No pleural effusions or pneumothorax. Patchy opacities in the lower lungs are l ikely atelectasis. No focal consolidation. Mediastinum: Mediastinal contours appear normal. Heart size is normal. Bones and chest wall: No suspicious bony lesions. Overlying soft tissues appear unremarkable. IMPRESSION: 1. Right arm PICC line appears well positioned with the tip in the SVC. 2. Patchy opacities in the right lower lung neumann are likely atelectasis. Reviewed by: León Gomez on 03/03/2022 2:45 PM PDT Approved by: León Gomez on 03/03/2022 2:45 PM PDT Station ID: [id number]
--- NOTE | 2022-03-03 14:49 | ANESTHESIA PROCEDURE NOTE ---
Anesth Central Line Template - Central Line Central Line Preparation: Consent Obtained, Time out completed, Ultrasound used, Sterile prep and drape Central line location: Right Basilic Central line type: PICC Double Lumen Central line catheter tip site resides: [place], right Central line aftercare: Secured, Placement confirmed, No pneumothorax, No complications, Bundle checklist complete, Pt tolerated well
--- NOTE | 2022-03-03 15:05 | CONSULTATION NOTE ---
Consultation Report: Consulted by Dr Angel to place PICC line. Informed consent obtained. R basilic 2-lumen PICC placed using US guidance by Scottie Perdomo CRNA. Sterile technique maintained. Attempt x2 unsuccessful by BILLIE Pryor. Pt tolerated well. NAC. Placement verified with tip in the SVC by port CXR, confirmed by radiologist
[2022-03-03] MEDS ORDERED: GADOBUTROL 7.5 MMOL/7.5 ML VIAL ONE (17:35)
--- NOTE | 2022-03-03 17:45 | PROVIDER PROGRESS NOTE ---
Assessment/Plan - Problem List (1) Sepsis Qualifiers: Sepsis type: sepsis due to unspecified organism Sepsis acute organ dysfunction status: without acute organ dysfunction Qualified Code(s): A41.9 - Sepsis, unspecified organism Assessment/Plan: This is now resolved. Repeat blood cultures are negative however the count continues to improve. She has had no fevers. Her vital signs are stable but her WBC has decreased only from 16th and remains at 12 for several days. Will work-up whether the infection is indeed osteomyelitis by finally getting an MRI today. The plan is for PICC line to be inserted today then IV antibiotics daily using ceftriaxone. The duration of treatment will be either 2 weeks or as long as 6 weeks total, if she has positive osteomyelitis findings by MRI scan. (2) Diabetic foot ulcer Qualifiers: Diabetic foot ulcer location: midfoot Diabetes mellitus type: type 2 Laterality: left Non-pressure ulcer stage: unspecified non-pressure ulcer stage Qualified Code(s): E11.621 - Type 2 diabetes mellitus with foot ulcer; L97.429 - Non-pressure chronic ulcer of left heel and midfoot with unspecified severity Assessment/Plan: This is the cause of her sepsis. She she is slowly improving from a wound perspective. Her white blood cell count is decreasing as well as her CRP, but not normal yet. Wound care has been consulted but have yet to see the patient, and are not at [facility] this entire week (per message). Duplex showed no evidence of DVT or arterial disease. We are getting an MRI of the foot to evaluate for osteomyelitis given x-ray was inconclusive, as it would change management expert from 2 weeks to 6 weeks of IV antibiotics. We will continue ceftriaxone IV given blood cultures grew strep group B. Qualifiers: Diabetic foot ulcer location: midfoot Diabetes mellitus type: type 2 Laterality: left Non-pressure ulcer stage: unspecified non-pressure ulcer stage Qualified Code(s): E11.621 - Type 2 diabetes mellitus with foot ulcer; L97.429 - Non-pressure chronic ulcer of left heel and midfoot with unspecified severity (3) Bacteremia due to Streptococcus Impression: Initial blood cultures grew strep group B. Repeat cultures done 2 days later have been negative to date. We have de-escalated antibiotics from empiric coverage to ceftriaxone IV daily. We are awaiting an Echocardiogram today to look for any vegetation. PICC line will be placed tomorrow as patient declined this today. She will need at least 2 weeks of IV antibiotics but we need to do MRI to ensure there is no evidence of osteomyelitis as then she would need 6 weeks of antibiotics. (4) Acute kidney injury Impression: This is stable. Her creatinine is still around 1.2. Her baseline 0.6. This was felt to be secondary to the vancomycin given she had an elevated trough. Vancomycin has been discontinued. We have held off on further IV hydration given her adequate oral intake but if her creatinine begins to rise we may need to consider IV fluids. (5) Hyperglycemia due to type 2 diabetes mellitus Impression: Her blood glucose has been well controlled on Lantus 28 units in the evening and 10 units of NovoLog with meals. We will decrease the mealtime Insulin to 8U, as per Intranet Specialist recommendations. single ending machine operator has been consulted. Qualifiers: Diabetes mellitus jail insulin use: without jail use Qualified Code(s): E11.65 - Type 2 diabetes mellitus with hyperglycemia (6) Schizoaffective disorder Impression: The patient was so anxious yesterday about getting a PICC line that she refused it, she said she would agree today>> and she did have her PICC line inserted. We are continuing with her usual psych med, olanzapine. (7) Inguinal lymphadenopathy Impression: She has left inguinal lymphadenopathy which I suspect is likely reactive due to the diabetic foot ulcer and infection in the left foot. She will need repeat imaging to ensure this resolves. (8) Hyponatremia Impression: This has resolved after iv hydration. - Current Meds Current Meds: Current Medications Generic Name Dose Route Start Last Admin Trade Name Freq PRN Reason Stop Dose Admin Acetaminophen 650 mg 02/25/22 16:52 02/28/22 23:54 Acetaminophen 325 Mg Tablet PO 650 mg Q4HR PRN Administration Pain 1 to 4, or Fever Enoxaparin Sodium 40 mg 02/26/22 09:00 03/03/22 08:04 Enoxaparin 40 Mg/0.4 Ml Syringe SUBQ 40 mg DAILY LAUREN Administration Ceftriaxone Sodium 2 gm/ 100 mls @ 200 mls/hr 03/01/22 09:00 03/03/22 16:16 Sodium Chloride IV Infused DAILY LAUREN Infusion Ibuprofen 600 mg 02/25/22 20:39 03/02/22 16:16 Ibuprofen 600 Mg Tablet PO 600 mg Q6HR PRN Administration PAIN 1-4 Insulin Aspart 8 unit 03/03/22 12:00 03/03/22 12:21 Insulin Aspart 300 Unit/3 Ml Pen SUBQ 8 unit TIDWM LAUREN Administration Protocol Insulin Aspart 1 - 9 unit 03/03/22 12:00 03/03/22 12:21 Insulin Aspart 300 Unit/3 Ml Pen SUBQ 1 unit 0800,1200,1700,2100 LAUREN Administration Protocol Insulin Glargine 28 unit 03/01/22 21:00 03/02/22 20:39 Insulin Glargine 300 Unit/3 Ml Pen SUBQ 28 unit QPM LAUREN Administration Lactobacillus Rhamnosus 1 cap 02/27/22 09:00 03/03/22 08:04 Lactobacillus Rhamnosus Gg Capsule PO 1 cap DAILY LAUREN Administration Multivitamins/Minerals 1 tab 02/26/22 15:00 03/03/22 08:04 Multivitamin W/Minerals Tablet PO 1 tab DAILYWM LAUREN Administration Olanzapine 20 mg 02/25/22 21:00 03/02/22 20:38 Olanzapine Odt 5 Mg Tablet TL 20 mg QPM LAUREN Administration Sodium Chloride 10 ml 02/25/22 17:00 03/03/22 15:46 Sodium Chloride Flush 0.9% 10 Ml Syringe IVP 10 ml 0100,0900,1700 LAUREN Administration - Lab Result Fish Bone Diagrams: 03/07/22 06:25 03/07/22 06:25 - Additional Planning My Orders: My Active Orders 03/03/22 12:00 Insulin Aspart [NovoLOG] 1 - 9 unit SUBQ 0800,1200,1700,2100 Insulin Aspart [NovoLOG] 8 unit SUBQ TIDWM Subjective - Subjective Patient Reports: Feeling Better, Resting Comfortably, Other (No pain in foot but has no sensation on plantar surfaces of feet) Objective Vital Signs: Vital Signs - 24 hr 03/03/22 03/03/22 03/03/22 00:08 07:25 15:58 Temperature 36.5 C 36.9 C 36.7 C Heart Rate [ 76 80 86 Brachial] Respiratory 18 18 19 Rate Blood Pressure 110/53 L [Left Brachial artery] Blood Pressure 141/77 H 138/72 H [Right Brachial artery] O2 Saturation 91 L 92 93 Oxygen O2 Source Room air I&O (Last 24 Hrs): Intake and Output Totals x24h 03/01/22 03/02/22 03/03/22 23:59 23:59 23:59 Intake Total 1260 1610 730 Balance 1260 1610 730 General: Alert, Oriented x3 HEENT: EOMI, Mucous membr. moist/pink Neck: Supple, No JVD Neuro: Alert, Other (No sensation bottom of feet) Cardiovascular: Regular rate, No murmurs Respiratory: No respiratory distress, Breath sounds nml Abdomen: Normal bowel sounds, Soft, No tenderness Extremities: No edema, Other (L foot and toes bandaged) - Results Results: Laboratory Results WBC 12.8 x10^3/uL (4.8-10.8) H 03/03/22 04:17 RBC 3.75 10^6/uL (4.20-5.40) L 03/03/22 04:17 Hgb 10.4 g/dL (12.0-16.0) L 03/03/22 04:17 Hct 33.2 % (37.0-47.0) L 03/03/22 04:17 MCV 88.5 fL (81.0-99.0) 03/03/22 04:17 MCH 27.7 pg (27.0-31.0) 03/03/22 04:17 MCHC 31.3 g/dL (32.0-36.0) L 03/03/22 04:17 RDW 12.8 % (12.0-15.0) 03/03/22 04:17 Plt Count 447 10^3/uL (130-450) 03/03/22 04:17 MPV 9.1 fL (7.9-10.8) 03/03/22 04:17 Neut # (Auto) Not Reportable 03/03/22 04:17 Lymph # (Auto) Not Reportable 03/03/22 04:17 [place] # (Auto) Not Reportable 03/03/22 04:17 Eos # (Auto) Not Reportable 03/03/22 04:17 Baso # (Auto) Not Reportable 03/03/22 04:17 Absolute Nucleated RBC Not Reportable 03/03/22 04:17 Total Counted 100 03/03/22 04:17 Band Neuts % (Manual) 0 % (0-10) 03/03/22 04:17 Abnorm Lymph % (Manual) 0 % 03/03/22 04:17 Nucleated RBC % Not Reportable 03/03/22 04:17 Neutrophils # (Manual) 7.7 10^3/uL (1.5-6.6) H 03/03/22 04:17 Lymphocytes # (Manual) 2.8 10^3/uL (1.5-3.5) 03/03/22 04:17 Monocytes # (Manual) 1.4 10^3/uL (0.0-1.0) H 03/03/22 04:17 Eosinophils # (Manual) 0.9 10^3/uL (0-0.7) H 03/03/22 04:17 Basophils # (Manual) 0.0 10^3/uL (0-0.1) 03/03/22 04:17 Differential Comment MANUAL DIFFERENTIAL 03/03/22 04:17 WBC Morphology NORMAL APPEARANCE (NORMAL) 03/03/22 04:17 Platelet Estimate NORMAL (130-450,000) (NORMAL) 03/03/22 04:17 Platelet Morphology NORMAL APPEARANCE (NORMAL) 03/03/22 04:17 RBC Morph Micro Appear 1+ HYPOCHROMASIA (NORMAL) 03/03/22 04:17 Sodium 145 mmol/L (135-145) 03/03/22 04:17 Potassium 3.8 mmol/L (3.5-5.0) 03/03/22 04:17 Chloride 106 mmol/L (101-111) 03/03/22 04:17 Carbon Dioxide 28 mmol/L (21-32) 03/03/22 04:17 Anion Gap 11.0 (6-13) 03/03/22 04:17 BUN 30 mg/dL (6-20) H 03/03/22 04:17 Creatinine 1.1 mg/dL (0.4-1.0) H 03/03/22 04:17 Estimated GFR (MDRD) 53 (>89) L 03/03/22 04:17 Glucose 102 mg/dL (70-100) H 03/03/22 04:17 POC Whole Bld Glucose 190 mg/dL (70 - 100) H 03/03/22 17:01 Estimat Average Glucose 332 mg/dL (70-100) H 02/25/22 15:56 Hemoglobin A1c % 13.2 % (4.27-6.07) H 02/25/22 15:56 Lactic Acid 1.3 mmol/L (0.5-2.2) 02/25/22 15:56 Calcium 9.4 mg/dL (8.5-10.3) 03/03/22 04:17 Iron 21 ug/dL (28-170) L 03/02/22 04:50 TIBC 251 ug/dL (250-450) 03/02/22 04:50 % Saturation 8 % (20-50) L 03/02/22 04:50 Transferrin 179 mg/dL (192-382) L 03/02/22 04:50 Ferritin 147.3 ng/mL (11.0-306.8) 03/02/22 04:50 Total Bilirubin 1.0 mg/dL (0.2-1.0) 02/25/22 15:56 AST 13 IU/L (10-42) 02/25/22 15:56 ALT 19 IU/L (10-60) 02/25/22 15:56 Alkaline Phosphatase 95 IU/L (42-121) 02/25/22 15:56 C-Reactive Protein 10.2 mg/dL (0-1.0) H 03/03/22 04:17 Total Protein 7.7 g/dL (6.7-8.2) 02/25/22 15:56 Albumin 3.1 g/dL (3.2-5.5) L 02/25/22 15:56 Globulin 4.6 g/dL (2.1-4.2) H 02/25/22 15:56 Albumin/Globulin Ratio 0.7 (1.0-2.2) L 02/25/22 15:56 Procalcitonin 1.67 ng/mL (<0.5) H 02/25/22 15:56 Urine Color YELLOW 02/25/22 19:17 Urine Clarity CLOUDY (CLEAR) 02/25/22 19:17 Urine pH 6.0 PH (5.0-7.5) 02/25/22 19:17 Ur Specific [place] 1.010 (1.002-1.030) 02/25/22 19:17 Urine Protein TRACE mg/dL (NEGATIVE) 02/25/22 19:17 Urine Glucose (UA) >=1000 mg/dL (NEGATIVE) H 02/25/22 19:17 Urine Ketones NEGATIVE mg/dL (NEGATIVE) 02/25/22 19:17 Urine Occult Blood TRACE-INTA (NEGATIVE) 02/25/22 19:17 Urine Nitrite NEGATIVE (NEGATIVE) 02/25/22 19:17 Urine Bilirubin NEGATIVE (NEGATIVE) 02/25/22 19:17 Urine Urobilinogen 0.2 (NORMAL) E.U./dL (NORMAL) 02/25/22 19:17 Ur Leukocyte Esterase SMALL (NEGATIVE) H 02/25/22 19:17 Urine RBC 0-5 /HPF (0-5) 02/25/22 19:17 Urine WBC 6-10 /HPF (0-5) H 02/25/22 19:17 Ur Squamous Epith Cells MANY Squamous (<= Few) H 02/25/22 19:17 Urine Bacteria Moderate /HPF (None Seen) H 02/25/22 19:17 Urine Culture Comments NOT INDICATED 02/25/22 19:17 Nasal Adenovirus (PCR) NOT DETECTED 02/25/22 16:50 Nasal B. parapertussis DNA (PCR) NOT DETECTED 02/25/22 16:50 Nasal Coronavir 229E PCR NOT DETECTED 02/25/22 16:50 Nasal Coronavir HKU1 PCR NOT DETECTED 02/25/22 16:50 Nasal Coronavir NL63 PCR NOT DETECTED 02/25/22 16:50 Nasal Coronavir OC43 PCR NOT DETECTED 02/25/22 16:50 Nasal Enterovir/Rhinovir PCR NOT DETECTED 02/25/22 16:50 Nasal Influenza B PCR NOT DETECTED 02/25/22 16:50 Nasal Influenza A PCR NOT DETECTED 02/25/22 16:50 Nasal Parainfluen 1 PCR NOT DETECTED 02/25/22 16:50 Nasal Parainfluen 2 PCR NOT DETECTED 02/25/22 16:50 Nasal Parainfluen 3 PCR NOT DETECTED 02/25/22 16:50 Nasal Parainfluen 4 PCR NOT DETECTED 02/25/22 16:50 Nasal RSV (PCR) NOT DETECTED 02/25/22 16:50 Nasal Screen MRSA (PCR) NEGATIVE (NEGATIVE) 02/26/22 09:50 Nasal B.pertussis DNA PCR NOT DETECTED 02/25/22 16:50 Nasal C.pneumoniae (PCR) NOT DETECTED 02/25/22 16:50 Calixto Human Metapneumo PCR NOT DETECTED 02/25/22 16:50 Nasal M.pneumoniae (PCR) NOT DETECTED 02/25/22 16:50 Nasal SARS-CoV-2 (PCR) NOT DETECTED 02/25/22 16:50 Vancomycin Trough 29.3 ug/mL (10.0-20.0) H* 02/26/22 16:00 Sepsis Event Note (H) - Evaluation Current Stage of Sepsis: Sepsis Possible source of Sepsis: positive: Skin/soft tissue - Sepsis Criteria Sepsis Criteria: Recorded Heart Rate greater than 90 bpm, Recorded Respiratory Rate greater than 20, WBC count greater than 12,000 or less than 4000
[2022-03-03] MEDS ORDERED: GADOBUTROL 7.5 MMOL/7.5 ML VIAL IVP ONE (17:57)
[2022-03-03] MEDS: INSULIN GLARGINE 300 UNIT/3 ML PEN SUBQ SCH (21:06)
[2022-03-03] MEDS: OLANZapine ODT 5 MG TABLET TL SCH (21:07)
[2022-03-04] MEDS: SODIUM CHLORIDE FLUSH 0.9% 10 ML SYRINGE IVP SCH ×4 (00:48→23:34)
[2022-03-04 05:25] LABS: BASOPHILS # (AUTO) 0.1 10^3/uL (0.0-0.1); BASOPHILS % (AUTO) 0.7 %; EOSINOPHILS # (AUTO) 0.8 10^3/uL (0.0-0.7); EOSINOPHILS % (AUTO) 5.6 %; HCT - HEMATOCRIT 30.4 % (37.0-47.0); HGB - HEMOGLOBIN 9.8 g/dL (12.0-16.0); LYMPHOCYTES # (AUTO) 3.7 10^3/uL (1.5-3.5); LYMPHOCYTES % (AUTO) 24.2 %; MEAN CORPUSCULAR HEMOGLOBIN 27.8 pg (27.0-31.0); MEAN CORPUSCULAR HGB CONC 32.2 g/dL (32.0-36.0); MEAN CORPUSCULAR VOLUME 86.4 fL (81.0-99.0); MEAN PLATELET VOLUME 9.1 fL (7.9-10.8); MONOCYTES # (AUTO) 1.5 10^3/uL (0.0-1.0); MONOCYTES % (AUTO) 9.6 %; NEUTROPHILS # (AUTO) 8.6 10^3/uL (1.5-6.6); NEUTROPHILS % (AUTO) 57.3 %; PLT - PLATELET COUNT 439 10^3/uL (130-450); RED BLOOD COUNT 3.52 10^6/uL (4.20-5.40); RED CELL DISTRIBUTION WIDTH 12.8 % (12.0-15.0); WHITE BLOOD COUNT 15.1 x10^3/uL (4.8-10.8)
[2022-03-04 05:42] LABS: CRP - C-REACTIVE PROTEIN 7.3 mg/dL (0-1.0); POTASSIUM 3.8 mmol/L (3.5-5.0)
[2022-03-04] MEDS: INSULIN ASPART 300 UNIT/3 ML PEN SUBQ SCH ×7 (08:39→21:00)
--- NOTE | 2022-03-04 08:43 | MRI Report ---
PROCEDURE: Foot LT W/WO INDICATIONS: SUSPECT OSTEOMYELITIS CONTRAST: IV CONTRAST: Gadavist ml: 7.2 TECHNIQUE: Noncontrast coronal T1 spin echo and STIR, sagittal T1 spin echo with fat saturation and STIR, axial T1 spin echo and T2 fast spin echo with fat saturation. After the administration of contrast, axial/ sagittal/coronal T1 spin echo with fat saturation through the left foot. COMPARISON: Lateral radiograph dated 02/25/2022. FINDINGS: Image quality: Excellent. Bones: There is extensive marrow edema throughout third proximal, middle and distal phalanges and jaleel w mild diffuse contrast enhancement. Mild edema involving adjacent third metatarsal head is also seen and shows subtle contrast enhancement. No other area of abnormal intraosseous enhancement is noted. Mild midfoot and forefoot joint osteoarthritic changes are seen more prominent at first MTP joint. No cortical erosion is seen. No metatarsal stress fractures. Soft tissues: There is full-thickness ulceration plantar soft tissue between second and third metatar maliha heads. Marked soft tissue swelling and edema throughout forefoot particularly surrounding third M TP joint is seen. There is an ill-defined peripherally enhancing T2 hyperintense and T1 hypointense a peggy within soft tissue over dorsal aspect of third and fourth MTP joints and extending to inner space between third and fourth metatarsal heads measures up to 1.9 x 2.3 x 3.3 cm in size series 10 image 16, series 11 image 9 and series 12 image 19 suggestive of soft tissue abscess collection. Mild edema involving the visualized plantar foot muscles are seen, no intramuscular fluid collection is noted. IMPRESSION: 1. Ulceration involving plantar aspect of forefoot at the level of second/third metatarsal head with marked forefoot cellulitis particularly over dorsal aspect of third and fourth metatarsal heads and M TP joints. There is suggestion of a 1.9 x 2.3 x 3.3 cm abscess collection within dorsal forefoot soft tissue as above. 2. Suggestion of extensive osteomyelitis involving third proximal, middle and distal phalanges as wel l as third metatarsal head. No definite bony erosion or destruction is seen. No pathologic fracture. 3. Suggestion of mild myositis involving plantar foot muscles. No intramuscular abscess collection. Reviewed by: Jonathon Espinoza MD on 03/04/2022 8:42 AM PDT Approved by: Jonathon Espinoza MD on 03/04/2022 8:42 AM PDT Station ID: [id number]
[2022-03-04] MEDS: ENOXAPARIN 40 MG/0.4 ML SYRINGE SUBQ SCH (09:37)
[2022-03-04] MEDS: LACTOBACILLUS RHAMNOSUS GG CAPSULE PO SCH (09:38)
[2022-03-04] MEDS: MULTIVITAMIN W/MINERALS TABLET PO SCH (09:38)
[2022-03-04] MEDS: cefTRIAXone 2 GM in SODIUM CHLORIDE 0.9% MINIBAG 100 ML IV SCH (09:38)
--- NOTE | 2022-03-04 11:45 | XRAY Report ---
PROCEDURE: Foot 2 View LT INDICATIONS: Cellulitis vs osteo TECHNIQUE: 2 views of the foot were acquired. COMPARISON: MRI left foot 03/03/2022. FINDINGS: Bones: No fractures or dislocations. No suspicious bony lesions. No osseous erosions. No periosteal reaction. Soft tissues: No tibiotalar joint effusion. Achilles tendon appears normal. Soft tissue swelling is noted. No soft tissue gas. IMPRESSION: No plain film evidence of osteomyelitis. Please note plain-film radiographs can be insensitive to rogelio nges of osteomyelitis in the initial 15 days of the disease. MRI obtained 03/03/2022 suggested osteomy elitis involving the third digit. Reviewed by: Shanna Mayo MD, PhD on 03/04/2022 11:44 AM PDT Approved by: Shanna Mayo MD, PhD on 03/04/2022 11:44 AM PDT Station ID: [id number]
[2022-03-04] MEDS ORDERED: AMPICILLIN/SULBACTAM 3 GM in SODIUM CHLORIDE 0.9% MINIBAG 100 ML IV SCH (12:00)
--- NOTE | 2022-03-04 12:01 | PROVIDER PROGRESS NOTE ---
Assessment/Plan - Problem List (1) Diabetic foot ulcer Qualifiers: Diabetic foot ulcer location: midfoot Diabetes mellitus type: type 2 Laterality: left Non-pressure ulcer stage: unspecified non-pressure ulcer stage Qualified Code(s): E11.621 - Type 2 diabetes mellitus with foot ulcer; L97.429 - Non-pressure chronic ulcer of left heel and midfoot with unspecified severity Assessment/Plan: Her WBC went from 16 to 12 and the WBC radha to 15. The foot MRI reports that she does have osteomyelitis. Dr Lott was contacted and asked to re-see her. His impression is that the wound is not draining from the bottom therefore not osteo, but the L foot and 3rd toe have worsened appearance on the dorsum, and that poss surgery is needed, and we will know in 2-3 more days. He will continue to see her daily now. He did open the fluctuant wound on the dorsum of the 3rd toe. Wound care has been consulted but no Wound personnel and are at [facility] this entire week. Because of the worsening WBC, we broadened the antibx from ceftriaxone IV to iv Vanco and iv Zosyn. We plan to call ID as well for their input. Duplex evaluations showed no evidence of DVT or of arterial disease of the L foot. Therefore the 3rd toe is still viable, except for the localized black area of the dorsum of 3rd toe. (2) Osteomyelitis Impression: Yesterday's foot MRI reported that she does have osteomyelitis, plus an abcsess and persistent cellulitis/myositis. Dr. Lott of Ortho came and reevaluated the patient. He states that there is probably no osteomyelitis, despite the reading on MRI, because by MRI osteo is usually over read, and because she has no drainage from the wound opening on the plantar aspect of the foot. He advises continued IV antibiotics, broaden coverage if necessary and watchful waiting. (3) Bacteremia due to Streptococcus Impression: Initial blood cultures grew strep group B. Repeat cultures done 2 days later have been negative to date. No wound culture was ever sent. Because of her white blood cell count improving initially, she was de-escalated to Ceftriaxone IV daily. Her WBC went from 16 to 12 and then WBC radha to 15, thus we have broadened her antibx She still has not had an Echo to look for any possible valve vegetation. PICC line was placed. She will need at least 2 weeks of IV antibiotics but possibly now 6 weeks, given the read-out of osteomyelitis on MRI done yesterday. ID will be contacted to discuss her management (4) Acute kidney injury Impression: This is stable. Her baseline creat 0.6. This was felt to be secondary to the vancomycin given she had an elevated trough. Vancomycin was discontinued. We have held off on further IV hydration given her adequate oral intake but if her creatinine begins to rise we may need to consider IV fluids. (5) Hyperglycemia due to type 2 diabetes mellitus Impression: She reported poor glucose control at the time of admission. Her blood glucose has been well controlled here, afyter antibx were started and on Lantus 28 units in the evening and 8 units of NovoLog with meals. simulation educator has been consulted. Qualifiers: Diabetes mellitus tuber operator insulin use: without tuber operator use Qualified Code(s): E11.65 - Type 2 diabetes mellitus with hyperglycemia (6) Schizoaffective disorder Impression: The patient was so anxious about getting a PICC line that she refused it initially, and said she would agree to having it today. She did have her PICC line successfuly inserted. We are continuing with her usual psych med, olanzapine. (7) Inguinal lymphadenopathy Impression: She has left inguinal lymphadenopathy which we suspected is likely reactive due to the diabetic foot ulcer and infection in the left foot. She will need repeat imaging to ensure this resolves after the L foot/toe infection improves. (8) Hyponatremia Impression: This has resolved after iv hydration. (9) Sepsis Impression: Sepsis is now resolved. - Current Meds Current Meds: Current Medications Generic Name Dose Route Start Last Admin Trade Name Freq PRN Reason Stop Dose Admin Acetaminophen 650 mg 02/25/22 16:52 02/28/22 23:54 Acetaminophen 325 Mg Tablet PO 650 mg Q4HR PRN Administration Pain 1 to 4, or Fever Enoxaparin Sodium 40 mg 02/26/22 09:00 03/04/22 09:37 Enoxaparin 40 Mg/0.4 Ml Syringe SUBQ 40 mg DAILY LAUREN Administration Ibuprofen 600 mg 02/25/22 20:39 03/02/22 16:16 Ibuprofen 600 Mg Tablet PO 600 mg Q6HR PRN Administration PAIN 1-4 Insulin Aspart 8 unit 03/03/22 12:00 03/04/22 09:36 Insulin Aspart 300 Unit/3 Ml Pen SUBQ 8 unit TIDWM LAUREN Administration Protocol Insulin Aspart 1 - 9 unit 03/03/22 12:00 03/04/22 11:49 Insulin Aspart 300 Unit/3 Ml Pen SUBQ Not Given 0800,1200,1700,2100 [facility] Protocol Insulin Glargine 28 unit 03/01/22 21:00 03/03/22 21:06 Insulin Glargine 300 Unit/3 Ml Pen SUBQ 28 unit QPM LAUREN Administration Lactobacillus Rhamnosus 1 cap 02/27/22 09:00 03/04/22 09:38 Lactobacillus Rhamnosus Gg Capsule PO 1 cap DAILY LAUREN Administration Multivitamins/Minerals 1 tab 02/26/22 15:00 03/04/22 09:38 Multivitamin W/Minerals Tablet PO 1 tab DAILYWM LAUREN Administration Olanzapine 20 mg 02/25/22 21:00 03/03/22 21:07 Olanzapine Odt 5 Mg Tablet TL 20 mg QPM LAUREN Administration Sodium Chloride 10 ml 02/25/22 17:00 03/04/22 09:38 Sodium Chloride Flush 0.9% 10 Ml Syringe IVP 10 ml 0100,0900,1700 LAUREN Administration - Lab Result Fish Bone Diagrams: 03/07/22 06:25 03/07/22 06:25 - Additional Planning My Orders: My Active Orders 03/03/22 12:00 Insulin Aspart [NovoLOG] 1 - 9 unit SUBQ 0800,1200,1700,2100 Insulin Aspart [NovoLOG] 8 unit SUBQ TIDWM 03/04/22 Consult [Orthopedics Consult] [CONS] Routine 03/04/22 11:55 Vancomycin: Pharmacy To Dose [Vancomycin-Pharmacy To Dose] 1 each ONCE PRN 03/04/22 12:00 Piperacillin/Tazobactam [Zosyn] 3.375 gm Sodium Chloride 0.9% Minibag [Normal Saline 0.9% Minibag] 100 ml IV Q6H Subjective - Subjective Patient Reports: Resting Comfortably, Other (Feels tired and woozy and thinks it is from the "stronger antibiotics". No N/V/D, no syncope.) Objective Vital Signs: Vital Signs - 24 hr 03/03/22 03/04/22 03/04/22 15:58 00:50 08:56 Temperature 36.7 C 37.2 C 36.5 C Heart Rate [ 86 84 75 Brachial] Respiratory 19 16 16 Rate Blood Pressure 110/53 L 135/67 H 114/62 [Left Brachial artery] O2 Saturation 93 92 90 L 03/04/22 03/04/22 09:15 11:49 Temperature 36.7 C Heart Rate [ 82 Brachial] Respiratory 18 Rate Blood Pressure 107/55 L [Left Brachial artery] O2 Saturation 92 90 L Oxygen O2 Source Room air I&O (Last 24 Hrs): Intake and Output Totals x24h 03/02/22 03/03/22 03/04/22 23:59 23:59 23:59 Intake Total 1610 1520 340 Balance 1610 1520 340 General: Alert, Oriented x3, Other (She does look tired.) HEENT: Mucous membr. moist/pink Neuro: Alert, Non Focal, Other Cardiovascular: Regular rate Respiratory: No respiratory distress Abdomen: Soft Extremities: Other (L foot and toes bandaged.) - Results Results: Laboratory Results WBC 15.1 x10^3/uL (4.8-10.8) H 03/04/22 04:58 RBC 3.52 10^6/uL (4.20-5.40) L 03/04/22 04:58 Hgb 9.8 g/dL (12.0-16.0) L 03/04/22 04:58 Hct 30.4 % (37.0-47.0) L 03/04/22 04:58 MCV 86.4 fL (81.0-99.0) 03/04/22 04:58 MCH 27.8 pg (27.0-31.0) 03/04/22 04:58 MCHC 32.2 g/dL (32.0-36.0) 03/04/22 04:58 RDW 12.8 % (12.0-15.0) 03/04/22 04:58 Plt Count 439 10^3/uL (130-450) 03/04/22 04:58 MPV 9.1 fL (7.9-10.8) 03/04/22 04:58 Neut # (Auto) 8.6 10^3/uL (1.5-6.6) H 03/04/22 04:58 Lymph # (Auto) 3.7 10^3/uL (1.5-3.5) H 03/04/22 04:58 Wirt # (Auto) 1.5 10^3/uL (0.0-1.0) H 03/04/22 04:58 Eos # (Auto) 0.8 10^3/uL (0.0-0.7) H 03/04/22 04:58 Baso # (Auto) 0.1 10^3/uL (0.0-0.1) 03/04/22 04:58 Absolute Nucleated RBC 0.00 x10^3/uL 03/04/22 04:58 Total Counted 100 03/03/22 04:17 Band Neuts % (Manual) 0 % (0-10) 03/03/22 04:17 Abnorm Lymph % (Manual) 0 % 03/03/22 04:17 Nucleated RBC % 0.0 /100WBC 03/04/22 04:58 Neutrophils # (Manual) 7.7 10^3/uL (1.5-6.6) H 03/03/22 04:17 Lymphocytes # (Manual) 2.8 10^3/uL (1.5-3.5) 03/03/22 04:17 Monocytes # (Manual) 1.4 10^3/uL (0.0-1.0) H 03/03/22 04:17 Eosinophils # (Manual) 0.9 10^3/uL (0-0.7) H 03/03/22 04:17 Basophils # (Manual) 0.0 10^3/uL (0-0.1) 03/03/22 04:17 Differential Comment MANUAL DIFFERENTIAL 03/03/22 04:17 WBC Morphology NORMAL APPEARANCE (NORMAL) 03/03/22 04:17 Platelet Estimate NORMAL (130-450,000) (NORMAL) 03/03/22 04:17 Platelet Morphology NORMAL APPEARANCE (NORMAL) 03/03/22 04:17 RBC Morph Micro Appear 1+ HYPOCHROMASIA (NORMAL) 03/03/22 04:17 Sodium 137 mmol/L (135-145) 03/04/22 04:58 Potassium 3.8 mmol/L (3.5-5.0) 03/04/22 04:58 Chloride 99 mmol/L (101-111) L 03/04/22 04:58 Carbon Dioxide 29 mmol/L (21-32) 03/04/22 04:58 Anion Gap 9.0 (6-13) 03/04/22 04:58 BUN 29 mg/dL (6-20) H 03/04/22 04:58 Creatinine 1.0 mg/dL (0.4-1.0) 03/04/22 04:58 Estimated GFR (MDRD) 59 (>89) L 03/04/22 04:58 Glucose 117 mg/dL (70-100) H 03/04/22 04:58 POC Whole Bld Glucose 147 mg/dL (70 - 100) H 03/04/22 11:06 Estimat Average Glucose 332 mg/dL (70-100) H 02/25/22 15:56 Hemoglobin A1c % 13.2 % (4.27-6.07) H 02/25/22 15:56 Lactic Acid 1.3 mmol/L (0.5-2.2) 02/25/22 15:56 Calcium 9.0 mg/dL (8.5-10.3) 03/04/22 04:58 Iron 21 ug/dL (28-170) L 03/02/22 04:50 TIBC 251 ug/dL (250-450) 03/02/22 04:50 % Saturation 8 % (20-50) L 03/02/22 04:50 Transferrin 179 mg/dL (192-382) L 03/02/22 04:50 Ferritin 147.3 ng/mL (11.0-306.8) 03/02/22 04:50 Total Bilirubin 1.0 mg/dL (0.2-1.0) 02/25/22 15:56 AST 13 IU/L (10-42) 02/25/22 15:56 ALT 19 IU/L (10-60) 02/25/22 15:56 Alkaline Phosphatase 95 IU/L (42-121) 02/25/22 15:56 C-Reactive Protein 7.3 mg/dL (0-1.0) H 03/04/22 04:58 Total Protein 7.7 g/dL (6.7-8.2) 02/25/22 15:56 Albumin 3.1 g/dL (3.2-5.5) L 02/25/22 15:56 Globulin 4.6 g/dL (2.1-4.2) H 02/25/22 15:56 Albumin/Globulin Ratio 0.7 (1.0-2.2) L 02/25/22 15:56 Procalcitonin 1.67 ng/mL (<0.5) H 02/25/22 15:56 Urine Color YELLOW 02/25/22 19:17 Urine Clarity CLOUDY (CLEAR) 02/25/22 19:17 Urine pH 6.0 PH (5.0-7.5) 02/25/22 19:17 Ur Specific Diggs 1.010 (1.002-1.030) 02/25/22 19:17 Urine Protein TRACE mg/dL (NEGATIVE) 02/25/22 19:17 Urine Glucose (UA) >=1000 mg/dL (NEGATIVE) H 02/25/22 19:17 Urine Ketones NEGATIVE mg/dL (NEGATIVE) 02/25/22 19:17 Urine Occult Blood TRACE-INTA (NEGATIVE) 02/25/22 19:17 Urine Nitrite NEGATIVE (NEGATIVE) 02/25/22 19:17 Urine Bilirubin NEGATIVE (NEGATIVE) 02/25/22 19:17 Urine Urobilinogen 0.2 (NORMAL) E.U./dL (NORMAL) 02/25/22 19:17 Ur Leukocyte Esterase SMALL (NEGATIVE) H 02/25/22 19:17 Urine RBC 0-5 /HPF (0-5) 02/25/22 19:17 Urine WBC 6-10 /HPF (0-5) H 02/25/22 19:17 Ur Squamous Epith Cells MANY Squamous (<= Few) H 02/25/22 19:17 Urine Bacteria Moderate /HPF (None Seen) H 02/25/22 19:17 Urine Culture Comments NOT INDICATED 02/25/22 19:17 Nasal Adenovirus (PCR) NOT DETECTED 02/25/22 16:50 Nasal B. parapertussis DNA (PCR) NOT DETECTED 02/25/22 16:50 Nasal Coronavir 229E PCR NOT DETECTED 02/25/22 16:50 Nasal Coronavir HKU1 PCR NOT DETECTED 02/25/22 16:50 Nasal Coronavir NL63 PCR NOT DETECTED 02/25/22 16:50 Nasal Coronavir OC43 PCR NOT DETECTED 02/25/22 16:50 Nasal Enterovir/Rhinovir PCR NOT DETECTED 02/25/22 16:50 Nasal Influenza B PCR NOT DETECTED 02/25/22 16:50 Nasal Influenza A PCR NOT DETECTED 02/25/22 16:50 Nasal Parainfluen 1 PCR NOT DETECTED 02/25/22 16:50 Nasal Parainfluen 2 PCR NOT DETECTED 02/25/22 16:50 Nasal Parainfluen 3 PCR NOT DETECTED 02/25/22 16:50 Nasal Parainfluen 4 PCR NOT DETECTED 02/25/22 16:50 Nasal RSV (PCR) NOT DETECTED 02/25/22 16:50 Nasal Screen MRSA (PCR) NEGATIVE (NEGATIVE) 02/26/22 09:50 Nasal B.pertussis DNA PCR NOT DETECTED 02/25/22 16:50 Nasal C.pneumoniae (PCR) NOT DETECTED 02/25/22 16:50 Calixto Human Metapneumo PCR NOT DETECTED 02/25/22 16:50 Nasal M.pneumoniae (PCR) NOT DETECTED 02/25/22 16:50 Nasal SARS-CoV-2 (PCR) NOT DETECTED 02/25/22 16:50 Vancomycin Trough 29.3 ug/mL (10.0-20.0) H* 02/26/22 16:00 Sepsis Event Note (H) - Evaluation Current Stage of Sepsis: Sepsis Possible source of Sepsis: positive: Skin/soft tissue - Sepsis Criteria Sepsis Criteria: Recorded Heart Rate greater than 90 bpm, Recorded Respiratory Rate greater than 20, WBC count greater than 12,000 or less than 4000
[2022-03-04] MEDS: PIPERACILLIN/TAZOBACTAM 3.375 GM in SODIUM CHLORIDE 0.9% MINIBAG 100 ML IV SCH ×3 (12:12→23:32)
--- NOTE | 2022-03-04 12:13 | PROVIDER PROGRESS NOTE ---
Subjective - General Admit Date: 02/25/22 - Review of Systems General: positive: No symptoms All Other Systems: positive: Reviewed and negative - Other Other Information/Narrative: The patient reports that she is feeling better since treatment of infection to her left foot. She denies any pain. She denies fever or chills. Objective - Patient Data Vital Signs: Vital Signs x48h Temp Pulse Resp BP Pulse Ox 03/04/22 11:49 36.7 C 82 18 107/55 L 90 L 03/04/22 09:15 92 03/04/22 08:56 36.5 C 75 16 114/62 90 L Weight: Weight 03/02/22 03/03/22 03/04/22 23:59 23:59 23:59 Weight (kg) 71.5 kg Intake & Output: Intake and Output Totals x24h 03/02/22 03/03/22 03/04/22 23:59 23:59 23:59 Intake Total 1610 1520 340 Balance 1610 1520 340 - Lab Results Lab Results: 03/04/22 04:58 03/04/22 04:58 Other Lab Results: Lab Results x24hrs 03/04/22 03/04/22 03/04/22 Range/Units 11:06 07:44 04:58 WBC (4.8-10.8) x10^3/uL RBC (4.20-5.40) 10^6/uL Hgb (12.0-16.0) g/dL Hct (37.0-47.0) % MCV (81.0-99.0) fL MCH (27.0-31.0) pg MCHC (32.0-36.0) g/dL RDW (12.0-15.0) % Plt Count (130-450) 10^3/uL MPV (7.9-10.8) fL Neut # (Auto) (1.5-6.6) 10^3/uL Lymph # (Auto) (1.5-3.5) 10^3/uL Lander # (Auto) (0.0-1.0) 10^3/uL Eos # (Auto) (0.0-0.7) 10^3/uL Baso # (Auto) (0.0-0.1) 10^3/uL Absolute Nucleated RBC x10^3/uL Nucleated RBC % /100WBC Sodium 137 (135-145) mmol/L Potassium 3.8 (3.5-5.0) mmol/L Chloride 99 L (101-111) mmol/L Carbon Dioxide 29 (21-32) mmol/L Anion Gap 9.0 (6-13) BUN 29 H (6-20) mg/dL Creatinine 1.0 (0.4-1.0) mg/dL Estimated GFR (MDRD) 59 L (>89) Glucose 117 H (70-100) mg/dL POC Whole Bld Glucose 147 H 110 H (70 - 100) mg/dL Calcium 9.0 (8.5-10.3) mg/dL C-Reactive Protein 7.3 H (0-1.0) mg/dL 03/04/22 03/03/22 03/03/22 Range/Units 04:58 21:00 17:01 WBC 15.1 H (4.8-10.8) x10^3/uL RBC 3.52 L (4.20-5.40) 10^6/uL Hgb 9.8 L (12.0-16.0) g/dL Hct 30.4 L (37.0-47.0) % MCV 86.4 (81.0-99.0) fL MCH 27.8 (27.0-31.0) pg MCHC 32.2 (32.0-36.0) g/dL RDW 12.8 (12.0-15.0) % Plt Count 439 (130-450) 10^3/uL MPV 9.1 (7.9-10.8) fL Neut # (Auto) 8.6 H (1.5-6.6) 10^3/uL Lymph # (Auto) 3.7 H (1.5-3.5) 10^3/uL Lander # (Auto) 1.5 H (0.0-1.0) 10^3/uL Eos # (Auto) 0.8 H (0.0-0.7) 10^3/uL Baso # (Auto) 0.1 (0.0-0.1) 10^3/uL Absolute Nucleated RBC 0.00 x10^3/uL Nucleated RBC % 0.0 /100WBC Sodium (135-145) mmol/L Potassium (3.5-5.0) mmol/L Chloride (101-111) mmol/L Carbon Dioxide (21-32) mmol/L Anion Gap (6-13) BUN (6-20) mg/dL Creatinine (0.4-1.0) mg/dL Estimated GFR (MDRD) (>89) Glucose (70-100) mg/dL POC Whole Bld Glucose 135 H 190 H (70 - 100) mg/dL Calcium (8.5-10.3) mg/dL C-Reactive Protein (0-1.0) mg/dL - Imaging Results Radiology Imaging: negative: EMP read indepedently (X-ray of the left foot, portable, obtained at bedside was independently visualized. There is no lytic lesions or definite signs to suggest osteomyelitis or bone abnormality on routine radiographs left foot), Other (MRI scan reviewed and report reviewed as well. Findings are primarily soft tissue with possible bony involvement of the left third toe.) - Current Medications Current Medications: Current Medications Generic Name Dose Route Start Last Admin Trade Name Freq PRN Reason Stop Dose Admin Acetaminophen 650 mg 02/25/22 16:52 02/28/22 23:54 Acetaminophen 325 Mg Tablet PO 650 mg Q4HR PRN Administration Pain 1 to 4, or Fever Enoxaparin Sodium 40 mg 02/26/22 09:00 03/04/22 09:37 Enoxaparin 40 Mg/0.4 Ml Syringe SUBQ 40 mg DAILY LAUREN Administration Ibuprofen 600 mg 02/25/22 20:39 03/02/22 16:16 Ibuprofen 600 Mg Tablet PO 600 mg Q6HR PRN Administration PAIN 1-4 Insulin Aspart 8 unit 03/03/22 12:00 03/04/22 09:36 Insulin Aspart 300 Unit/3 Ml Pen SUBQ 8 unit TIDWM LAUREN Administration Protocol Insulin Aspart 1 - 9 unit 03/03/22 12:00 03/04/22 11:49 Insulin Aspart 300 Unit/3 Ml Pen SUBQ Not Given 0800,1200,1700,2100 [facility] Protocol Insulin Glargine 28 unit 03/01/22 21:00 03/03/22 21:06 Insulin Glargine 300 Unit/3 Ml Pen SUBQ 28 unit QPM LAUREN Administration Lactobacillus Rhamnosus 1 cap 02/27/22 09:00 03/04/22 09:38 Lactobacillus Rhamnosus Gg Capsule PO 1 cap DAILY LAUREN Administration Multivitamins/Minerals 1 tab 02/26/22 15:00 03/04/22 09:38 Multivitamin W/Minerals Tablet PO 1 tab DAILYWM LAUREN Administration Olanzapine 20 mg 02/25/22 21:00 03/03/22 21:07 Olanzapine Odt 5 Mg Tablet TL 20 mg QPM LAUREN Administration Sodium Chloride 10 ml 02/25/22 17:00 03/04/22 09:38 Sodium Chloride Flush 0.9% 10 Ml Syringe IVP 10 ml 0100,0900,1700 LAUREN Administration - Physical Exam General Appearance: positive: No acute distress Neurologic/Psychiatric: positive: Oriented x3 Comments/Other: The left foot was inspected. There is a decent increased swelling, minimal redness to left forefoot. This is an improvement since my initial consultation. And the ulceration over the plantar aspect of the forefoot, second metatarsal head is dry, clean, no drainage, no exposed bone. The swelling that is present is localized to the dorsum of the left foot over an area of about 4 to 5 cm proximal to the metatarsal phalangeal region of the left third toe. The left third toe shows 2 area of soft tissue breakdown. The most extensive area of soft tissue breach is over the distal half, dorsum of third toe with full- thickness necrosis. This was gently debrided without sign of any overt pus. There is a second wound over the third toe that is more proximal and this communicates with the dorsum of the foot; this was probed with a sterile cotton tip applicator with findings of bloody fluid, no pus. These findings are consistent with soft tissue infection involving third toe and dorsum of left foot. There is necrosis to a portion of the dorsum of the third toe, full- thickness. The left third toe is still viable as are the remaining adjacent toes. Impression/Plan - Problem List Problem List: Diabetic soft tissue infection, mainly cellulitis localized to third toe and dorsum left foot The areas of wound breakdown have been probed with sterile cotton-tipped applicator, 1/4 inch iodoform gauze was inserted in the proximal wound of the left third toe, Xeroform, bulky foot dressing applied. Since there is vascular compromise to a part of the left third toe, I did discuss the possibility of toe amputation in the future. There is a possibility with further antibiotic treatment and further time that the wounds could show revascularization to the areas of breakdown. I have discussed this with our hospitalist and she is going to change her antibiotics as well. This is primarily a soft tissue infection, I do not see any overt sign of osteomyelitis. The ulceration to the plantar aspect of the foot remained stable and without overt sign of infection. I will continue to follow with you.
[2022-03-04] MEDS ORDERED: VANCOMYCIN INJ 1 GM, VANCOMYCIN INJ 500 MG in SODIUM CHLORIDE 0.9% 500 ML IV SCH (13:00)
[2022-03-04] MEDS ORDERED: VANCOMYCIN INJ 1 GM, VANCOMYCIN INJ 500 MG in SODIUM CHLORIDE 0.9% 500 ML IV ONE (13:00)
--- NOTE | 2022-03-04 14:30 | PHARMACY PROGRESS NOTE ---
- Therapy Status Vancomycin regimen day #: 1 Therapy status: Awaiting steady state Basis for treatment: Empirical Treatment indication: Osteomyelitis (per attending, Dr Guy, report), abscess, cellulitis Trough goal: 15-20 - FABY Risk Risk level for Acute Kidney Injury: High Acute Kidney Injury risk factors: Piperacillin/Tozobactam, Duration >7 days, Goal trough >15, Diabetes, Sepsis - Monitoring and Recommendation Clinical response to treatment: I&O Previous 24 hours 03/02/22 03/03/22 03/04/22 23:59 23:59 23:59 Intake Total 1610 1520 620 Balance 1610 1520 620 Lab Results 03/04/22 03/03/22 03/02/22 04:58 04:17 04:50 BUN 29 H 30 H 34 H Creatinine 1.0 1.1 H 1.2 H Estimated GFR (MDRD) 59 L 53 L 48 L 03/01/22 02/28/22 02/27/22 05:20 04:58 12:58 BUN 27 H 21 H 26 H Creatinine 1.1 H 1.1 H 1.3 H Estimated GFR (MDRD) 53 L 53 L 44 L 02/27/22 02/26/22 02/25/22 06:04 05:35 15:56 BUN 26 H 12 11 Creatinine 1.4 H 0.6 0.6 Estimated GFR (MDRD) 40 L 107 107 Vancomycin Monitoring 02/26/22 16:00 Vancomycin Trough 29.3 H* Cultures 02/25/22 16:08 Blood - Right Iv-Start Blood Culture - Final Beta Hemolytic Strep Group B 02/25/22 15:56 Blood - Right Arm Blood Culture - Final Strep Agalactiae - (Group B) 02/27/22 16:24 Blood - Right Hand Blood Culture - Preliminary NO GROWTH AFTER 2 DAYS 02/27/22 16:19 Blood - Right Arm Blood Culture - Preliminary NO GROWTH AFTER 2 DAYS 02/25/22 15:56 Blood - Right Arm Blood Culture (PCR) - Final Monitoring plan: Daily serum creatinine, Suggest ongoing fluid replacement Areas for additional monitoring: IV to PO when appropriate, Therapy de-escalation based on culture results Pharmacy recommendation: Continue current regime (Since pt has been on vanco during this admission prior to this episode, will continue maintenace dose to 1 gm q12h starting tonight (03/05 0100) after the 1.5G loading dose for estimated trough of 17.6 mcg/mL and estimated AUC/JASBIR of 561 mcg*hr/mL based on prior levels. Trough prior to 4th dose.)
[2022-03-04] MEDS: INSULIN GLARGINE 300 UNIT/3 ML PEN SUBQ SCH (20:59)
[2022-03-04] MEDS: OLANZapine ODT 5 MG TABLET TL SCH (21:01)
[2022-03-05] MEDS: PIPERACILLIN/TAZOBACTAM 3.375 GM in SODIUM CHLORIDE 0.9% MINIBAG 100 ML IV SCH ×4 (05:42→23:44)
[2022-03-05 05:58] LABS: BASOPHILS % (AUTO) 0.4 %; EOSINOPHILS % (AUTO) 8.2 %; HCT - HEMATOCRIT 30.6 % (37.0-47.0); HGB - HEMOGLOBIN 9.9 g/dL (12.0-16.0); LYMPHOCYTES % (AUTO) 18.5 %; MEAN CORPUSCULAR HGB CONC 32.4 g/dL (32.0-36.0); MEAN CORPUSCULAR VOLUME 86.7 fL (81.0-99.0); MEAN PLATELET VOLUME 8.8 fL (7.9-10.8); PLT - PLATELET COUNT 401 10^3/uL (130-450); RED BLOOD COUNT 3.53 10^6/uL (4.20-5.40); RED CELL DISTRIBUTION WIDTH 12.8 % (12.0-15.0); WHITE BLOOD COUNT 13.6 x10^3/uL (4.8-10.8)
[2022-03-05 06:01] LABS: ABNORMAL LYMPHS % (MANUAL) 0 %; BAND NEUTROPHILS % (MANUAL) 0 %
[2022-03-05 06:16] LABS: CALCIUM 8.9 mg/dL (8.5-10.3); CREATININE 1.3 mg/dL (0.4-1.0); POTASSIUM 4.1 mmol/L (3.5-5.0)
[2022-03-05 06:21] LABS: DIFFERENTIAL COMMENT MANUAL DIFFERENTIAL; EOSINOPHILS # (MANUAL) 0.8 10^3/uL (0-0.7); LYMPHOCYTES # (MANUAL) 2.7 10^3/uL (1.5-3.5); LYMPHOCYTES % (MANUAL) 20 %; MONOCYTES # (MANUAL) 0.5 10^3/uL (0.0-1.0); NEUTROPHILS # (MANUAL) 9.5 10^3/uL (1.5-6.6); PLATELET ESTIMATE, MANUAL NORMAL (130-450,000) (NORMAL); PLATELET MORPHOLOGY NORMAL APPEARANCE (NORMAL); RBC MORPHOLOGY (MULTIPLE) NORMAL APPEARANCE (NORMAL); WBC MORPHOLOGY (MULTIPLE) NORMAL APPEARANCE (NORMAL)
[2022-03-05] MEDS: INSULIN ASPART 300 UNIT/3 ML PEN SUBQ SCH ×7 (08:57→20:48)
[2022-03-05] MEDS: ENOXAPARIN 40 MG/0.4 ML SYRINGE SUBQ SCH (08:58)
[2022-03-05] MEDS: LACTOBACILLUS RHAMNOSUS GG CAPSULE PO SCH (08:58)
[2022-03-05] MEDS: SODIUM CHLORIDE FLUSH 0.9% 10 ML SYRINGE IVP SCH ×3 (08:58→23:45)
[2022-03-05] MEDS: MULTIVITAMIN W/MINERALS TABLET PO SCH (08:58)
[2022-03-05] MEDS: SODIUM CHLORIDE FLUSH 0.9% 10 ML SYRINGE IVP PRN (11:34)
[2022-03-05] MEDS ORDERED: VANCOMYCIN INJ 1 GM in SODIUM CHLORIDE 0.9% 250 ML IV SCH (13:00)
--- NOTE | 2022-03-05 15:01 | PROVIDER PROGRESS NOTE ---
Subjective - General Admit Date: 02/25/22 - Review of Systems General: positive: No symptoms All Other Systems: positive: Reviewed and negative - Other Other Information/Narrative: She denies pain to left foot. She denies fever or chills. Objective - Patient Data Vital Signs: Vital Signs x48h Temp Pulse Resp BP Pulse Ox 03/05/22 08:01 36.5 C 77 16 143/75 H 92 Weight: Weight 03/03/22 03/04/22 03/05/22 23:59 23:59 23:59 Weight (kg) 71.5 kg Intake & Output: Intake and Output Totals x24h 03/03/22 03/04/22 03/05/22 23:59 23:59 23:59 Intake Total 1520 1656 1020 Balance 1520 1656 1020 - Lab Results Lab Results: 03/05/22 05:45 03/05/22 05:45 Other Lab Results: Lab Results x24hrs 03/05/22 03/05/22 03/05/22 Range/Units 11:36 07:59 05:45 WBC (4.8-10.8) x10^3/uL RBC (4.20-5.40) 10^6/uL Hgb (12.0-16.0) g/dL Hct (37.0-47.0) % MCV (81.0-99.0) fL MCH (27.0-31.0) pg MCHC (32.0-36.0) g/dL RDW (12.0-15.0) % Plt Count (130-450) 10^3/uL MPV (7.9-10.8) fL Neut # (Auto) Lymph # (Auto) Bertie # (Auto) Eos # (Auto) Baso # (Auto) Absolute Nucleated RBC Total Counted Band Neuts % (Manual) (0 - 10) % Abnorm Lymph % (Manual) % Nucleated RBC % Neutrophils # (Manual) (1.5-6.6) 10^3/uL Lymphocytes # (Manual) (1.5-3.5) 10^3/uL Monocytes # (Manual) (0.0-1.0) 10^3/uL Eosinophils # (Manual) (0-0.7) 10^3/uL Basophils # (Manual) (0-0.1) 10^3/uL Differential Comment WBC Morphology (NORMAL) Platelet Estimate (NORMAL) Platelet Morphology (NORMAL) RBC Morph Micro Appear (NORMAL) Sodium 142 (135-145) mmol/L Potassium 4.1 (3.5-5.0) mmol/L Chloride 101 (101-111) mmol/L Carbon Dioxide 29 (21-32) mmol/L Anion Gap 12.0 (6-13) BUN 28 H (6-20) mg/dL Creatinine 1.3 H (0.4-1.0) mg/dL Estimated GFR (MDRD) 44 L (>89) Glucose 158 H (70-100) mg/dL POC Whole Bld Glucose 208 H 155 H (70 - 100) mg/dL Calcium 8.9 (8.5-10.3) mg/dL C-Reactive Protein 7.0 H (0-1.0) mg/dL 03/05/22 03/04/22 03/04/22 Range/Units 05:45 20:45 16:39 WBC 13.6 H (4.8-10.8) x10^3/uL RBC 3.53 L (4.20-5.40) 10^6/uL Hgb 9.9 L (12.0-16.0) g/dL Hct 30.6 L (37.0-47.0) % MCV 86.7 (81.0-99.0) fL MCH 28.0 (27.0-31.0) pg MCHC 32.4 (32.0-36.0) g/dL RDW 12.8 (12.0-15.0) % Plt Count 401 (130-450) 10^3/uL MPV 8.8 (7.9-10.8) fL Neut # (Auto) Not Reportable Lymph # (Auto) Not Reportable Bertie # (Auto) Not Reportable Eos # (Auto) Not Reportable Baso # (Auto) Not Reportable Absolute Nucleated RBC Not Reportable Total Counted 100 Band Neuts % (Manual) 0 (0 - 10) % Abnorm Lymph % (Manual) 0 % Nucleated RBC % Not Reportable Neutrophils # (Manual) 9.5 H (1.5-6.6) 10^3/uL Lymphocytes # (Manual) 2.7 (1.5-3.5) 10^3/uL Monocytes # (Manual) 0.5 (0.0-1.0) 10^3/uL Eosinophils # (Manual) 0.8 H (0-0.7) 10^3/uL Basophils # (Manual) 0.0 (0-0.1) 10^3/uL Differential Comment MANUAL DIFFERENTIAL WBC Morphology NORMAL APPEARANCE (NORMAL) Platelet Estimate NORMAL (130-450,000) (NORMAL) Platelet Morphology NORMAL APPEARANCE (NORMAL) RBC Morph Micro Appear NORMAL APPEARANCE (NORMAL) Sodium (135-145) mmol/L Potassium (3.5-5.0) mmol/L Chloride (101-111) mmol/L Carbon Dioxide (21-32) mmol/L Anion Gap (6-13) BUN (6-20) mg/dL Creatinine (0.4-1.0) mg/dL Estimated GFR (MDRD) (>89) Glucose (70-100) mg/dL POC Whole Bld Glucose 197 H 176 H (70 - 100) mg/dL Calcium (8.5-10.3) mg/dL C-Reactive Protein (0-1.0) mg/dL - Current Medications Current Medications: Current Medications Generic Name Dose Route Start Last Admin Trade Name Freq PRN Reason Stop Dose Admin Acetaminophen 650 mg 02/25/22 16:52 02/28/22 23:54 Acetaminophen 325 Mg Tablet PO 650 mg Q4HR PRN Administration Pain 1 to 4, or Fever Enoxaparin Sodium 40 mg 02/26/22 09:00 03/05/22 08:58 Enoxaparin 40 Mg/0.4 Ml Syringe SUBQ 40 mg DAILY LAUREN Administration Piperacillin Sod/Tazobactam 100 mls @ 200 mls/hr 03/04/22 12:00 03/05/22 12:04 Sod 3.375 gm/ Sodium Chloride IV Infused Q6H LAUREN Infusion Ibuprofen 600 mg 02/25/22 20:39 03/02/22 16:16 Ibuprofen 600 Mg Tablet PO 600 mg Q6HR PRN Administration PAIN 1-4 Insulin Aspart 8 unit 03/03/22 12:00 03/05/22 11:50 Insulin Aspart 300 Unit/3 Ml Pen SUBQ 8 unit TIDWM LAUREN Administration Protocol Insulin Aspart 1 - 9 unit 03/03/22 12:00 03/05/22 11:50 Insulin Aspart 300 Unit/3 Ml Pen SUBQ 3 unit 0800,1200,1700,2100 LAUREN Administration Protocol Insulin Glargine 28 unit 03/01/22 21:00 03/04/22 20:59 Insulin Glargine 300 Unit/3 Ml Pen SUBQ 28 unit QPM LAUREN Administration Lactobacillus Rhamnosus 1 cap 02/27/22 09:00 03/05/22 08:58 Lactobacillus Rhamnosus Gg Capsule PO 1 cap DAILY LAUREN Administration Multivitamins/Minerals 1 tab 02/26/22 15:00 03/05/22 08:58 Multivitamin W/Minerals Tablet PO 1 tab DAILYWM LAUREN Administration Olanzapine 20 mg 02/25/22 21:00 03/04/22 21:01 Olanzapine Odt 5 Mg Tablet TL 20 mg QPM LAUREN Administration Sodium Chloride 10 ml 02/25/22 16:52 03/05/22 11:34 Sodium Chloride Flush 0.9% 10 Ml Syringe IVP 10 ml PRN PRN Administration NEEDED PER PROVIDER ORDERS Sodium Chloride 10 ml 02/25/22 17:00 03/05/22 08:58 Sodium Chloride Flush 0.9% 10 Ml Syringe IVP 10 ml 0100,0900,1700 LAUREN Administration - Physical Exam Comments/Other: The left foot dressing was changed. The second toe remains viable, localized dry necrosis over the dorsum of the distal half of toe just above proximal nail fold. 2 wounds over the dorsum of the left second toe communicate with a fluid collection dorsum of foot. Serosanguineous drainage without overt pus could be expressed. Swelling is decreased. Ulcer over the second metatarsal head remains without change, no sign of overt infection Impression/Plan - Problem List Problem List: Cellulitis left forefoot, and involving left third toe. She seems to be gradually responding to treatment with decreasing white blood cell count today. A new iodoform pack was inserted into the area of fluid collection from the base of the third toe, covered with sterile dressing.She jaleel uld continue present antibiotics. I think local wound care will help I think the chances of any surgical treatment is low. I suspect she will be able to switch to oral antibiotics after 2 weeks of intravenous antibiotics if she continues to improve.
--- NOTE | 2022-03-05 15:56 | PROVIDER PROGRESS NOTE ---
Assessment/Plan - Problem List (1) Diabetic foot ulcer Qualifiers: Diabetic foot ulcer location: midfoot Diabetes mellitus type: type 2 Laterality: left Non-pressure ulcer stage: unspecified non-pressure ulcer stage Qualified Code(s): E11.621 - Type 2 diabetes mellitus with foot ulcer; L97.429 - Non-pressure chronic ulcer of left heel and midfoot with unspecified severity Assessment/Plan: Because of the worsening WBC, we wdid broaden the antibx from ceftriaxone IV to iv Vanco and iv Zosyn. Her WBC has finally decreased, after we changed antibx from Ceftrixone to Zosyn. Duplex evaluations showed no evidence of DVT or of arterial disease of the L foot. Therefore the 3rd toe is still viable, except for the localized black area of the dorsum of 3rd toe. Dr Lott saw the pt and examined the area and said it is slt better and that he will consider if surg is needed after the weekend (today is ) Continue present antibx Follow CBC and CRP daily Wound care has been consulted but no Wound personnel and are at [facility] this entire week. I have tried to call ID but have not connected with them (2) Osteomyelitis Impression: Yesterday's foot MRI reported that she does have osteomyelitis, plus an abcsess and persistent cellulitis/myositis. Dr. Lott of Ortho came and reevaluated the patient today. He states that there is probably no osteomyelitis, despite the reading on MRI, because by MRI osteo is usually over read, and because she has no drainage from the wound opening on the plantar aspect of the foot. He advises continued IV antibiotics, broadened coverage and watchful waiting. (3) Bacteremia due to Streptococcus Impression: Initial blood cultures grew strep group B. Repeat cultures have been negative to date. Because of her white blood cell count improving initially, she was de- escalated to Ceftriaxone IV daily. Then WBC radha and we broadened antibx coverage The Echo was neg for vegetations PICC line was placed yesterday. She will need at least 2 weeks of IV antibiotics but possibly now 6 weeks, given the read-out of osteomyelitis on MRI. ID will be contacted to discuss her management (4) Acute kidney injury Impression: This is stable. Her baseline creat 0.6. This was felt to be secondary to the vancomycin given she had an elevated trough. Vancomycin was discontinued. We have held off on further IV hydration given her adequate oral intake but if her creatinine begins to rise we may need to consider IV fluids. (5) Hyperglycemia due to type 2 diabetes mellitus Impression: She reported poor glucose control at the time of admission. Her blood glucose has been well controlled here, afyter antibx were started and on Lantus 28 units in the evening and 8 units of NovoLog with meals. informatics educator has seen the pt Qualifiers: Diabetes mellitus shelter insulin use: without shelter use Qualified Code(s): E11.65 - Type 2 diabetes mellitus with hyperglycemia (6) Schizoaffective disorder Impression: The patient was so anxious about getting a PICC line that she refused it initially, and said she would agree to having it She did have her PICC line successfuly inserted. We are continuing with her usual psych med, olanzapine. (7) Inguinal lymphadenopathy Impression: She has left inguinal lymphadenopathy which we suspected is likely reactive due to the diabetic foot ulcer and infection in the left foot. She will need repeat imaging to ensure this resolves after the L foot/toe infection improves. (8) Hyponatremia Impression: This has resolved after iv hydration. (9) Sepsis Impression: Sepsis is now resolved. - Current Meds Current Meds: Current Medications Generic Name Dose Route Start Last Admin Trade Name Freq PRN Reason Stop Dose Admin Acetaminophen 650 mg 02/25/22 16:52 02/28/22 23:54 Acetaminophen 325 Mg Tablet PO 650 mg Q4HR PRN Administration Pain 1 to 4, or Fever Enoxaparin Sodium 40 mg 02/26/22 09:00 03/05/22 08:58 Enoxaparin 40 Mg/0.4 Ml Syringe SUBQ 40 mg DAILY LAUREN Administration Piperacillin Sod/Tazobactam 100 mls @ 200 mls/hr 03/04/22 12:00 03/05/22 12:04 Sod 3.375 gm/ Sodium Chloride IV Infused Q6H LAUREN Infusion Ibuprofen 600 mg 02/25/22 20:39 03/02/22 16:16 Ibuprofen 600 Mg Tablet PO 600 mg Q6HR PRN Administration PAIN 1-4 Insulin Aspart 8 unit 03/03/22 12:00 03/05/22 11:50 Insulin Aspart 300 Unit/3 Ml Pen SUBQ 8 unit TIDWM LAUREN Administration Protocol Insulin Aspart 1 - 9 unit 03/03/22 12:00 03/05/22 11:50 Insulin Aspart 300 Unit/3 Ml Pen SUBQ 3 unit 0800,1200,1700,2100 LAUREN Administration Protocol Insulin Glargine 28 unit 03/01/22 21:00 03/04/22 20:59 Insulin Glargine 300 Unit/3 Ml Pen SUBQ 28 unit QPM LAUREN Administration Lactobacillus Rhamnosus 1 cap 02/27/22 09:00 03/05/22 08:58 Lactobacillus Rhamnosus Gg Capsule PO 1 cap DAILY LAUREN Administration Multivitamins/Minerals 1 tab 02/26/22 15:00 03/05/22 08:58 Multivitamin W/Minerals Tablet PO 1 tab DAILYWM LAUREN Administration Olanzapine 20 mg 02/25/22 21:00 03/04/22 21:01 Olanzapine Odt 5 Mg Tablet TL 20 mg QPM LAUREN Administration Sodium Chloride 10 ml 02/25/22 16:52 03/05/22 11:34 Sodium Chloride Flush 0.9% 10 Ml Syringe IVP 10 ml PRN PRN Administration NEEDED PER PROVIDER ORDERS Sodium Chloride 10 ml 02/25/22 17:00 03/05/22 08:58 Sodium Chloride Flush 0.9% 10 Ml Syringe IVP 10 ml 0100,0900,1700 LAUREN Administration - Lab Result Fish Bone Diagrams: 03/06/22 07:35 03/06/22 07:35 Subjective - Subjective Patient Reports: Feeling Better (Not woozy and weak, like yesterday) Objective Vital Signs: Vital Signs - 24 hr 03/04/22 03/05/22 03/05/22 23:30 08:01 15:43 Temperature 37.4 C 36.5 C 36.8 C Heart Rate [ 84 77 79 Brachial] Respiratory 20 16 24 Rate Blood Pressure 143/71 H 143/75 H 126/66 [Left Brachial artery] O2 Saturation 92 92 94 Oxygen O2 Source Room air I&O (Last 24 Hrs): Intake and Output Totals x24h 03/03/22 03/04/22 03/05/22 23:59 23:59 23:59 Intake Total 1520 1656 1020 Balance 1520 1656 1020 General: Alert, Oriented x3 HEENT: Mucous membr. moist/pink Neck: Supple, No JVD Neuro: Alert, Non Focal, Other (decreased sensation dorsum of feet) Cardiovascular: Regular rate Respiratory: No respiratory distress Abdomen: Soft Extremities: Other (L foot bandaged) - Results Results: Laboratory Results WBC 13.6 x10^3/uL (4.8-10.8) H 03/05/22 05:45 RBC 3.53 10^6/uL (4.20-5.40) L 03/05/22 05:45 Hgb 9.9 g/dL (12.0-16.0) L 03/05/22 05:45 Hct 30.6 % (37.0-47.0) L 03/05/22 05:45 MCV 86.7 fL (81.0-99.0) 03/05/22 05:45 MCH 28.0 pg (27.0-31.0) 03/05/22 05:45 MCHC 32.4 g/dL (32.0-36.0) 03/05/22 05:45 RDW 12.8 % (12.0-15.0) 03/05/22 05:45 Plt Count 401 10^3/uL (130-450) 03/05/22 05:45 MPV 8.8 fL (7.9-10.8) 03/05/22 05:45 Neut # (Auto) Not Reportable 03/05/22 05:45 Lymph # (Auto) Not Reportable 03/05/22 05:45 Levy # (Auto) Not Reportable 03/05/22 05:45 Eos # (Auto) Not Reportable 03/05/22 05:45 Baso # (Auto) Not Reportable 03/05/22 05:45 Absolute Nucleated RBC Not Reportable 03/05/22 05:45 Total Counted 100 03/05/22 05:45 Band Neuts % (Manual) 0 % (0-10) 03/05/22 05:45 Abnorm Lymph % (Manual) 0 % 03/05/22 05:45 Nucleated RBC % Not Reportable 03/05/22 05:45 Neutrophils # (Manual) 9.5 10^3/uL (1.5-6.6) H 03/05/22 05:45 Lymphocytes # (Manual) 2.7 10^3/uL (1.5-3.5) 03/05/22 05:45 Monocytes # (Manual) 0.5 10^3/uL (0.0-1.0) 03/05/22 05:45 Eosinophils # (Manual) 0.8 10^3/uL (0-0.7) H 03/05/22 05:45 Basophils # (Manual) 0.0 10^3/uL (0-0.1) 03/05/22 05:45 Differential Comment MANUAL DIFFERENTIAL 03/05/22 05:45 WBC Morphology NORMAL APPEARANCE (NORMAL) 03/05/22 05:45 Platelet Estimate NORMAL (130-450,000) (NORMAL) 03/05/22 05:45 Platelet Morphology NORMAL APPEARANCE (NORMAL) 03/05/22 05:45 RBC Morph Micro Appear NORMAL APPEARANCE (NORMAL) 03/05/22 05:45 Sodium 142 mmol/L (135-145) 03/05/22 05:45 Potassium 4.1 mmol/L (3.5-5.0) 03/05/22 05:45 Chloride 101 mmol/L (101-111) 03/05/22 05:45 Carbon Dioxide 29 mmol/L (21-32) 03/05/22 05:45 Anion Gap 12.0 (6-13) 03/05/22 05:45 BUN 28 mg/dL (6-20) H 03/05/22 05:45 Creatinine 1.3 mg/dL (0.4-1.0) H 03/05/22 05:45 Estimated GFR (MDRD) 44 (>89) L 03/05/22 05:45 Glucose 158 mg/dL (70-100) H 03/05/22 05:45 POC Whole Bld Glucose 208 mg/dL (70 - 100) H 03/05/22 11:36 Estimat Average Glucose 332 mg/dL (70-100) H 02/25/22 15:56 Hemoglobin A1c % 13.2 % (4.27-6.07) H 02/25/22 15:56 Lactic Acid 1.3 mmol/L (0.5-2.2) 02/25/22 15:56 Calcium 8.9 mg/dL (8.5-10.3) 03/05/22 05:45 Iron 21 ug/dL (28-170) L 03/02/22 04:50 TIBC 251 ug/dL (250-450) 03/02/22 04:50 % Saturation 8 % (20-50) L 03/02/22 04:50 Transferrin 179 mg/dL (192-382) L 03/02/22 04:50 Ferritin 147.3 ng/mL (11.0-306.8) 03/02/22 04:50 Total Bilirubin 1.0 mg/dL (0.2-1.0) 02/25/22 15:56 AST 13 IU/L (10-42) 02/25/22 15:56 ALT 19 IU/L (10-60) 02/25/22 15:56 Alkaline Phosphatase 95 IU/L (42-121) 02/25/22 15:56 C-Reactive Protein 7.0 mg/dL (0-1.0) H 03/05/22 05:45 Total Protein 7.7 g/dL (6.7-8.2) 02/25/22 15:56 Albumin 3.1 g/dL (3.2-5.5) L 02/25/22 15:56 Globulin 4.6 g/dL (2.1-4.2) H 02/25/22 15:56 Albumin/Globulin Ratio 0.7 (1.0-2.2) L 02/25/22 15:56 Procalcitonin 1.67 ng/mL (<0.5) H 02/25/22 15:56 Urine Color YELLOW 02/25/22 19:17 Urine Clarity CLOUDY (CLEAR) 02/25/22 19:17 Urine pH 6.0 PH (5.0-7.5) 02/25/22 19:17 Ur Specific Smock 1.010 (1.002-1.030) 02/25/22 19:17 Urine Protein TRACE mg/dL (NEGATIVE) 02/25/22 19:17 Urine Glucose (UA) >=1000 mg/dL (NEGATIVE) H 02/25/22 19:17 Urine Ketones NEGATIVE mg/dL (NEGATIVE) 02/25/22 19:17 Urine Occult Blood TRACE-INTA (NEGATIVE) 02/25/22 19:17 Urine Nitrite NEGATIVE (NEGATIVE) 02/25/22 19:17 Urine Bilirubin NEGATIVE (NEGATIVE) 02/25/22 19:17 Urine Urobilinogen 0.2 (NORMAL) E.U./dL (NORMAL) 02/25/22 19:17 Ur Leukocyte Esterase SMALL (NEGATIVE) H 02/25/22 19:17 Urine RBC 0-5 /HPF (0-5) 02/25/22 19:17 Urine WBC 6-10 /HPF (0-5) H 02/25/22 19:17 Ur Squamous Epith Cells MANY Squamous (<= Few) H 02/25/22 19:17 Urine Bacteria Moderate /HPF (None Seen) H 02/25/22 19:17 Urine Culture Comments NOT INDICATED 02/25/22 19:17 Nasal Adenovirus (PCR) NOT DETECTED 02/25/22 16:50 Nasal B. parapertussis DNA (PCR) NOT DETECTED 02/25/22 16:50 Nasal Coronavir 229E PCR NOT DETECTED 02/25/22 16:50 Nasal Coronavir HKU1 PCR NOT DETECTED 02/25/22 16:50 Nasal Coronavir NL63 PCR NOT DETECTED 02/25/22 16:50 Nasal Coronavir OC43 PCR NOT DETECTED 02/25/22 16:50 Nasal Enterovir/Rhinovir PCR NOT DETECTED 02/25/22 16:50 Nasal Influenza B PCR NOT DETECTED 02/25/22 16:50 Nasal Influenza A PCR NOT DETECTED 02/25/22 16:50 Nasal Parainfluen 1 PCR NOT DETECTED 02/25/22 16:50 Nasal Parainfluen 2 PCR NOT DETECTED 02/25/22 16:50 Nasal Parainfluen 3 PCR NOT DETECTED 02/25/22 16:50 Nasal Parainfluen 4 PCR NOT DETECTED 02/25/22 16:50 Nasal RSV (PCR) NOT DETECTED 02/25/22 16:50 Nasal Screen MRSA (PCR) NEGATIVE (NEGATIVE) 02/26/22 09:50 Nasal B.pertussis DNA PCR NOT DETECTED 02/25/22 16:50 Nasal C.pneumoniae (PCR) NOT DETECTED 02/25/22 16:50 Calixto Human Metapneumo PCR NOT DETECTED 02/25/22 16:50 Nasal M.pneumoniae (PCR) NOT DETECTED 02/25/22 16:50 Nasal SARS-CoV-2 (PCR) NOT DETECTED 02/25/22 16:50 Vancomycin Trough 29.3 ug/mL (10.0-20.0) H* 02/26/22 16:00 Sepsis Event Note (H) - Evaluation Current Stage of Sepsis: Sepsis Possible source of Sepsis: positive: Skin/soft tissue - Sepsis Criteria Sepsis Criteria: Recorded Heart Rate greater than 90 bpm, Recorded Respiratory Rate greater than 20, WBC count greater than 12,000 or less than 4000
[2022-03-05] MEDS: INSULIN GLARGINE 300 UNIT/3 ML PEN SUBQ SCH (20:49)
[2022-03-05] MEDS: OLANZapine ODT 5 MG TABLET TL SCH (20:52)
[2022-03-05] MEDS: IBUPROFEN 600 MG TABLET PO PRN (23:44)
[2022-03-06] MEDS: PIPERACILLIN/TAZOBACTAM 3.375 GM in SODIUM CHLORIDE 0.9% MINIBAG 100 ML IV SCH ×4 (05:35→23:53)
[2022-03-06] MEDS: MULTIVITAMIN W/MINERALS TABLET PO SCH (07:49)
[2022-03-06] MEDS: INSULIN ASPART 300 UNIT/3 ML PEN SUBQ SCH ×7 (07:49→21:34)
[2022-03-06 07:52] LABS: BASOPHILS # (AUTO) 0.1 10^3/uL (0.0-0.1); BASOPHILS % (AUTO) 0.4 %; EOSINOPHILS # (AUTO) 0.9 10^3/uL (0.0-0.7); EOSINOPHILS % (AUTO) 8.2 %; HCT - HEMATOCRIT 30.8 % (37.0-47.0); LYMPHOCYTES # (AUTO) 2.9 10^3/uL (1.5-3.5); LYMPHOCYTES % (AUTO) 25.3 %; MEAN CORPUSCULAR HEMOGLOBIN 28.1 pg (27.0-31.0); MEAN CORPUSCULAR HGB CONC 32.5 g/dL (32.0-36.0); MEAN CORPUSCULAR VOLUME 86.5 fL (81.0-99.0); MEAN PLATELET VOLUME 8.8 fL (7.9-10.8); MONOCYTES # (AUTO) 0.9 10^3/uL (0.0-1.0); MONOCYTES % (AUTO) 8.1 %; NEUTROPHILS # (AUTO) 6.4 10^3/uL (1.5-6.6); NEUTROPHILS % (AUTO) 56.1 %; PLT - PLATELET COUNT 401 10^3/uL (130-450); RED BLOOD COUNT 3.56 10^6/uL (4.20-5.40); RED CELL DISTRIBUTION WIDTH 12.5 % (12.0-15.0); WHITE BLOOD COUNT 11.3 x10^3/uL (4.8-10.8)
[2022-03-06 08:08] LABS: CALCIUM 8.8 mg/dL (8.5-10.3); CREATININE 1.2 mg/dL (0.4-1.0); CRP - C-REACTIVE PROTEIN 5.6 mg/dL (0-1.0); POTASSIUM 3.7 mmol/L (3.5-5.0)
[2022-03-06] MEDS: IBUPROFEN 600 MG TABLET PO PRN ×2 (08:39→18:49)
[2022-03-06] MEDS: LACTOBACILLUS RHAMNOSUS GG CAPSULE PO SCH (08:39)
[2022-03-06] MEDS: ENOXAPARIN 40 MG/0.4 ML SYRINGE SUBQ SCH (08:41)
[2022-03-06] MEDS: SODIUM CHLORIDE FLUSH 0.9% 10 ML SYRINGE IVP SCH ×2 (08:41→18:10)
--- NOTE | 2022-03-06 09:50 | PROVIDER PROGRESS NOTE ---
Subjective - General Admit Date: 02/25/22 - Review of Systems General: positive: No symptoms All Other Systems: positive: Reviewed and negative - Other Other Information/Narrative: Patient denies any problems. She states she is feeling well. Objective - Patient Data Vital Signs: Vital Signs x48h Temp Pulse Resp BP Pulse Ox 03/06/22 07:11 36.4 C L 67 18 111/63 92 Intake & Output: Intake and Output Totals x24h 03/04/22 03/05/22 03/06/22 23:59 23:59 23:59 Intake Total 1656 1540 420 Balance 1656 1540 420 - Lab Results Lab Results: 03/06/22 07:35 03/06/22 07:35 Other Lab Results: Lab Results x24hrs 03/06/22 03/06/22 03/06/22 Range/Units 07:35 07:35 07:13 WBC 11.3 H (4.8-10.8) x10^3/uL RBC 3.56 L (4.20-5.40) 10^6/uL Hgb 10.0 L (12.0-16.0) g/dL Hct 30.8 L (37.0-47.0) % MCV 86.5 (81.0-99.0) fL MCH 28.1 (27.0-31.0) pg MCHC 32.5 (32.0-36.0) g/dL RDW 12.5 (12.0-15.0) % Plt Count 401 (130-450) 10^3/uL MPV 8.8 (7.9-10.8) fL Neut # (Auto) 6.4 (1.5-6.6) 10^3/uL Lymph # (Auto) 2.9 (1.5-3.5) 10^3/uL [place] # (Auto) 0.9 (0.0-1.0) 10^3/uL Eos # (Auto) 0.9 H (0.0-0.7) 10^3/uL Baso # (Auto) 0.1 (0.0-0.1) 10^3/uL Absolute Nucleated RBC 0.00 x10^3/uL Nucleated RBC % 0.0 /100WBC Sodium 142 (135-145) mmol/L Potassium 3.7 (3.5-5.0) mmol/L Chloride 100 L (101-111) mmol/L Carbon Dioxide 31 (21-32) mmol/L Anion Gap 11.0 (6-13) BUN 26 H (6-20) mg/dL Creatinine 1.2 H (0.4-1.0) mg/dL Estimated GFR (MDRD) 48 L (>89) Glucose 137 H (70-100) mg/dL POC Whole Bld Glucose 129 H (70 - 100) mg/dL Calcium 8.8 (8.5-10.3) mg/dL C-Reactive Protein 5.6 H (0-1.0) mg/dL 03/05/22 03/05/22 03/05/22 Range/Units 20:40 16:51 11:36 WBC (4.8-10.8) x10^3/uL RBC (4.20-5.40) 10^6/uL Hgb (12.0-16.0) g/dL Hct (37.0-47.0) % MCV (81.0-99.0) fL MCH (27.0-31.0) pg MCHC (32.0-36.0) g/dL RDW (12.0-15.0) % Plt Count (130-450) 10^3/uL MPV (7.9-10.8) fL Neut # (Auto) (1.5-6.6) 10^3/uL Lymph # (Auto) (1.5-3.5) 10^3/uL [place] # (Auto) (0.0-1.0) 10^3/uL Eos # (Auto) (0.0-0.7) 10^3/uL Baso # (Auto) (0.0-0.1) 10^3/uL Absolute Nucleated RBC x10^3/uL Nucleated RBC % /100WBC Sodium (135-145) mmol/L Potassium (3.5-5.0) mmol/L Chloride (101-111) mmol/L Carbon Dioxide (21-32) mmol/L Anion Gap (6-13) BUN (6-20) mg/dL Creatinine (0.4-1.0) mg/dL Estimated GFR (MDRD) (>89) Glucose (70-100) mg/dL POC Whole Bld Glucose 175 H 171 H 208 H (70 - 100) mg/dL Calcium (8.5-10.3) mg/dL C-Reactive Protein (0-1.0) mg/dL - Current Medications Current Medications: Current Medications Generic Name Dose Route Start Last Admin Trade Name Freq PRN Reason Stop Dose Admin Acetaminophen 650 mg 02/25/22 16:52 02/28/22 23:54 Acetaminophen 325 Mg Tablet PO 650 mg Q4HR PRN Administration Pain 1 to 4, or Fever Enoxaparin Sodium 40 mg 02/26/22 09:00 03/06/22 08:41 Enoxaparin 40 Mg/0.4 Ml Syringe SUBQ 40 mg DAILY LAUREN Administration Piperacillin Sod/Tazobactam 100 mls @ 200 mls/hr 03/04/22 12:00 03/06/22 06:05 Sod 3.375 gm/ Sodium Chloride IV Infused Q6H LAUREN Infusion Ibuprofen 600 mg 02/25/22 20:39 03/06/22 08:39 Ibuprofen 600 Mg Tablet PO 600 mg Q6HR PRN Administration PAIN 1-4 Insulin Aspart 8 unit 03/03/22 12:00 03/06/22 07:49 Insulin Aspart 300 Unit/3 Ml Pen SUBQ 8 unit TIDWM LAUREN Administration Protocol Insulin Aspart 1 - 9 unit 03/03/22 12:00 03/06/22 07:49 Insulin Aspart 300 Unit/3 Ml Pen SUBQ Not Given 0800,1200,1700,2100 LAUREN Protocol Insulin Glargine 28 unit 03/01/22 21:00 03/05/22 20:49 Insulin Glargine 300 Unit/3 Ml Pen SUBQ 28 unit QPM LAUREN Administration Lactobacillus Rhamnosus 1 cap 02/27/22 09:00 03/06/22 08:39 Lactobacillus Rhamnosus Gg Capsule PO 1 cap DAILY LAUREN Administration Multivitamins/Minerals 1 tab 02/26/22 15:00 03/06/22 07:49 Multivitamin W/Minerals Tablet PO 1 tab DAILYWM LAUREN Administration Olanzapine 20 mg 02/25/22 21:00 03/05/22 20:52 Olanzapine Odt 5 Mg Tablet TL 20 mg QPM LAUREN Administration Sodium Chloride 10 ml 02/25/22 16:52 03/05/22 11:34 Sodium Chloride Flush 0.9% 10 Ml Syringe IVP 10 ml PRN PRN Administration NEEDED PER PROVIDER ORDERS Sodium Chloride 10 ml 02/25/22 17:00 03/06/22 08:41 Sodium Chloride Flush 0.9% 10 Ml Syringe IVP 10 ml 0100,0900,1700 [facility] Administration - Physical Exam Comments/Other: Findings are similar to yesterday but better. The fluid collection over the dorsum of the foot has less fluid and the fluid is mostly hemorrhagic. There is no sign of purulence. The third toe is unchanged. There is still an area of full-thickness necrosis over the dorsum of the distal half of the third toe that remains dry. The 2 open wounds over the dorsum of the third toe are clean. ABX Reporting Has patient been on IV antibiotics over the past 48 hours?: Yes Impression/Plan - Problem List Problem List: Diabetic left foot cellulitis, ulceration and partial necrosis left third toe She does have a history of diabetic neuropathy and ulceration over the second me tatarsal head. The ulceration over the second metatarsal head remains clean and dry. She seems to be responding to local wound care with iodoform packing that was done today and over the past 2 days. The amount of fluid collection is decreasing. There is no sign of active cellulitis. Her white blood cell count and C-reactive protein are both decreasing. The plan is to continue systemic broad-spectrum antibiotic to cover both aerobic and anaerobic bacteria. She is making definite improvement on current treatment. I cannot exclude amputation of the third toe in the future but no definite need for this at this time. The decision for amputation will depend upon how much healing will occur to the third toe over the next several days.
--- NOTE | 2022-03-06 17:32 | PROVIDER PROGRESS NOTE ---
Assessment/Plan - Problem List (1) Diabetic foot ulcer Qualifiers: Diabetic foot ulcer location: midfoot Diabetes mellitus type: type 2 Laterality: left Non-pressure ulcer stage: unspecified non-pressure ulcer stage Qualified Code(s): E11.621 - Type 2 diabetes mellitus with foot ulcer; L97.429 - Non-pressure chronic ulcer of left heel and midfoot with unspecified severity Assessment/Plan: Because of the worsening WBC, we did broaden the antibx from ceftriaxone IV to iv Zosyn. Her WBC has finally decreased, today down to 1,after we changed antibx from Ceftrixone to Zosyn 2 days ago. Duplex evaluations showed no evidence of DVT or of arterial disease of the L f oot. Therefore the 3rd toe is still viable, except for the localized black area of the dorsum of 3rd toe. Dr Lott saw the pt and examined the area and said it is slightly better and that he will consider if surg is needed after the weekend (today is ) Continue present antibx Follow CBC and CRP daily Wound care has been consulted but no Wound personnel and are at [facility] this entire week. I have tried to call ID to discuss course of treatment and confirm choice of antibx, but have not connected with them (2) Osteomyelitis Impression: The foot MRI reported that she does have osteomyelitis, plus an abcsess and persistent cellulitis/myositis. Dr. Lott of Ortho is following the patient daily. He states that there is probably no osteomyelitis, despite the reading on MRI, because by MRI osteo is usually overread, and because she has no drainage from the wound opening on the plantar aspect of the foot. He advises continued IV antibiotics, and we broadened coverage (3) Bacteremia due to Streptococcus Impression: Initial blood cultures grew strep group B. Repeat cultures have been negative to date. Because of her white blood cell count improving initially, she was de- escalated to Ceftriaxone IV daily. The WBC radha, and we broadened antibx The Echo did not suspect a valve vegetation. PICC line was placed She will need at least 2 weeks of IV antibiotics but possibly now 6 weeks, given the read-out of osteomyelitis on MRI. Plan that ID will be contacted to discuss her management (4) Acute kidney injury Impression: This is stable. Her baseline creat 0.6. This was felt to be secondary to the vancomycin given she had an elevated trough. Vancomycin was discontinued. We have held off on further IV hydration given her adequate oral intake but if her creatinine begins to rise we may need to consider IV fluids. (5) Hyperglycemia due to type 2 diabetes mellitus Impression: She reported poor glucose control at the time of admission. Her blood glucose has been well controlled here, after antibx were started and on Lantus 28 units in the evening and 8 units of NovoLog with meals. clinical unit educator has seen her too Qualifiers: Diabetes mellitus termination clerk insulin use: without termination clerk use Qualified Code(s): E11.65 - Type 2 diabetes mellitus with hyperglycemia (6) Schizoaffective disorder Impression: The patient was so anxious about getting a PICC line that she refused it initially. We are continuing with her usual psych med, olanzapine. (7) Inguinal lymphadenopathy Impression: She had left inguinal lymphadenopathy which we suspected is likely reactive due to the diabetic foot ulcer and infection in the left foot. She will need repeat imaging to ensure this resolves after the L foot/toe infection improves. (8) Hyponatremia Impression: This has resolved after iv hydration. (9) Sepsis Impression: Sepsis is now resolved. - Current Meds Current Meds: Current Medications Generic Name Dose Route Start Last Admin Trade Name Freq PRN Reason Stop Dose Admin Acetaminophen 650 mg 02/25/22 16:52 02/28/22 23:54 Acetaminophen 325 Mg Tablet PO 650 mg Q4HR PRN Administration Pain 1 to 4, or Fever Enoxaparin Sodium 40 mg 02/26/22 09:00 03/06/22 08:41 Enoxaparin 40 Mg/0.4 Ml Syringe SUBQ 40 mg DAILY LAUREN Administration Piperacillin Sod/Tazobactam 100 mls @ 200 mls/hr 03/04/22 12:00 03/06/22 11:35 Sod 3.375 gm/ Sodium Chloride IV 200 mls/hr Q6H LAUREN Administration Ibuprofen 600 mg 02/25/22 20:39 03/06/22 08:39 Ibuprofen 600 Mg Tablet PO 600 mg Q6HR PRN Administration PAIN 1-4 Insulin Aspart 8 unit 03/03/22 12:00 03/06/22 17:24 Insulin Aspart 300 Unit/3 Ml Pen SUBQ 8 unit TIDWM LAUREN Administration Protocol Insulin Aspart 1 - 9 unit 03/03/22 12:00 03/06/22 17:27 Insulin Aspart 300 Unit/3 Ml Pen SUBQ Not Given 0800,1200,1700,2100 [facility] Protocol Insulin Glargine 28 unit 03/01/22 21:00 03/05/22 20:49 Insulin Glargine 300 Unit/3 Ml Pen SUBQ 28 unit QPM LAUREN Administration Lactobacillus Rhamnosus 1 cap 02/27/22 09:00 03/06/22 08:39 Lactobacillus Rhamnosus Gg Capsule PO 1 cap DAILY LAUREN Administration Multivitamins/Minerals 1 tab 02/26/22 15:00 03/06/22 07:49 Multivitamin W/Minerals Tablet PO 1 tab DAILYWM LAUREN Administration Olanzapine 20 mg 02/25/22 21:00 03/05/22 20:52 Olanzapine Odt 5 Mg Tablet TL 20 mg QPM LAUREN Administration Sodium Chloride 10 ml 02/25/22 16:52 03/05/22 11:34 Sodium Chloride Flush 0.9% 10 Ml Syringe IVP 10 ml PRN PRN Administration NEEDED PER PROVIDER ORDERS Sodium Chloride 10 ml 02/25/22 17:00 03/06/22 08:41 Sodium Chloride Flush 0.9% 10 Ml Syringe IVP 10 ml 0100,0900,1700 LAUREN Administration - Lab Result Fish Bone Diagrams: 03/06/22 07:35 03/06/22 07:35 Subjective - Subjective Patient Reports: Feeling Better, No Complaints Objective Vital Signs: Vital Signs - 24 hr 03/05/22 03/06/22 03/06/22 23:29 07:11 13:26 Temperature 37.0 C 36.4 C L Heart Rate [ 83 67 72 Brachial] Respiratory 22 18 16 Rate Blood Pressure 125/61 111/63 130/78 [Left Brachial artery] Blood Pressure [Right Brachial artery] O2 Saturation 96 92 92 03/06/22 16:03 Temperature 36.6 C Heart Rate [ 69 Brachial] Respiratory 20 Rate Blood Pressure [Left Brachial artery] Blood Pressure 124/69 [Right Brachial artery] O2 Saturation 94 Oxygen O2 Source Room air I&O (Last 24 Hrs): Intake and Output Totals x24h 03/04/22 03/05/22 03/06/22 23:59 23:59 23:59 Intake Total 1656 1540 660 Balance 1656 1540 660 General: Alert, Oriented x3 HEENT: EOMI, Mucous membr. moist/pink Neck: Supple, No JVD Neuro: Alert, Non Focal, Other (poor sensation dorsum of feet) Cardiovascular: Regular rate, No murmurs Respiratory: No respiratory distress, Breath sounds nml Abdomen: Normal bowel sounds, Soft, No tenderness Extremities: Other (L foot and toes are bandaged) - Results Results: Laboratory Results WBC 11.3 x10^3/uL (4.8-10.8) H 03/06/22 07:35 RBC 3.56 10^6/uL (4.20-5.40) L 03/06/22 07:35 Hgb 10.0 g/dL (12.0-16.0) L 03/06/22 07:35 Hct 30.8 % (37.0-47.0) L 03/06/22 07:35 MCV 86.5 fL (81.0-99.0) 03/06/22 07:35 MCH 28.1 pg (27.0-31.0) 03/06/22 07:35 MCHC 32.5 g/dL (32.0-36.0) 03/06/22 07:35 RDW 12.5 % (12.0-15.0) 03/06/22 07:35 Plt Count 401 10^3/uL (130-450) 03/06/22 07:35 MPV 8.8 fL (7.9-10.8) 03/06/22 07:35 Neut # (Auto) 6.4 10^3/uL (1.5-6.6) 03/06/22 07:35 Lymph # (Auto) 2.9 10^3/uL (1.5-3.5) 03/06/22 07:35 [place] # (Auto) 0.9 10^3/uL (0.0-1.0) 03/06/22 07:35 Eos # (Auto) 0.9 10^3/uL (0.0-0.7) H 03/06/22 07:35 Baso # (Auto) 0.1 10^3/uL (0.0-0.1) 03/06/22 07:35 Absolute Nucleated RBC 0.00 x10^3/uL 03/06/22 07:35 Total Counted 100 03/05/22 05:45 Band Neuts % (Manual) 0 % (0-10) 03/05/22 05:45 Abnorm Lymph % (Manual) 0 % 03/05/22 05:45 Nucleated RBC % 0.0 /100WBC 03/06/22 07:35 Neutrophils # (Manual) 9.5 10^3/uL (1.5-6.6) H 03/05/22 05:45 Lymphocytes # (Manual) 2.7 10^3/uL (1.5-3.5) 03/05/22 05:45 Monocytes # (Manual) 0.5 10^3/uL (0.0-1.0) 03/05/22 05:45 Eosinophils # (Manual) 0.8 10^3/uL (0-0.7) H 03/05/22 05:45 Basophils # (Manual) 0.0 10^3/uL (0-0.1) 03/05/22 05:45 Differential Comment MANUAL DIFFERENTIAL 03/05/22 05:45 WBC Morphology NORMAL APPEARANCE (NORMAL) 03/05/22 05:45 Platelet Estimate NORMAL (130-450,000) (NORMAL) 03/05/22 05:45 Platelet Morphology NORMAL APPEARANCE (NORMAL) 03/05/22 05:45 RBC Morph Micro Appear NORMAL APPEARANCE (NORMAL) 03/05/22 05:45 Sodium 142 mmol/L (135-145) 03/06/22 07:35 Potassium 3.7 mmol/L (3.5-5.0) 03/06/22 07:35 Chloride 100 mmol/L (101-111) L 03/06/22 07:35 Carbon Dioxide 31 mmol/L (21-32) 03/06/22 07:35 Anion Gap 11.0 (6-13) 03/06/22 07:35 BUN 26 mg/dL (6-20) H 03/06/22 07:35 Creatinine 1.2 mg/dL (0.4-1.0) H 03/06/22 07:35 Estimated GFR (MDRD) 48 (>89) L 03/06/22 07:35 Glucose 137 mg/dL (70-100) H 03/06/22 07:35 POC Whole Bld Glucose 138 mg/dL (70 - 100) H 03/06/22 16:19 Estimat Average Glucose 332 mg/dL (70-100) H 02/25/22 15:56 Hemoglobin A1c % 13.2 % (4.27-6.07) H 02/25/22 15:56 Lactic Acid 1.3 mmol/L (0.5-2.2) 02/25/22 15:56 Calcium 8.8 mg/dL (8.5-10.3) 03/06/22 07:35 Iron 21 ug/dL (28-170) L 03/02/22 04:50 TIBC 251 ug/dL (250-450) 03/02/22 04:50 % Saturation 8 % (20-50) L 03/02/22 04:50 Transferrin 179 mg/dL (192-382) L 03/02/22 04:50 Ferritin 147.3 ng/mL (11.0-306.8) 03/02/22 04:50 Total Bilirubin 1.0 mg/dL (0.2-1.0) 02/25/22 15:56 AST 13 IU/L (10-42) 02/25/22 15:56 ALT 19 IU/L (10-60) 02/25/22 15:56 Alkaline Phosphatase 95 IU/L (42-121) 02/25/22 15:56 C-Reactive Protein 5.6 mg/dL (0-1.0) H 03/06/22 07:35 Total Protein 7.7 g/dL (6.7-8.2) 02/25/22 15:56 Albumin 3.1 g/dL (3.2-5.5) L 02/25/22 15:56 Globulin 4.6 g/dL (2.1-4.2) H 02/25/22 15:56 Albumin/Globulin Ratio 0.7 (1.0-2.2) L 02/25/22 15:56 Procalcitonin 1.67 ng/mL (<0.5) H 02/25/22 15:56 Urine Color YELLOW 02/25/22 19:17 Urine Clarity CLOUDY (CLEAR) 02/25/22 19:17 Urine pH 6.0 PH (5.0-7.5) 02/25/22 19:17 Ur Specific [place] 1.010 (1.002-1.030) 02/25/22 19:17 Urine Protein TRACE mg/dL (NEGATIVE) 02/25/22 19:17 Urine Glucose (UA) >=1000 mg/dL (NEGATIVE) H 02/25/22 19:17 Urine Ketones NEGATIVE mg/dL (NEGATIVE) 02/25/22 19:17 Urine Occult Blood TRACE-INTA (NEGATIVE) 02/25/22 19:17 Urine Nitrite NEGATIVE (NEGATIVE) 02/25/22 19:17 Urine Bilirubin NEGATIVE (NEGATIVE) 02/25/22 19:17 Urine Urobilinogen 0.2 (NORMAL) E.U./dL (NORMAL) 02/25/22 19:17 Ur Leukocyte Esterase SMALL (NEGATIVE) H 02/25/22 19:17 Urine RBC 0-5 /HPF (0-5) 02/25/22 19:17 Urine WBC 6-10 /HPF (0-5) H 02/25/22 19:17 Ur Squamous Epith Cells MANY Squamous (<= Few) H 02/25/22 19:17 Urine Bacteria Moderate /HPF (None Seen) H 02/25/22 19:17 Urine Culture Comments NOT INDICATED 02/25/22 19:17 Nasal Adenovirus (PCR) NOT DETECTED 02/25/22 16:50 Nasal B. parapertussis DNA (PCR) NOT DETECTED 02/25/22 16:50 Nasal Coronavir 229E PCR NOT DETECTED 02/25/22 16:50 Nasal Coronavir HKU1 PCR NOT DETECTED 02/25/22 16:50 Nasal Coronavir NL63 PCR NOT DETECTED 02/25/22 16:50 Nasal Coronavir OC43 PCR NOT DETECTED 02/25/22 16:50 Nasal Enterovir/Rhinovir PCR NOT DETECTED 02/25/22 16:50 Nasal Influenza B PCR NOT DETECTED 02/25/22 16:50 Nasal Influenza A PCR NOT DETECTED 02/25/22 16:50 Nasal Parainfluen 1 PCR NOT DETECTED 02/25/22 16:50 Nasal Parainfluen 2 PCR NOT DETECTED 02/25/22 16:50 Nasal Parainfluen 3 PCR NOT DETECTED 02/25/22 16:50 Nasal Parainfluen 4 PCR NOT DETECTED 02/25/22 16:50 Nasal RSV (PCR) NOT DETECTED 02/25/22 16:50 Nasal Screen MRSA (PCR) NEGATIVE (NEGATIVE) 02/26/22 09:50 Nasal B.pertussis DNA PCR NOT DETECTED 02/25/22 16:50 Nasal C.pneumoniae (PCR) NOT DETECTED 02/25/22 16:50 Calixto Human Metapneumo PCR NOT DETECTED 02/25/22 16:50 Nasal M.pneumoniae (PCR) NOT DETECTED 02/25/22 16:50 Nasal SARS-CoV-2 (PCR) NOT DETECTED 02/25/22 16:50 Vancomycin Trough 29.3 ug/mL (10.0-20.0) H* 02/26/22 16:00 Sepsis Event Note (H) - Evaluation Current Stage of Sepsis: Sepsis Possible source of Sepsis: positive: Skin/soft tissue - Sepsis Criteria Sepsis Criteria: Recorded Heart Rate greater than 90 bpm, Recorded Respiratory Rate greater than 20, WBC count greater than 12,000 or less than 4000
[2022-03-06] MEDS: INSULIN GLARGINE 300 UNIT/3 ML PEN SUBQ SCH (21:35)
[2022-03-06] MEDS: OLANZapine ODT 5 MG TABLET TL SCH (21:37)
[2022-03-07] MEDS: SODIUM CHLORIDE FLUSH 0.9% 10 ML SYRINGE IVP SCH ×4 (04:30→23:39)
[2022-03-07] MEDS: PIPERACILLIN/TAZOBACTAM 3.375 GM in SODIUM CHLORIDE 0.9% MINIBAG 100 ML IV SCH ×4 (06:34→23:39)
[2022-03-07 06:47] LABS: BASOPHILS # (AUTO) 0.1 10^3/uL (0.0-0.1); BASOPHILS % (AUTO) 0.8 %; EOSINOPHILS % (AUTO) 8.2 %; HCT - HEMATOCRIT 31.1 % (37.0-47.0); HGB - HEMOGLOBIN 10.1 g/dL (12.0-16.0); LYMPHOCYTES # (AUTO) 3.5 10^3/uL (1.5-3.5); LYMPHOCYTES % (AUTO) 29.7 %; MEAN CORPUSCULAR HGB CONC 32.5 g/dL (32.0-36.0); MEAN CORPUSCULAR VOLUME 86.1 fL (81.0-99.0); MEAN PLATELET VOLUME 8.7 fL (7.9-10.8); MONOCYTES # (AUTO) 0.9 10^3/uL (0.0-1.0); MONOCYTES % (AUTO) 7.5 %; NEUTROPHILS # (AUTO) 6.1 10^3/uL (1.5-6.6); NEUTROPHILS % (AUTO) 52.6 %; PLT - PLATELET COUNT 377 10^3/uL (130-450); RED BLOOD COUNT 3.61 10^6/uL (4.20-5.40); RED CELL DISTRIBUTION WIDTH 12.6 % (12.0-15.0); WHITE BLOOD COUNT 11.7 x10^3/uL (4.8-10.8)
[2022-03-07 07:04] LABS: CREATININE 1.2 mg/dL (0.4-1.0); CRP - C-REACTIVE PROTEIN 4.7 mg/dL (0-1.0)
[2022-03-07] MEDS: INSULIN ASPART 300 UNIT/3 ML PEN SUBQ SCH ×6 (07:57→17:51)
[2022-03-07] MEDS: MULTIVITAMIN W/MINERALS TABLET PO SCH (07:57)
[2022-03-07] MEDS: IBUPROFEN 600 MG TABLET PO PRN ×2 (08:36→17:34)
[2022-03-07] MEDS: ENOXAPARIN 40 MG/0.4 ML SYRINGE SUBQ SCH (08:37)
--- NOTE | 2022-03-07 10:54 | PROVIDER PROGRESS NOTE ---
Subjective - General Admit Date: 02/25/22 - Review of Systems General: positive: No symptoms All Other Systems: positive: Reviewed and negative - Other Other Information/Narrative: She reports that she is a little tired this morning. She is comfortable and has no pain to her left foot. She notes that her left foot now appears very close to normal in comparison to when she first came into the hospital. Objective - Patient Data Vital Signs: Vital Signs x48h Temp Pulse Resp BP Pulse Ox 03/07/22 07:25 36.5 C 71 17 126/71 93 Intake & Output: Intake and Output Totals x24h 03/05/22 03/06/22 03/07/22 23:59 23:59 23:59 Intake Total 1540 1450 380 Balance 1540 1450 380 - Lab Results Lab Results: 03/07/22 06:25 03/07/22 06:25 Other Lab Results: Lab Results x24hrs 03/07/22 03/07/22 03/07/22 Range/Units 07:24 06:25 06:25 WBC 11.7 H (4.8-10.8) x10^3/uL RBC 3.61 L (4.20-5.40) 10^6/uL Hgb 10.1 L (12.0-16.0) g/dL Hct 31.1 L (37.0-47.0) % MCV 86.1 (81.0-99.0) fL MCH 28.0 (27.0-31.0) pg MCHC 32.5 (32.0-36.0) g/dL RDW 12.6 (12.0-15.0) % Plt Count 377 (130-450) 10^3/uL MPV 8.7 (7.9-10.8) fL Neut # (Auto) 6.1 (1.5-6.6) 10^3/uL Lymph # (Auto) 3.5 (1.5-3.5) 10^3/uL [place] # (Auto) 0.9 (0.0-1.0) 10^3/uL Eos # (Auto) 1.0 H (0.0-0.7) 10^3/uL Baso # (Auto) 0.1 (0.0-0.1) 10^3/uL Absolute Nucleated RBC 0.00 x10^3/uL Nucleated RBC % 0.0 /100WBC Sodium 142 (135-145) mmol/L Potassium 4.0 (3.5-5.0) mmol/L Chloride 102 (101-111) mmol/L Carbon Dioxide 29 (21-32) mmol/L Anion Gap 11.0 (6-13) BUN 31 H (6-20) mg/dL Creatinine 1.2 H (0.4-1.0) mg/dL Estimated GFR (MDRD) 48 L (>89) Glucose 115 H (70-100) mg/dL POC Whole Bld Glucose 104 H (70 - 100) mg/dL Calcium 9.0 (8.5-10.3) mg/dL C-Reactive Protein 4.7 H (0-1.0) mg/dL 03/06/22 03/06/22 03/06/22 Range/Units 20:38 16:19 11:13 WBC (4.8-10.8) x10^3/uL RBC (4.20-5.40) 10^6/uL Hgb (12.0-16.0) g/dL Hct (37.0-47.0) % MCV (81.0-99.0) fL MCH (27.0-31.0) pg MCHC (32.0-36.0) g/dL RDW (12.0-15.0) % Plt Count (130-450) 10^3/uL MPV (7.9-10.8) fL Neut # (Auto) (1.5-6.6) 10^3/uL Lymph # (Auto) (1.5-3.5) 10^3/uL [place] # (Auto) (0.0-1.0) 10^3/uL Eos # (Auto) (0.0-0.7) 10^3/uL Baso # (Auto) (0.0-0.1) 10^3/uL Absolute Nucleated RBC x10^3/uL Nucleated RBC % /100WBC Sodium (135-145) mmol/L Potassium (3.5-5.0) mmol/L Chloride (101-111) mmol/L Carbon Dioxide (21-32) mmol/L Anion Gap (6-13) BUN (6-20) mg/dL Creatinine (0.4-1.0) mg/dL Estimated GFR (MDRD) (>89) Glucose (70-100) mg/dL POC Whole Bld Glucose 162 H 138 H 154 H (70 - 100) mg/dL Calcium (8.5-10.3) mg/dL C-Reactive Protein (0-1.0) mg/dL - Current Medications Current Medications: Current Medications Generic Name Dose Route Start Last Admin Trade Name Freq PRN Reason Stop Dose Admin Acetaminophen 650 mg 02/25/22 16:52 02/28/22 23:54 Acetaminophen 325 Mg Tablet PO 650 mg Q4HR PRN Administration Pain 1 to 4, or Fever Enoxaparin Sodium 40 mg 02/26/22 09:00 03/07/22 08:37 Enoxaparin 40 Mg/0.4 Ml Syringe SUBQ 40 mg DAILY LAUREN Administration Piperacillin Sod/Tazobactam 100 mls @ 200 mls/hr 03/04/22 12:00 03/07/22 07:14 Sod 3.375 gm/ Sodium Chloride IV Infused Q6H LAUREN Infusion Ibuprofen 600 mg 02/25/22 20:39 03/07/22 08:36 Ibuprofen 600 Mg Tablet PO 600 mg Q6HR PRN Administration PAIN 1-4 Insulin Aspart 8 unit 03/03/22 12:00 03/07/22 07:57 Insulin Aspart 300 Unit/3 Ml Pen SUBQ 8 unit TIDWM LAUREN Administration Protocol Insulin Aspart 1 - 9 unit 03/03/22 12:00 03/07/22 07:58 Insulin Aspart 300 Unit/3 Ml Pen SUBQ Not Given 0800,1200,1700,2100 [facility] Protocol Insulin Glargine 28 unit 03/01/22 21:00 03/06/22 21:35 Insulin Glargine 300 Unit/3 Ml Pen SUBQ 28 unit QPM LAUREN Administration Lactobacillus Rhamnosus 1 cap 02/27/22 09:00 03/06/22 08:39 Lactobacillus Rhamnosus Gg Capsule PO 1 cap DAILY LAUREN Administration Multivitamins/Minerals 1 tab 02/26/22 15:00 03/07/22 07:57 Multivitamin W/Minerals Tablet PO 1 tab DAILYWM LAUREN Administration Olanzapine 20 mg 02/25/22 21:00 03/06/22 21:37 Olanzapine Odt 5 Mg Tablet TL 20 mg QPM LAUREN Administration Sodium Chloride 10 ml 02/25/22 16:52 03/05/22 11:34 Sodium Chloride Flush 0.9% 10 Ml Syringe IVP 10 ml PRN PRN Administration NEEDED PER PROVIDER ORDERS Sodium Chloride 10 ml 02/25/22 17:00 03/07/22 08:37 Sodium Chloride Flush 0.9% 10 Ml Syringe IVP 10 ml 0100,0900,1700 [facility] Administration - Physical Exam Comments/Other: The left foot continues to improve. The amount of swelling that can be elicited from compression of the dorsum of the left foot fluctuant area is minimal and the fluid is clear and mildly hemorrhagic. There is no cellulitis. There is no sign of abscess. The third toe remains viable with 2 small ulcerations over the dorsum of the proximal half of the third toe and dry necrosis over the distal portion of the third toe. The left third toe remains unchanged. Impression/Plan - Problem List Problem List: Diabetic foot cellulitis, ulceration and neuropathy She continues to improve on a daily basis. No packing was applied today, Xeroform sterile foot dressing applied to left forefoot. Continue present treatment, consider discharge to home and treatment as outpatient if she continues to improve next week
--- NOTE | 2022-03-07 17:55 | PROVIDER PROGRESS NOTE ---
Assessment/Plan - Problem List (1) Diabetic foot ulcer Qualifiers: Diabetic foot ulcer location: midfoot Diabetes mellitus type: type 2 Laterality: left Non-pressure ulcer stage: unspecified non-pressure ulcer stage Qualified Code(s): E11.621 - Type 2 diabetes mellitus with foot ulcer; L97.429 - Non-pressure chronic ulcer of left heel and midfoot with unspecified severity Assessment/Plan: Because of the worsening WBC, we did broaden the antibx from ceftriaxone IV to iv Zosyn. Her WBC has finally decreased, today down to 1,after we changed antibx from Ceftrixone to Zosyn 2 days ago. Duplex evaluations showed no evidence of DVT or of arterial disease of the L f oot. Therefore the 3rd toe is still viable, except for the localized black area of the dorsum of 3rd toe. Dr Lott saw the pt and examined the area and said it is slightly better and that he now does not think surg is needed Continue present antibx Follow CBC and CRP daily Wound care has been consulted but no Wound personnel and are at [facility] this entire week. I have tried to call ID to discuss course of treatment and confirm choice of antibx, but have not connected with them (2) Osteomyelitis Impression: The foot MRI reported that she does have osteomyelitis, plus an abcsess and persistent cellulitis/myositis. Dr. Lott of Ortho is following the patient daily. He states that there is probably no osteomyelitis, despite the reading on MRI, because by MRI osteo is usually overread, and because she has no drainage from the wound opening on the plantar aspect of the foot. He advises continued IV antibiotics, and we broadened coverage (3) Bacteremia due to Streptococcus Impression: Initial blood cultures grew strep group B. Repeat cultures have been negative to date. Because of her white blood cell count improving initially, she was de- escalated to Ceftriaxone IV daily. The WBC radha, and we broadened antibx The Echo did not suspect a valve vegetation. PICC line was placed She will need at least 2 weeks of IV antibiotics but possibly now 6 weeks, given the read-out of osteomyelitis on MRI. Plan that ID will be contacted to discuss her management (4) Acute kidney injury Impression: This is stable. Her baseline creat 0.6. This was felt to be secondary to the vancomycin given she had an elevated trough. Vancomycin was discontinued. We have held off on further IV hydration given her adequate oral intake but if her creatinine begins to rise we may need to consider IV fluids. (5) Hyperglycemia due to type 2 diabetes mellitus Impression: She reported poor glucose control at the time of admission. Her blood glucose has been well controlled here, after antibx were started and on Lantus 28 units in the evening and 8 units of NovoLog with meals. primary special educator has seen her too Qualifiers: Diabetes mellitus long-term insulin use: without long-term use Qualified Code(s): E11.65 - Type 2 diabetes mellitus with hyperglycemia (6) Schizoaffective disorder Impression: The patient was so anxious about getting a PICC line that she refused it initially. We are continuing with her usual psych med, olanzapine. (7) Inguinal lymphadenopathy Impression: She had left inguinal lymphadenopathy which we suspected is likely reactive due to the diabetic foot ulcer and infection in the left foot. She will need repeat imaging to ensure this resolves after the L foot/toe infection improves. (8) Hyponatremia Impression: This has resolved after iv hydration. (9) Sepsis Impression: Sepsis is now resolved. - Current Meds Current Meds: Current Medications Generic Name Dose Route Start Last Admin Trade Name Freq PRN Reason Stop Dose Admin Acetaminophen 650 mg 02/25/22 16:52 02/28/22 23:54 Acetaminophen 325 Mg Tablet PO 650 mg Q4HR PRN Administration Pain 1 to 4, or Fever Enoxaparin Sodium 40 mg 02/26/22 09:00 03/07/22 08:37 Enoxaparin 40 Mg/0.4 Ml Syringe SUBQ 40 mg DAILY LAUREN Administration Piperacillin Sod/Tazobactam 100 mls @ 200 mls/hr 03/04/22 12:00 03/07/22 11:4 8 Sod 3.375 gm/ Sodium Chloride IV 200 mls/hr Q6H LAUREN Administration Ibuprofen 600 mg 02/25/22 20:39 03/07/22 17:34 Ibuprofen 600 Mg Tablet PO 600 mg Q6HR PRN Administration PAIN 1-4 Insulin Aspart 8 unit 03/03/22 12:00 03/07/22 17:51 Insulin Aspart 300 Unit/3 Ml Pen SUBQ Not Given TIDWM LAUREN Protocol Insulin Aspart 1 - 9 unit 03/03/22 12:00 03/07/22 17:33 Insulin Aspart 300 Unit/3 Ml Pen SUBQ Not Given 0800,1200,1700,2100 [facility] Protocol Insulin Glargine 28 unit 03/01/22 21:00 03/06/22 21:35 Insulin Glargine 300 Unit/3 Ml Pen SUBQ 28 unit QPM LAUREN Administration Lactobacillus Rhamnosus 1 cap 02/27/22 09:00 03/06/22 08:39 Lactobacillus Rhamnosus Gg Capsule PO 1 cap DAILY LAUREN Administration Multivitamins/Minerals 1 tab 02/26/22 15:00 03/07/22 07:57 Multivitamin W/Minerals Tablet PO 1 tab DAILYWM LAUREN Administration Olanzapine 20 mg 02/25/22 21:00 03/06/22 21:37 Olanzapine Odt 5 Mg Tablet TL 20 mg QPM LAUREN Administration Sodium Chloride 10 ml 02/25/22 16:52 03/05/22 11:34 Sodium Chloride Flush 0.9% 10 Ml Syringe IVP 10 ml PRN PRN Administration NEEDED PER PROVIDER ORDERS Sodium Chloride 10 ml 02/25/22 17:00 03/07/22 08:37 Sodium Chloride Flush 0.9% 10 Ml Syringe IVP 10 ml 0100,0900,1700 LAUREN Administration - Lab Result Fish Bone Diagrams: 03/07/22 06:25 03/07/22 06:25 Subjective - Subjective Patient Reports: Feeling Better, Resting Comfortably, No Complaints Objective Vital Signs: Vital Signs - 24 hr 03/06/22 03/07/22 03/07/22 23:58 07:25 12:59 Temperature 36.8 C 36.5 C 36.5 C Heart Rate [ 72 71 68 Brachial] Respiratory 16 17 16 Rate Blood Pressure 117/70 126/71 121/63 [Left Brachial artery] O2 Saturation 92 93 92 03/07/22 16:14 Temperature 36.4 C L Heart Rate [ 65 Brachial] Respiratory 20 Rate Blood Pressure 137/83 H [Left Brachial artery] O2 Saturation 93 Oxygen O2 Source Room air I&O (Last 24 Hrs): Intake and Output Totals x24h 03/05/22 03/06/22 03/07/22 23:59 23:59 23:59 Intake Total 1540 1450 920 Balance 1540 1450 920 General: Alert, Oriented x3 HEENT: Mucous membr. moist/pink Neck: Supple, No JVD Neuro: Alert, Other (no sens bottom of feet) Cardiovascular: Regular rate Respiratory: No respiratory distress Abdomen: Normal bowel sounds, Soft Extremities: Other (Left foot and toes are bandaged) - Results Results: Laboratory Results WBC 11.7 x10^3/uL (4.8-10.8) H 03/07/22 06:25 RBC 3.61 10^6/uL (4.20-5.40) L 03/07/22 06:25 Hgb 10.1 g/dL (12.0-16.0) L 03/07/22 06:25 Hct 31.1 % (37.0-47.0) L 03/07/22 06:25 MCV 86.1 fL (81.0-99.0) 03/07/22 06:25 MCH 28.0 pg (27.0-31.0) 03/07/22 06:25 MCHC 32.5 g/dL (32.0-36.0) 03/07/22 06:25 RDW 12.6 % (12.0-15.0) 03/07/22 06:25 Plt Count 377 10^3/uL (130-450) 03/07/22 06:25 MPV 8.7 fL (7.9-10.8) 03/07/22 06:25 Neut # (Auto) 6.1 10^3/uL (1.5-6.6) 03/07/22 06:25 Lymph # (Auto) 3.5 10^3/uL (1.5-3.5) 03/07/22 06:25 [place] # (Auto) 0.9 10^3/uL (0.0-1.0) 03/07/22 06:25 Eos # (Auto) 1.0 10^3/uL (0.0-0.7) H 03/07/22 06:25 Baso # (Auto) 0.1 10^3/uL (0.0-0.1) 03/07/22 06:25 Absolute Nucleated RBC 0.00 x10^3/uL 03/07/22 06:25 Total Counted 100 03/05/22 05:45 Band Neuts % (Manual) 0 % (0-10) 03/05/22 05:45 Abnorm Lymph % (Manual) 0 % 03/05/22 05:45 Nucleated RBC % 0.0 /100WBC 03/07/22 06:25 Neutrophils # (Manual) 9.5 10^3/uL (1.5-6.6) H 03/05/22 05:45 Lymphocytes # (Manual) 2.7 10^3/uL (1.5-3.5) 03/05/22 05:45 Monocytes # (Manual) 0.5 10^3/uL (0.0-1.0) 03/05/22 05:45 Eosinophils # (Manual) 0.8 10^3/uL (0-0.7) H 03/05/22 05:45 Basophils # (Manual) 0.0 10^3/uL (0-0.1) 03/05/22 05:45 Differential Comment MANUAL DIFFERENTIAL 03/05/22 05:45 WBC Morphology NORMAL APPEARANCE (NORMAL) 03/05/22 05:45 Platelet Estimate NORMAL (130-450,000) (NORMAL) 03/05/22 05:45 Platelet Morphology NORMAL APPEARANCE (NORMAL) 03/05/22 05:45 RBC Morph Micro Appear NORMAL APPEARANCE (NORMAL) 03/05/22 05:45 Sodium 142 mmol/L (135-145) 03/07/22 06:25 Potassium 4.0 mmol/L (3.5-5.0) 03/07/22 06:25 Chloride 102 mmol/L (101-111) 03/07/22 06:25 Carbon Dioxide 29 mmol/L (21-32) 03/07/22 06:25 Anion Gap 11.0 (6-13) 03/07/22 06:25 BUN 31 mg/dL (6-20) H 03/07/22 06:25 Creatinine 1.2 mg/dL (0.4-1.0) H 03/07/22 06:25 Estimated GFR (MDRD) 48 (>89) L 03/07/22 06:25 Glucose 115 mg/dL (70-100) H 03/07/22 06:25 POC Whole Bld Glucose 86 mg/dL (70 - 100) 03/07/22 16:49 Estimat Average Glucose 332 mg/dL (70-100) H 02/25/22 15:56 Hemoglobin A1c % 13.2 % (4.27-6.07) H 02/25/22 15:56 Lactic Acid 1.3 mmol/L (0.5-2.2) 02/25/22 15:56 Calcium 9.0 mg/dL (8.5-10.3) 03/07/22 06:25 Iron 21 ug/dL (28-170) L 03/02/22 04:50 TIBC 251 ug/dL (250-450) 03/02/22 04:50 % Saturation 8 % (20-50) L 03/02/22 04:50 Transferrin 179 mg/dL (192-382) L 03/02/22 04:50 Ferritin 147.3 ng/mL (11.0-306.8) 03/02/22 04:50 Total Bilirubin 1.0 mg/dL (0.2-1.0) 02/25/22 15:56 AST 13 IU/L (10-42) 02/25/22 15:56 ALT 19 IU/L (10-60) 02/25/22 15:56 Alkaline Phosphatase 95 IU/L (42-121) 02/25/22 15:56 C-Reactive Protein 4.7 mg/dL (0-1.0) H 03/07/22 06:25 Total Protein 7.7 g/dL (6.7-8.2) 02/25/22 15:56 Albumin 3.1 g/dL (3.2-5.5) L 02/25/22 15:56 Globulin 4.6 g/dL (2.1-4.2) H 02/25/22 15:56 Albumin/Globulin Ratio 0.7 (1.0-2.2) L 02/25/22 15:56 Procalcitonin 1.67 ng/mL (<0.5) H 02/25/22 15:56 Urine Color YELLOW 02/25/22 19:17 Urine Clarity CLOUDY (CLEAR) 02/25/22 19:17 Urine pH 6.0 PH (5.0-7.5) 02/25/22 19:17 Ur Specific [place] 1.010 (1.002-1.030) 02/25/22 19:17 Urine Protein TRACE mg/dL (NEGATIVE) 02/25/22 19:17 Urine Glucose (UA) >=1000 mg/dL (NEGATIVE) H 02/25/22 19:17 Urine Ketones NEGATIVE mg/dL (NEGATIVE) 02/25/22 19:17 Urine Occult Blood TRACE-INTA (NEGATIVE) 02/25/22 19:17 Urine Nitrite NEGATIVE (NEGATIVE) 02/25/22 19:17 Urine Bilirubin NEGATIVE (NEGATIVE) 02/25/22 19:17 Urine Urobilinogen 0.2 (NORMAL) E.U./dL (NORMAL) 02/25/22 19:17 Ur Leukocyte Esterase SMALL (NEGATIVE) H 02/25/22 19:17 Urine RBC 0-5 /HPF (0-5) 02/25/22 19:17 Urine WBC 6-10 /HPF (0-5) H 02/25/22 19:17 Ur Squamous Epith Cells MANY Squamous (<= Few) H 02/25/22 19:17 Urine Bacteria Moderate /HPF (None Seen) H 02/25/22 19:17 Urine Culture Comments NOT INDICATED 02/25/22 19:17 Nasal Adenovirus (PCR) NOT DETECTED 02/25/22 16:50 Nasal B. parapertussis DNA (PCR) NOT DETECTED 02/25/22 16:50 Nasal Coronavir 229E PCR NOT DETECTED 02/25/22 16:50 Nasal Coronavir HKU1 PCR NOT DETECTED 02/25/22 16:50 Nasal Coronavir NL63 PCR NOT DETECTED 02/25/22 16:50 Nasal Coronavir OC43 PCR NOT DETECTED 02/25/22 16:50 Nasal Enterovir/Rhinovir PCR NOT DETECTED 02/25/22 16:50 Nasal Influenza B PCR NOT DETECTED 02/25/22 16:50 Nasal Influenza A PCR NOT DETECTED 02/25/22 16:50 Nasal Parainfluen 1 PCR NOT DETECTED 02/25/22 16:50 Nasal Parainfluen 2 PCR NOT DETECTED 02/25/22 16:50 Nasal Parainfluen 3 PCR NOT DETECTED 02/25/22 16:50 Nasal Parainfluen 4 PCR NOT DETECTED 02/25/22 16:50 Nasal RSV (PCR) NOT DETECTED 02/25/22 16:50 Nasal Screen MRSA (PCR) NEGATIVE (NEGATIVE) 02/26/22 09:50 Nasal B.pertussis DNA PCR NOT DETECTED 02/25/22 16:50 Nasal C.pneumoniae (PCR) NOT DETECTED 02/25/22 16:50 Calixto Human Metapneumo PCR NOT DETECTED 02/25/22 16:50 Nasal M.pneumoniae (PCR) NOT DETECTED 02/25/22 16:50 Nasal SARS-CoV-2 (PCR) NOT DETECTED 02/25/22 16:50 Vancomycin Trough 29.3 ug/mL (10.0-20.0) H* 02/26/22 16:00 Sepsis Event Note (H) - Evaluation Current Stage of Sepsis: Sepsis Possible source of Sepsis: positive: Skin/soft tissue - Sepsis Criteria Sepsis Criteria: Recorded Heart Rate greater than 90 bpm, Recorded Respiratory Rate greater than 20, WBC count greater than 12,000 or less than 4000
[2022-03-07] MEDS ORDERED: INSULIN ASPART 300 UNIT/3 ML PEN SUBQ ONE (18:10)
[2022-03-07] MEDS ORDERED: INSULIN ASPART 100 UNIT/1 ML 10 ML MDV SUBQ ONE (18:14)
[2022-03-07] MEDS: INSULIN LISPRO 300 UNIT/3 ML PEN SUBQ SCH ×2 (18:40→21:54)
[2022-03-07] MEDS: INSULIN GLARGINE 300 UNIT/3 ML PEN SUBQ SCH (21:51)
[2022-03-07] MEDS: OLANZapine ODT 5 MG TABLET TL SCH (21:55)
[2022-03-08] MEDS: PIPERACILLIN/TAZOBACTAM 3.375 GM in SODIUM CHLORIDE 0.9% MINIBAG 100 ML IV SCH ×3 (05:54→19:37)
[2022-03-08] MEDS: MULTIVITAMIN W/MINERALS TABLET PO SCH (08:00)
[2022-03-08] MEDS: INSULIN LISPRO 300 UNIT/3 ML PEN SUBQ SCH ×7 (08:02→20:53)
[2022-03-08] MEDS: IBUPROFEN 600 MG TABLET PO PRN (08:46)
[2022-03-08] MEDS: LACTOBACILLUS RHAMNOSUS GG CAPSULE PO SCH (08:47)
[2022-03-08] MEDS: ENOXAPARIN 40 MG/0.4 ML SYRINGE SUBQ SCH (08:47)
[2022-03-08] MEDS: SODIUM CHLORIDE FLUSH 0.9% 10 ML SYRINGE IVP SCH ×2 (08:47→17:00)
--- NOTE | 2022-03-08 14:06 | PROVIDER PROGRESS NOTE ---
Subjective - General Admit Date: 02/25/22 - Review of Systems Wound/Incisions: positive: No drainage General: positive: No symptoms, Fever, Weakness, Fatigue Skin: positive: Mottled. negative: Cyanosis, Pallor, Rash All Other Systems: positive: Reviewed and negative - Other Other Information/Narrative: Comfortable in bed, no complaints to the left foot Objective - Patient Data Intake & Output: Intake and Output Totals x24h 03/06/22 03/07/22 03/08/22 23:59 23:59 23:59 Intake Total 1450 1240 600 Balance 1450 1240 600 - Lab Results Lab Results: 03/07/22 06:25 03/07/22 06:25 Other Lab Results: Lab Results x24hrs 03/08/22 03/08/22 03/07/22 Range/Units 11:24 07:11 20:27 POC Whole Bld Glucose 168 H 104 H 179 H (70 - 100) mg/dL 03/07/22 Range/Units 16:49 POC Whole Bld Glucose 86 (70 - 100) mg/dL - Current Medications Current Medications: Current Medications Generic Name Dose Route Start Last Admin Trade Name Freq PRN Reason Stop Dose Admin Acetaminophen 650 mg 02/25/22 16:52 02/28/22 23:54 Acetaminophen 325 Mg Tablet PO 650 mg Q4HR PRN Administration Pain 1 to 4, or Fever Enoxaparin Sodium 40 mg 02/26/22 09:00 03/08/22 08:47 Enoxaparin 40 Mg/0.4 Ml Syringe SUBQ 40 mg DAILY LAUREN Administration Piperacillin Sod/Tazobactam 100 mls @ 200 mls/hr 03/04/22 12:00 03/08/22 11:49 Sod 3.375 gm/ Sodium Chloride IV 200 mls/hr Q6H LAUREN Administration Ibuprofen 600 mg 02/25/22 20:39 03/08/22 08:46 Ibuprofen 600 Mg Tablet PO 600 mg Q6HR PRN Administration PAIN 1-4 Insulin Glargine 28 unit 03/01/22 21:00 03/07/22 21:51 Insulin Glargine 300 Unit/3 Ml Pen SUBQ 28 unit QPM LAUREN Administration Insulin Human Lispro 8 unit 03/07/22 18:30 03/08/22 11:50 Insulin Lispro 300 Unit/3 Ml Pen SUBQ 8 unit TIDWM LAUREN Administration Protocol Insulin Human Lispro 1 - 9 unit 03/07/22 21:00 03/08/22 11:49 Insulin Lispro 300 Unit/3 Ml Pen SUBQ 1 unit 0800,1200,1700,2100 [facility] Administration Protocol Lactobacillus Rhamnosus 1 cap 02/27/22 09:00 03/08/22 08:47 Lactobacillus Rhamnosus Gg Capsule PO 1 cap DAILY LAUREN Administration Multivitamins/Minerals 1 tab 02/26/22 15:00 03/08/22 08:00 Multivitamin W/Minerals Tablet PO 1 tab DAILYWM LAUREN Administration Olanzapine 20 mg 02/25/22 21:00 03/07/22 21:55 Olanzapine Odt 5 Mg Tablet TL 20 mg QPM LAUREN Administration Sodium Chloride 10 ml 02/25/22 16:52 03/05/22 11:34 Sodium Chloride Flush 0.9% 10 Ml Syringe IVP 10 ml PRN PRN Administration NEEDED PER PROVIDER ORDERS Sodium Chloride 10 ml 02/25/22 17:00 03/08/22 08:47 Sodium Chloride Flush 0.9% 10 Ml Syringe IVP 10 ml 0100,0900,1700 LAUREN Administration - Physical Exam Wound/Incisions: positive: Healing well, No drainage General Appearance: positive: Lethargic (No fluid egress from the previous area of fluctuance on the dorsum of the left foot Ulceration and dry gangreen to the third toe remain clean and unchanged from yesterday) Skin: positive: Color nml, No rash Neurologic/Psychiatric: positive: Oriented x3, Mood/affect nml Comments/Other: Left third toe dry and gangrenous with eschar, unchanged from yesterday No fluid egress from prior area of fluctance on dorsum of left foot Impression/Plan - Problem List Problem List: Cellulitis has resolved to the dorsum of the left foot 3rd left toe is viable, there is ulceration and gangreene about the dorsum of the left toe distal aspect without infection Plan is to continue local wound care to 3rd toe and to assess further healing Possibility of a third toe amputation of soft tissue does not heal
--- NOTE | 2022-03-08 18:58 | PROVIDER PROGRESS NOTE ---
Assessment/Plan - Problem List (1) Diabetic foot ulcer Qualifiers: Diabetic foot ulcer location: midfoot Diabetes mellitus type: type 2 Laterality: left Non-pressure ulcer stage: unspecified non-pressure ulcer stage Qualified Code(s): E11.621 - Type 2 diabetes mellitus with foot ulcer; L97.429 - Non-pressure chronic ulcer of left heel and midfoot with unspecified severity Assessment/Plan: Appreciate Orthopedics following this patient. This is their assessment today: Cellulitis has resolved to the dorsum of the left foot 3rd left toe is viable, there is ulceration and gangreene about the dorsum of the left toe distal aspect without infection Plan is to continue local wound care to 3rd toe and to assess further healing Possibility of a third toe amputation if soft tissue does not heal (2) Osteomyelitis Impression: The foot MRI reported that she does have osteomyelitis, plus an abscess and persistent cellulitis/myositis. Dr. Lott of Ortho is following the patient daily now. He states that there is probably no osteomyelitis, despite the reading on MRI, because by MRI osteo is usually overread due to longstanding infections, and because she has no drainage from the wound opening on the plantar aspect of the foot. He advises continued IV antibiotics, and we broadened coverage (3) Bacteremia due to Streptococcus Impression: Initial blood cultures grew strep group B. She had no wound cultures ever sent. Repeat cultures have been negative to date. Because of her white blood cell count improving initially, she was de-escalated to Ceftriaxone IV daily. The WBC radha now, and with concern for osteomyelitis, we have broadened antibx to Zosyn for anaerobic coverage. The Echo did not suspect a valve vegetation. PICC line was placed She will need at least 2 weeks of IV antibiotics but possibly now 6 weeks, given the read-out of osteomyelitis on MRI. Plan that an ID specialist will be contacted to discuss her management (4) Acute kidney injury Impression: This is stable. Her baseline creat 0.6. This was felt to be secondary to the vancomycin given she had an elevated trough. Vancomycin was discontinued. We have held off on further IV hydration given her adequate oral intake but if her creatinine begins to rise we may need to consider IV fluids. (5) Hyperglycemia due to type 2 diabetes mellitus Impression: She reported poor glucose control at the time of admission. Her blood glucose has been well controlled here, after antibx were started and on Lantus 28 units in the evening and now 8 units of NovoLog with meals. architectural engineering teacher has seen her too Qualifiers: Diabetes mellitus terminal block assembler insulin use: without fdc use Qualified Code(s): E11.65 - Type 2 diabetes mellitus with hyperglycemia (6) Schizoaffective disorder Impression: The patient was so anxious about getting a PICC line that she refused it initially. We are continuing with her usual psych med, olanzapine. (7) Inguinal lymphadenopathy Impression: She had left inguinal lymphadenopathy which we suspected is likely reactive due to the diabetic foot ulcer and infection in the left foot. She will need repeat imaging to ensure this resolves after the L foot/toe infection improves. (8) Hyponatremia Impression: This has resolved after iv hydration. (9) Sepsis Impression: Sepsis is now resolved. - Current Meds Current Meds: Current Medications Generic Name Dose Route Start Last Admin Trade Name Freq PRN Reason Stop Dose Admin Acetaminophen 650 mg 02/25/22 16:52 02/28/22 23:54 Acetaminophen 325 Mg Tablet PO 650 mg Q4HR PRN Administration Pain 1 to 4, or Fever Enoxaparin Sodium 40 mg 02/26/22 09:00 03/08/22 08:47 Enoxaparin 40 Mg/0.4 Ml Syringe SUBQ 40 mg DAILY LAUREN Administration Piperacillin Sod/Tazobactam 100 mls @ 200 mls/hr 03/04/22 12:00 03/08/22 12:20 Sod 3.375 gm/ Sodium Chloride IV Infused Q6H LAUREN Infusion Ibuprofen 600 mg 02/25/22 20:39 03/08/22 08:46 Ibuprofen 600 Mg Tablet PO 600 mg Q6HR PRN Administration PAIN 1-4 Insulin Glargine 28 unit 03/01/22 21:00 03/07/22 21:51 Insulin Glargine 300 Unit/3 Ml Pen SUBQ 28 unit QPM LAUREN Administration Insulin Human Lispro 8 unit 03/07/22 18:30 03/08/22 17:00 Insulin Lispro 300 Unit/3 Ml Pen SUBQ 8 unit TIDWM LAUREN Administration Protocol Insulin Human Lispro 1 - 9 unit 03/07/22 21:00 03/08/22 17:01 Insulin Lispro 300 Unit/3 Ml Pen SUBQ 1 unit 0800,1200,1700,2100 LAUREN Administration Protocol Lactobacillus Rhamnosus 1 cap 02/27/22 09:00 03/08/22 08:47 Lactobacillus Rhamnosus Gg Capsule PO 1 cap DAILY LAUREN Administration Multivitamins/Minerals 1 tab 02/26/22 15:00 03/08/22 08:00 Multivitamin W/Minerals Tablet PO 1 tab DAILYWM LAUREN Administration Olanzapine 20 mg 02/25/22 21:00 03/07/22 21:55 Olanzapine Odt 5 Mg Tablet TL 20 mg QPM LAUREN Administration Sodium Chloride 10 ml 02/25/22 16:52 03/05/22 11:34 Sodium Chloride Flush 0.9% 10 Ml Syringe IVP 10 ml PRN PRN Administration NEEDED PER PROVIDER ORDERS Sodium Chloride 10 ml 02/25/22 17:00 03/08/22 17:00 Sodium Chloride Flush 0.9% 10 Ml Syringe IVP 10 ml 0100,0900,1700 LAUREN Administration - Lab Result Fish Bone Diagrams: 03/07/22 06:25 03/07/22 06:25 - Additional Planning My Orders: My Active Orders 03/07/22 18:30 Insulin Lispro [Humalog Kwikpen U-100] 8 unit SUBQ TIDWM 03/07/22 21:00 Insulin Lispro [Humalog Kwikpen U-100] 1 - 9 unit SUBQ 0800,1200,1700,2100 Subjective - Subjective Patient Reports: Feeling Better, Resting Comfortably, No Complaints (but has no sensation plantar surfaces of feet) Objective Vital Signs: Vital Signs - 24 hr 03/07/22 03/08/22 03/08/22 23:44 04:51 14:00 Temperature 36.5 C 36.3 C L Heart Rate [ 66 63 68 Brachial] Respiratory 16 18 16 Rate Blood Pressure 124/78 133/88 H [Left Brachial artery] Blood Pressure 147/78 H [Right Brachial artery] O2 Saturation 92 93 94 03/08/22 16:25 Temperature 36.3 C L Heart Rate [ 68 Brachial] Respiratory 20 Rate Blood Pressure [Left Brachial artery] Blood Pressure 129/69 [Right Brachial artery] O2 Saturation 92 Oxygen O2 Source Room air I&O (Last 24 Hrs): Intake and Output Totals x24h 03/06/22 03/07/22 03/08/22 23:59 23:59 23:59 Intake Total 1450 1240 1510 Balance 1450 1240 1510 General: Alert, Oriented x3 HEENT: EOMI, Mucous membr. moist/pink Neck: Supple, No JVD Neuro: Alert, Other (no sensation plantar surfaces of feet) Cardiovascular: Regular rate Respiratory: No respiratory distress Abdomen: Soft Extremities: Other (L foot and toes are bandaged) - Results Results: Laboratory Results WBC 11.7 x10^3/uL (4.8-10.8) H 03/07/22 06:25 RBC 3.61 10^6/uL (4.20-5.40) L 03/07/22 06:25 Hgb 10.1 g/dL (12.0-16.0) L 03/07/22 06:25 Hct 31.1 % (37.0-47.0) L 03/07/22 06:25 MCV 86.1 fL (81.0-99.0) 03/07/22 06:25 MCH 28.0 pg (27.0-31.0) 03/07/22 06:25 MCHC 32.5 g/dL (32.0-36.0) 03/07/22 06:25 RDW 12.6 % (12.0-15.0) 03/07/22 06:25 Plt Count 377 10^3/uL (130-450) 03/07/22 06:25 MPV 8.7 fL (7.9-10.8) 03/07/22 06:25 Neut # (Auto) 6.1 10^3/uL (1.5-6.6) 03/07/22 06:25 Lymph # (Auto) 3.5 10^3/uL (1.5-3.5) 03/07/22 06:25 Gregory # (Auto) 0.9 10^3/uL (0.0-1.0) 03/07/22 06:25 Eos # (Auto) 1.0 10^3/uL (0.0-0.7) H 03/07/22 06:25 Baso # (Auto) 0.1 10^3/uL (0.0-0.1) 03/07/22 06:25 Absolute Nucleated RBC 0.00 x10^3/uL 03/07/22 06:25 Total Counted 100 03/05/22 05:45 Band Neuts % (Manual) 0 % (0-10) 03/05/22 05:45 Abnorm Lymph % (Manual) 0 % 03/05/22 05:45 Nucleated RBC % 0.0 /100WBC 03/07/22 06:25 Neutrophils # (Manual) 9.5 10^3/uL (1.5-6.6) H 03/05/22 05:45 Lymphocytes # (Manual) 2.7 10^3/uL (1.5-3.5) 03/05/22 05:45 Monocytes # (Manual) 0.5 10^3/uL (0.0-1.0) 03/05/22 05:45 Eosinophils # (Manual) 0.8 10^3/uL (0-0.7) H 03/05/22 05:45 Basophils # (Manual) 0.0 10^3/uL (0-0.1) 03/05/22 05:45 Differential Comment MANUAL DIFFERENTIAL 03/05/22 05:45 WBC Morphology NORMAL APPEARANCE (NORMAL) 03/05/22 05:45 Platelet Estimate NORMAL (130-450,000) (NORMAL) 03/05/22 05:45 Platelet Morphology NORMAL APPEARANCE (NORMAL) 03/05/22 05:45 RBC Morph Micro Appear NORMAL APPEARANCE (NORMAL) 03/05/22 05:45 Sodium 142 mmol/L (135-145) 03/07/22 06:25 Potassium 4.0 mmol/L (3.5-5.0) 03/07/22 06:25 Chloride 102 mmol/L (101-111) 03/07/22 06:25 Carbon Dioxide 29 mmol/L (21-32) 03/07/22 06:25 Anion Gap 11.0 (6-13) 03/07/22 06:25 BUN 31 mg/dL (6-20) H 03/07/22 06:25 Creatinine 1.2 mg/dL (0.4-1.0) H 03/07/22 06:25 Estimated GFR (MDRD) 48 (>89) L 03/07/22 06:25 Glucose 115 mg/dL (70-100) H 03/07/22 06:25 POC Whole Bld Glucose 158 mg/dL (70 - 100) H 03/08/22 17:00 Estimat Average Glucose 332 mg/dL (70-100) H 02/25/22 15:56 Hemoglobin A1c % 13.2 % (4.27-6.07) H 02/25/22 15:56 Lactic Acid 1.3 mmol/L (0.5-2.2) 02/25/22 15:56 Calcium 9.0 mg/dL (8.5-10.3) 03/07/22 06:25 Iron 21 ug/dL (28-170) L 03/02/22 04:50 TIBC 251 ug/dL (250-450) 03/02/22 04:50 % Saturation 8 % (20-50) L 03/02/22 04:50 Transferrin 179 mg/dL (192-382) L 03/02/22 04:50 Ferritin 147.3 ng/mL (11.0-306.8) 03/02/22 04:50 Total Bilirubin 1.0 mg/dL (0.2-1.0) 02/25/22 15:56 AST 13 IU/L (10-42) 02/25/22 15:56 ALT 19 IU/L (10-60) 02/25/22 15:56 Alkaline Phosphatase 95 IU/L (42-121) 02/25/22 15:56 C-Reactive Protein 4.7 mg/dL (0-1.0) H 03/07/22 06:25 Total Protein 7.7 g/dL (6.7-8.2) 02/25/22 15:56 Albumin 3.1 g/dL (3.2-5.5) L 02/25/22 15:56 Globulin 4.6 g/dL (2.1-4.2) H 02/25/22 15:56 Albumin/Globulin Ratio 0.7 (1.0-2.2) L 02/25/22 15:56 Procalcitonin 1.67 ng/mL (<0.5) H 02/25/22 15:56 Urine Color YELLOW 02/25/22 19:17 Urine Clarity CLOUDY (CLEAR) 02/25/22 19:17 Urine pH 6.0 PH (5.0-7.5) 02/25/22 19:17 Ur Specific [place] 1.010 (1.002-1.030) 02/25/22 19:17 Urine Protein TRACE mg/dL (NEGATIVE) 02/25/22 19:17 Urine Glucose (UA) >=1000 mg/dL (NEGATIVE) H 02/25/22 19:17 Urine Ketones NEGATIVE mg/dL (NEGATIVE) 02/25/22 19:17 Urine Occult Blood TRACE-INTA (NEGATIVE) 02/25/22 19:17 Urine Nitrite NEGATIVE (NEGATIVE) 02/25/22 19:17 Urine Bilirubin NEGATIVE (NEGATIVE) 02/25/22 19:17 Urine Urobilinogen 0.2 (NORMAL) E.U./dL (NORMAL) 02/25/22 19:17 Ur Leukocyte Esterase SMALL (NEGATIVE) H 02/25/22 19:17 Urine RBC 0-5 /HPF (0-5) 02/25/22 19:17 Urine WBC 6-10 /HPF (0-5) H 02/25/22 19:17 Ur Squamous Epith Cells MANY Squamous (<= Few) H 02/25/22 19:17 Urine Bacteria Moderate /HPF (None Seen) H 02/25/22 19:17 Urine Culture Comments NOT INDICATED 02/25/22 19:17 Nasal Adenovirus (PCR) NOT DETECTED 02/25/22 16:50 Nasal B. parapertussis DNA (PCR) NOT DETECTED 02/25/22 16:50 Nasal Coronavir 229E PCR NOT DETECTED 02/25/22 16:50 Nasal Coronavir HKU1 PCR NOT DETECTED 02/25/22 16:50 Nasal Coronavir NL63 PCR NOT DETECTED 02/25/22 16:50 Nasal Coronavir OC43 PCR NOT DETECTED 02/25/22 16:50 Nasal Enterovir/Rhinovir PCR NOT DETECTED 02/25/22 16:50 Nasal Influenza B PCR NOT DETECTED 02/25/22 16:50 Nasal Influenza A PCR NOT DETECTED 02/25/22 16:50 Nasal Parainfluen 1 PCR NOT DETECTED 02/25/22 16:50 Nasal Parainfluen 2 PCR NOT DETECTED 02/25/22 16:50 Nasal Parainfluen 3 PCR NOT DETECTED 02/25/22 16:50 Nasal Parainfluen 4 PCR NOT DETECTED 02/25/22 16:50 Nasal RSV (PCR) NOT DETECTED 02/25/22 16:50 Nasal Screen MRSA (PCR) NEGATIVE (NEGATIVE) 02/26/22 09:50 Nasal B.pertussis DNA PCR NOT DETECTED 02/25/22 16:50 Nasal C.pneumoniae (PCR) NOT DETECTED 02/25/22 16:50 Calixto Human Metapneumo PCR NOT DETECTED 02/25/22 16:50 Nasal M.pneumoniae (PCR) NOT DETECTED 02/25/22 16:50 Nasal SARS-CoV-2 (PCR) NOT DETECTED 02/25/22 16:50 Vancomycin Trough 29.3 ug/mL (10.0-20.0) H* 02/26/22 16:00 Sepsis Event Note (H) - Evaluation Current Stage of Sepsis: Sepsis Possible source of Sepsis: positive: Skin/soft tissue - Sepsis Criteria Sepsis Criteria: Recorded Heart Rate greater than 90 bpm, Recorded Respiratory Rate greater than 20, WBC count greater than 12,000 or less than 4000
[2022-03-08] MEDS: INSULIN GLARGINE 300 UNIT/3 ML PEN SUBQ SCH (20:50)
[2022-03-08] MEDS: OLANZapine ODT 5 MG TABLET TL SCH (20:53)
[2022-03-09] MEDS: SODIUM CHLORIDE FLUSH 0.9% 10 ML SYRINGE IVP SCH ×3 (00:29→18:03)
[2022-03-09] MEDS: PIPERACILLIN/TAZOBACTAM 3.375 GM in SODIUM CHLORIDE 0.9% MINIBAG 100 ML IV SCH ×4 (00:29→18:04)
[2022-03-09] MEDS: INSULIN LISPRO 300 UNIT/3 ML PEN SUBQ SCH ×7 (08:01→21:13)
[2022-03-09] MEDS: LACTOBACILLUS RHAMNOSUS GG CAPSULE PO SCH (09:06)
[2022-03-09] MEDS: ENOXAPARIN 40 MG/0.4 ML SYRINGE SUBQ SCH (09:06)
[2022-03-09] MEDS: MULTIVITAMIN W/MINERALS TABLET PO SCH (09:06)
--- NOTE | 2022-03-09 15:15 | PROVIDER PROGRESS NOTE ---
Subjective - General Admit Date: 02/25/22 - Review of Systems All Other Systems: positive: Reviewed and negative - Other Other Information/Narrative: Sleeping in bed upon orthopedic team arrival No complaints or concerns Shs has been out of bed and walking today Objective - Patient Data Vital Signs: Vital Signs x48h Temp Pulse Resp BP Pulse Ox 03/09/22 07:50 37.2 C 63 17 119/71 95 Intake & Output: Intake and Output Totals x24h 03/07/22 03/08/22 03/09/22 23:59 23:59 23:59 Intake Total 1240 1610 920 Balance 1240 1610 920 - Lab Results Lab Results: 03/07/22 06:25 03/07/22 06:25 Other Lab Results: Lab Results x24hrs 03/09/22 03/09/22 03/08/22 Range/Units 11:25 07:26 20:46 POC Whole Bld Glucose 145 H 127 H 103 H (70 - 100) mg/dL 03/08/22 Range/Units 17:00 POC Whole Bld Glucose 158 H (70 - 100) mg/dL - Current Medications Current Medications: Current Medications Generic Name Dose Route Start Last Admin Trade Name Freq PRN Reason Stop Dose Admin Acetaminophen 650 mg 02/25/22 16:52 02/28/22 23:54 Acetaminophen 325 Mg Tablet PO 650 mg Q4HR PRN Administration Pain 1 to 4, or Fever Enoxaparin Sodium 40 mg 02/26/22 09:00 03/09/22 09:06 Enoxaparin 40 Mg/0.4 Ml Syringe SUBQ 40 mg DAILY LAUREN Administration Piperacillin Sod/Tazobactam 100 mls @ 200 mls/hr 03/04/22 12:00 03/09/22 13:11 Sod 3.375 gm/ Sodium Chloride IV Infused Q6H LAUREN Infusion Ibuprofen 600 mg 02/25/22 20:39 03/08/22 08:46 Ibuprofen 600 Mg Tablet PO 600 mg Q6HR PRN Administration PAIN 1-4 Insulin Glargine 28 unit 03/01/22 21:00 03/08/22 20:50 Insulin Glargine 300 Unit/3 Ml Pen SUBQ 28 unit QPM LAUREN Administration Insulin Human Lispro 8 unit 03/07/22 18:30 03/09/22 12:42 Insulin Lispro 300 Unit/3 Ml Pen SUBQ 4 unit TIDWM LAUREN Administration Protocol Insulin Human Lispro 1 - 9 unit 03/07/22 21:00 03/09/22 12:43 Insulin Lispro 300 Unit/3 Ml Pen SUBQ 1 unit 0800,1200,1700,2100 LAUREN Administration Protocol Lactobacillus Rhamnosus 1 cap 02/27/22 09:00 03/09/22 09:06 Lactobacillus Rhamnosus Gg Capsule PO 1 cap DAILY LAUREN Administration Multivitamins/Minerals 1 tab 02/26/22 15:00 03/09/22 09:06 Multivitamin W/Minerals Tablet PO 1 tab DAILYWM LAUREN Administration Olanzapine 20 mg 02/25/22 21:00 03/08/22 20:53 Olanzapine Odt 5 Mg Tablet TL 20 mg QPM LAUREN Administration Sodium Chloride 10 ml 02/25/22 16:52 03/05/22 11:34 Sodium Chloride Flush 0.9% 10 Ml Syringe IVP 10 ml PRN PRN Administration NEEDED PER PROVIDER ORDERS Sodium Chloride 10 ml 02/25/22 17:00 03/09/22 09:06 Sodium Chloride Flush 0.9% 10 Ml Syringe IVP 10 ml 0100,0900,1700 LAUREN Administration - Physical Exam Extremities: positive: No pedal edema Neurologic/Psychiatric: positive: Oriented x3 Comments/Other: Persistent granulation tissue about the third metatarsal left foot with some eschar No fluid egress from prior sites Dry necrosis is stable to the 3rd left toe Ulcer on 3rd left toe is dry without evidence of infection Impression/Plan - Problem List Problem List: 46 year old female with left 3rd toe ulcer and wound being followed by orthopedic team with daily dressing changes Plan: - Daily dressing changes with Xeroform and gauze to be continued after discharge from hospital at home or half-way facility - Follow up in orthopedic clinic after discharge
[2022-03-09] MEDS: SODIUM CHLORIDE FLUSH 0.9% 10 ML SYRINGE IVP PRN (18:04)
--- NOTE | 2022-03-09 18:44 | PROVIDER PROGRESS NOTE ---
Assessment/Plan - Problem List (1) Diabetic foot ulcer Qualifiers: Diabetic foot ulcer location: midfoot Diabetes mellitus type: type 2 Laterality: left Non-pressure ulcer stage: unspecified non-pressure ulcer stage Qualified Code(s): E11.621 - Type 2 diabetes mellitus with foot ulcer; L97.429 - Non-pressure chronic ulcer of left heel and midfoot with unspecified severity Assessment/Plan: She was admitted with a draining wound on the plantar surface of L foot, white blood count 17 and was started on empiric antibiotics. No wound culture was sent. Blood culture grew Group B strep, and the antibiotic was tailored to ceftriaxone based on sensitivities. WBC 17>> 17>> 13>> 13>> 15 and because of the worsening WBC, we broadened the antibx from ceftriaxone IV to iv Zosyn. Her WBC then started decreasing. Dr Lott started re-seeing the pt daily (when the WBC radha) and examining the area, does her daily dressing changes and thinks it is better and that now surg is NOT needed. Today I spoke with Infectious Disease at [facility] and went over the entire case. The recommendations were to give 14 days of IV antibiotics from the day that the blood culture was negative, which was 02/28/2020. Then to give 4 weeks of p.o. Augmentin 875 mg twice daily. ID recommended to stay on Zosyn because there was no wound culture done to know if any other bacteria would have grown. Since Zosy is given 3 times daily, and she needs 3 more days of that to complete a 14-day course of IV treatment, she will need administration of this IV antibx at a SNF, since she is medically stable now. She has a PICC line. SW and UM were gone when I got the plan from ID today, so tomorrow a.m. they will need to see if the pt should go to a SNF or stay here in our Swing bed status, to finish the iv antibx course, which would be Wed. Today I updated the patient, mother at bedside and another family member was at bedside, about all the above. (2) Osteomyelitis Impression: The foot MRI reported that she does have osteomyelitis, plus an abcsess and persistent cellulitis/myositis. Ever since that, Dr. Lott of Ortho is following the patient daily. He states that there is probably no osteomyelitis, despite the reading on MRI, because by MRI osteo is usually overread, since she has no had the wound for a year. I spoke to this with ID as well. The ID specialist advised that after 2 weeks of IV antibiotics, the patient continue and have 4 weeks of p.o. antibiotics and specifically advised Augmentin based on her blood culture results and no wound culture available. (3) Bacteremia due to Streptococcus Impression: Initial blood cultures grew strep group B. Repeat cultures done 02/27/22, are negative. Because of her white blood cell count improving initially, she was de-escalated to Ceftriaxone IV daily. The WBC radha, and we broadened antibx An Echo was done and did not suspect a valve vegetation. PICC line was placed She will need the 2 weeks of IV antibiotics (4) Acute kidney injury Impression: This is stable. Her baseline creat 0.6. This was felt to be secondary to the vancomycin given she had an elevated trough. Vancomycin was discontinued. We have held off on further IV hydration given her adequate oral intake but if her creatinine begins to rise we may need to consider IV fluids. (5) Hyperglycemia due to type 2 diabetes mellitus Impression: She reported poor glucose control at the time of admission. Her blood glucose taylor s been well controlled here, after antibx were started and she is on new Lantus and NovoLog Insulin and has had education and is administering to herself. At discharge, she will need new prescriptions for both types of insulin, plus syringes, needles, test strips, and a glucometer Qualifiers: Diabetes mellitus fdc insulin use: without fdc use Qualified Code(s): E11.65 - Type 2 diabetes mellitus with hyperglycemia (6) Schizoaffective disorder Impression: The patient was so anxious about getting a PICC line that she refused it initially. She is stable on her usual psych med, olanzapine. (7) Inguinal lymphadenopathy Impression: She had left inguinal lymphadenopathy which we suspected is likely reactive due to the diabetic foot ulcer and infection in the left foot. She will need repeat imaging to ensure this resolves after the L foot/toe i nfection improves. (8) Hyponatremia Impression: This has resolved after iv hydration. (9) Sepsis Impression: Sepsis is now resolved. - Current Meds Current Meds: Current Medications Generic Name Dose Route Start Last Admin Trade Name Freq PRN Reason Stop Dose Admin Acetaminophen 650 mg 02/25/22 16:52 02/28/22 23:54 Acetaminophen 325 Mg Tablet PO 650 mg Q4HR PRN Administration Pain 1 to 4, or Fever Enoxaparin Sodium 40 mg 02/26/22 09:00 03/09/22 09:06 Enoxaparin 40 Mg/0.4 Ml Syringe SUBQ 40 mg DAILY LAUREN Administration Piperacillin Sod/Tazobactam 100 mls @ 200 mls/hr 03/04/22 12:00 03/09/22 18:04 Sod 3.375 gm/ Sodium Chloride IV 200 mls/hr Q6H LAUREN Administration Ibuprofen 600 mg 02/25/22 20:39 03/08/22 08:46 Ibuprofen 600 Mg Tablet PO 600 mg Q6HR PRN Administration PAIN 1-4 Insulin Glargine 28 unit 03/01/22 21:00 03/08/22 20:50 Insulin Glargine 300 Unit/3 Ml Pen SUBQ 28 unit QPM LAUREN Administration Insulin Human Lispro 8 unit 03/07/22 18:30 03/09/22 18:00 Insulin Lispro 300 Unit/3 Ml Pen SUBQ 4 unit TIDWM [facility] Administration Protocol Insulin Human Lispro 1 - 9 unit 03/07/22 21:00 03/09/22 18:03 Insulin Lispro 300 Unit/3 Ml Pen SUBQ Not Given 0800,1200,1700,2100 [facility] Protocol Lactobacillus Rhamnosus 1 cap 02/27/22 09:00 03/09/22 09:06 Lactobacillus Rhamnosus Gg Capsule PO 1 cap DAILY LAUREN Administration Multivitamins/Minerals 1 tab 02/26/22 15:00 03/09/22 09:06 Multivitamin W/Minerals Tablet PO 1 tab DAILYWM LAUREN Administration Olanzapine 20 mg 02/25/22 21:00 03/08/22 20:53 Olanzapine Odt 5 Mg Tablet TL 20 mg QPM LAUREN Administration Sodium Chloride 10 ml 02/25/22 16:52 03/09/22 18:04 Sodium Chloride Flush 0.9% 10 Ml Syringe IVP 10 ml PRN PRN Administration NEEDED PER PROVIDER ORDERS Sodium Chloride 10 ml 02/25/22 17:00 03/09/22 18:03 Sodium Chloride Flush 0.9% 10 Ml Syringe IVP 10 ml 0100,0900,1700 [facility] Administration - Lab Result Fish Bone Diagrams: 03/07/22 06:25 03/07/22 06:25 - Additional Planning My Orders: My Active Orders 03/09/22 11:12 Miscellaenous Nursing Order [RC] QSHIFT Subjective - Subjective Patient Reports: Resting Comfortably, No Complaints Objective Vital Signs: Vital Signs - 24 hr 03/08/22 03/09/22 03/09/22 23:29 07:50 15:19 Temperature 36.5 C 37.2 C 36.8 C Heart Rate [ 67 63 66 Brachial] Respiratory 18 17 15 Rate Blood Pressure 149/73 H 119/71 104/69 [Left Brachial artery] O2 Saturation 94 95 93 Oxygen O2 Source Room air I&O (Last 24 Hrs): Intake and Output Totals x24h 03/07/22 03/08/22 03/09/22 23:59 23:59 23:59 Intake Total 1240 1610 1250 Output Total 150 Balance 1240 1610 1100 General: Alert, Oriented x3 HEENT: Atraumatic, Mucous membr. moist/pink Neck: Supple, No JVD Neuro: Alert, Other (No sensation plantar surfaces of feet.) Cardiovascular: Regular rate, No murmurs Respiratory: No respiratory distress, Breath sounds nml Abdomen: Normal bowel sounds, Soft Extremities: Other (L foot and toes bandaged.) - Results Results: Laboratory Results WBC 11.7 x10^3/uL (4.8-10.8) H 03/07/22 06:25 RBC 3.61 10^6/uL (4.20-5.40) L 03/07/22 06:25 Hgb 10.1 g/dL (12.0-16.0) L 03/07/22 06:25 Hct 31.1 % (37.0-47.0) L 03/07/22 06:25 MCV 86.1 fL (81.0-99.0) 03/07/22 06:25 MCH 28.0 pg (27.0-31.0) 03/07/22 06:25 MCHC 32.5 g/dL (32.0-36.0) 03/07/22 06:25 RDW 12.6 % (12.0-15.0) 03/07/22 06:25 Plt Count 377 10^3/uL (130-450) 03/07/22 06:25 MPV 8.7 fL (7.9-10.8) 03/07/22 06:25 Neut # (Auto) 6.1 10^3/uL (1.5-6.6) 03/07/22 06:25 Lymph # (Auto) 3.5 10^3/uL (1.5-3.5) 03/07/22 06:25 [place] # (Auto) 0.9 10^3/uL (0.0-1.0) 03/07/22 06:25 Eos # (Auto) 1.0 10^3/uL (0.0-0.7) H 03/07/22 06:25 Baso # (Auto) 0.1 10^3/uL (0.0-0.1) 03/07/22 06:25 Absolute Nucleated RBC 0.00 x10^3/uL 03/07/22 06:25 Total Counted 100 03/05/22 05:45 Band Neuts % (Manual) 0 % (0-10) 03/05/22 05:45 Abnorm Lymph % (Manual) 0 % 03/05/22 05:45 Nucleated RBC % 0.0 /100WBC 03/07/22 06:25 Neutrophils # (Manual) 9.5 10^3/uL (1.5-6.6) H 03/05/22 05:45 Lymphocytes # (Manual) 2.7 10^3/uL (1.5-3.5) 03/05/22 05:45 Monocytes # (Manual) 0.5 10^3/uL (0.0-1.0) 03/05/22 05:45 Eosinophils # (Manual) 0.8 10^3/uL (0-0.7) H 03/05/22 05:45 Basophils # (Manual) 0.0 10^3/uL (0-0.1) 03/05/22 05:45 Differential Comment MANUAL DIFFERENTIAL 03/05/22 05:45 WBC Morphology NORMAL APPEARANCE (NORMAL) 03/05/22 05:45 Platelet Estimate NORMAL (130-450,000) (NORMAL) 03/05/22 05:45 Platelet Morphology NORMAL APPEARANCE (NORMAL) 03/05/22 05:45 RBC Morph Micro Appear NORMAL APPEARANCE (NORMAL) 03/05/22 05:45 Sodium 142 mmol/L (135-145) 03/07/22 06:25 Potassium 4.0 mmol/L (3.5-5.0) 03/07/22 06:25 Chloride 102 mmol/L (101-111) 03/07/22 06:25 Carbon Dioxide 29 mmol/L (21-32) 03/07/22 06:25 Anion Gap 11.0 (6-13) 03/07/22 06:25 BUN 31 mg/dL (6-20) H 03/07/22 06:25 Creatinine 1.2 mg/dL (0.4-1.0) H 03/07/22 06:25 Estimated GFR (MDRD) 48 (>89) L 03/07/22 06:25 Glucose 115 mg/dL (70-100) H 03/07/22 06:25 POC Whole Bld Glucose 103 mg/dL (70 - 100) H 03/09/22 16:50 Estimat Average Glucose 332 mg/dL (70-100) H 02/25/22 15:56 Hemoglobin A1c % 13.2 % (4.27-6.07) H 02/25/22 15:56 Lactic Acid 1.3 mmol/L (0.5-2.2) 02/25/22 15:56 Calcium 9.0 mg/dL (8.5-10.3) 03/07/22 06:25 Iron 21 ug/dL (28-170) L 03/02/22 04:50 TIBC 251 ug/dL (250-450) 03/02/22 04:50 % Saturation 8 % (20-50) L 03/02/22 04:50 Transferrin 179 mg/dL (192-382) L 03/02/22 04:50 Ferritin 147.3 ng/mL (11.0-306.8) 03/02/22 04:50 Total Bilirubin 1.0 mg/dL (0.2-1.0) 02/25/22 15:56 AST 13 IU/L (10-42) 02/25/22 15:56 ALT 19 IU/L (10-60) 02/25/22 15:56 Alkaline Phosphatase 95 IU/L (42-121) 02/25/22 15:56 C-Reactive Protein 4.7 mg/dL (0-1.0) H 03/07/22 06:25 Total Protein 7.7 g/dL (6.7-8.2) 02/25/22 15:56 Albumin 3.1 g/dL (3.2-5.5) L 02/25/22 15:56 Globulin 4.6 g/dL (2.1-4.2) H 02/25/22 15:56 Albumin/Globulin Ratio 0.7 (1.0-2.2) L 02/25/22 15:56 Procalcitonin 1.67 ng/mL (<0.5) H 02/25/22 15:56 Urine Color YELLOW 02/25/22 19:17 Urine Clarity CLOUDY (CLEAR) 02/25/22 19:17 Urine pH 6.0 PH (5.0-7.5) 02/25/22 19:17 Ur Specific [place] 1.010 (1.002-1.030) 02/25/22 19:17 Urine Protein TRACE mg/dL (NEGATIVE) 02/25/22 19:17 Urine Glucose (UA) >=1000 mg/dL (NEGATIVE) H 02/25/22 19:17 Urine Ketones NEGATIVE mg/dL (NEGATIVE) 02/25/22 19:17 Urine Occult Blood TRACE-INTA (NEGATIVE) 02/25/22 19:17 Urine Nitrite NEGATIVE (NEGATIVE) 02/25/22 19:17 Urine Bilirubin NEGATIVE (NEGATIVE) 02/25/22 19:17 Urine Urobilinogen 0.2 (NORMAL) E.U./dL (NORMAL) 02/25/22 19:17 Ur Leukocyte Esterase SMALL (NEGATIVE) H 02/25/22 19:17 Urine RBC 0-5 /HPF (0-5) 02/25/22 19:17 Urine WBC 6-10 /HPF (0-5) H 02/25/22 19:17 Ur Squamous Epith Cells MANY Squamous (<= Few) H 02/25/22 19:17 Urine Bacteria Moderate /HPF (None Seen) H 02/25/22 19:17 Urine Culture Comments NOT INDICATED 02/25/22 19:17 Nasal Adenovirus (PCR) NOT DETECTED 02/25/22 16:50 Nasal B. parapertussis DNA (PCR) NOT DETECTED 02/25/22 16:50 Nasal Coronavir 229E PCR NOT DETECTED 02/25/22 16:50 Nasal Coronavir HKU1 PCR NOT DETECTED 02/25/22 16:50 Nasal Coronavir NL63 PCR NOT DETECTED 02/25/22 16:50 Nasal Coronavir OC43 PCR NOT DETECTED 02/25/22 16:50 Nasal Enterovir/Rhinovir PCR NOT DETECTED 02/25/22 16:50 Nasal Influenza B PCR NOT DETECTED 02/25/22 16:50 Nasal Influenza A PCR NOT DETECTED 02/25/22 16:50 Nasal Parainfluen 1 PCR NOT DETECTED 02/25/22 16:50 Nasal Parainfluen 2 PCR NOT DETECTED 02/25/22 16:50 Nasal Parainfluen 3 PCR NOT DETECTED 02/25/22 16:50 Nasal Parainfluen 4 PCR NOT DETECTED 02/25/22 16:50 Nasal RSV (PCR) NOT DETECTED 02/25/22 16:50 Nasal Screen MRSA (PCR) NEGATIVE (NEGATIVE) 02/26/22 09:50 Nasal B.pertussis DNA PCR NOT DETECTED 02/25/22 16:50 Nasal C.pneumoniae (PCR) NOT DETECTED 02/25/22 16:50 Calixto Human Metapneumo PCR NOT DETECTED 02/25/22 16:50 Nasal M.pneumoniae (PCR) NOT DETECTED 02/25/22 16:50 Nasal SARS-CoV-2 (PCR) NOT DETECTED 02/25/22 16:50 Vancomycin Trough 29.3 ug/mL (10.0-20.0) H* 02/26/22 16:00 Sepsis Event Note (H) - Evaluation Current Stage of Sepsis: Sepsis Possible source of Sepsis: positive: Skin/soft tissue - Sepsis Criteria Sepsis Criteria: Recorded Heart Rate greater than 90 bpm, Recorded Respiratory Rate greater than 20, WBC count greater than 12,000 or less than 4000
[2022-03-09] MEDS: INSULIN GLARGINE 300 UNIT/3 ML PEN SUBQ SCH (21:16)
[2022-03-09] MEDS: OLANZapine ODT 5 MG TABLET TL SCH (21:18)
[2022-03-10] MEDS: PIPERACILLIN/TAZOBACTAM 3.375 GM in SODIUM CHLORIDE 0.9% MINIBAG 100 ML IV SCH ×3 (00:30→12:22)
[2022-03-10] MEDS: SODIUM CHLORIDE FLUSH 0.9% 10 ML SYRINGE IVP SCH ×2 (00:31→05:58)
[2022-03-10] MEDS: SODIUM CHLORIDE FLUSH 0.9% 10 ML SYRINGE IVP PRN (00:31)
[2022-03-10] MEDS: IBUPROFEN 600 MG TABLET PO PRN (00:33)
[2022-03-10] MEDS: INSULIN LISPRO 300 UNIT/3 ML PEN SUBQ SCH ×4 (08:43→12:22)
[2022-03-10] MEDS: ENOXAPARIN 40 MG/0.4 ML SYRINGE SUBQ SCH (08:47)
[2022-03-10] MEDS: LACTOBACILLUS RHAMNOSUS GG CAPSULE PO SCH (08:49)
[2022-03-10] MEDS: MULTIVITAMIN W/MINERALS TABLET PO SCH (08:49)
[2022-03-10 11:50] VITALS: BP 119/62
--- NOTE | 2022-03-10 12:26 | Discharge Plan ---
Discharge Plan Problem Reviewed?: Yes Disposition: 61 Swing Bed DC/Xfer Condition: Fair Diet: Diabetic Activity Restrictions: Activity as Tolerated Shower Restrictions: No Driving Restrictions: No Assistance Devices: Walker Weight Bearing: Partial Weight Health Concerns: admitted for malodorous drainage from left foot for a year that worsened and now with fever and chills. Found to have diabetic foot infection with osteomyelitis. Plan of Treatment: complete 3 more days of intravenous antibiotics and then go onto 4 weeks of oral antibiotics. Care Goals: to complete treatment for bone infection. No Smoking: If you smoke, Please STOP! Call for help. Follow-up with: Gaby Walls PA-C [Primary Care Provider] -
--- NOTE | 2022-03-10 12:31 | DISCHARGE SUMMARY ---
Discharge Summary Admit Date: 02/25/22 Discharge Date: 03/10/22 Discharging Provider: Isabel Epstein MD Primary Care Provider: ISELA Moses Code Status: Attempt Resuscitation Condition at Discharge: Fair Discharge Disposition: 61 Swing Bed DC/Xfer - DIAGNOSES Discharge Diagnoses with Status of Each Condition: 1. Sepsis from Diabetic foot ulcer 2. Osteomyelitis possible 3. Bacteremia due to Streptococcus 4. Acute kidney injury 5. Hyperglycemia due to type 2 diabetes mellitus, with complications of neuropathy and nephropathy and foot infection 6. Schizoaffective disorder 7. Inguinal adenopathy 8. Hyponatremia - HPI History of Present Illness: This is a 46-year-old female of [place] origin with a history of diabetes type 2 on oral agent Glipizide only, has schizoaffective disorder with anxiety attacks and is on Zyprexa, has diabetic peripheral neuropathy, and diabetic foot ulcers on dorsum of both feet at metatarsals. The R ulcer has healed but the L foot ulcer has now lasted about 1 year and she has been to Wound clinic at [facility] since Sep of this year. She manages the left foot ulcer by just putting a dry bandage on it. She has noticed that it has been malodorous in the last several days. Also in the last few days she developed nausea, vomiting, fever and body aches and thought she had the flu. She was seen by her PCP today who evaluated the L foot wound and felt the wound was worse and that the pt needed to be seen in the ED. Work-up in the ED shows she has a very elevated white blood count of 28.2, CRP of 37 and procalcitonin level of 1.67. The Lactic Acid level is 1.3. She is tachycardic at 106, and has a "soft" BP of 95/59. A foot X-ray showed soft tissue edema but was inconclusive for osteomyelitis. Her glu is 330. The ED provider reached out to Orthopedics and also for admission to the Hospitalist team for antibiotics and diabetes manegement. Dr. Lott of Orthopedics will see her tomorrow and advised that she get antibiotics started, no wound culture is needed and no MRI is needed, he said. We discussed her CODE BLUE status and she wants to be a Full Code. - Past Medical History Cardiovascular: reports: None Respiratory: reports: None Neuro: reports: Peripheral neuropathy (Numbness of dorsum of feet, occasional shooting pain up her leg (pain is rare & she takes Tylenol or Motrin)) Endocrine/Autoimmune: reports: Type 2 diabetes (She does not do fingerstick checks because she "ran out of glucometer strips". She cannot remember what her old glucose levels were when she used to check fingerstick blood glu levels.) GI: reports: None ASSOCIATE PROFESSOR OF ENGLISH: reports: None : reports: None HEENT: reports: None Psych: reports: Depression, Anxiety, Other (schizoaffective disorder) Musculoskeletal: reports: None Derm: reports: None MRSA Hx?: No - CONSULTS | PROCEDURES Procedures: 1. Blood cultures from February 25 growing strep Accolate TI 2. Blood cultures without growth after 5 days 3. Echocardiogram with overall left ventricular systolic function normal at 65 to 70%. Small vegetations versus thickening of the aortic valve cusp cannot be excluded. Consider REJI. 4. Foot x-ray with soft tissue edema notable over the third of through the fifth digits. Decreased density within the soft tissues, small areas of low- attenuation. Early changes of osteomyelitis cannot be excluded. MRI recommended. 5. Duplex scan lower extremity with no significant stenosis from an arterial perspective 6. Venous duplex scan of lower extremity without evidence of DVT. She has enlarged left inguinal nodes preserved within the fatty bobo. Finding is nonspecific and probable reactive. 7. Chest x-ray with right arm PICC line, patchy opacities right lower lung field that appear to be atelectasis. 8. Foot MRI with ulceration plantar aspect forefoot level of second/third metatarsal heads with marked forefoot cellulitis over dorsal aspect of third and fourth metatarsal heads and MTP joints. 1.9 x 2.3 x 3.3 cm abscess within dorsal foot soft tissue. Suggestion of extensive osteomyelitis involving the third proximal, middle and distal phalanges. Myositis plantar foot muscles. No intramuscular abscess. 10. Repeat foot x-ray without evidence of osteomyelitis. 11. PICC line placed - HOSPITAL COURSE Hospital Course: The patient was placed on empiric broad-spectrum antibiotics for diabetic foot infection. Orthopedics was adamant that he felt that the plain films were over read and that this patient did not have osteomyelitis. The patient improved wi th symptoms on antibiotic therapy. White cell count became normal. Orthopedics did feel that there was a possibility of toe amputation in the future. He would reevaluate once antibiotics were instituted. As such she did not go to the operating room. In discussion of her case, she felt she would need long-term antibiotics followed by oral antibiotics. This was discussed with infectious disease at [facility] with the first hospitalist service. Recommendations were to give 14 days of IV antibiotics from the date of the blood cultures were negative which was February 27. Then to transition to 4 weeks of p.o. Augmentin 875 mg twice daily. The antibiotic to be used with Zosyn because there is no wound culture done. As such the patient was transitioned to swing bed status to receive the rest of her antibiotic therapy. From there she would receive the p.o. antibiotic therapy. Her other medical problems of diabetes were addressed with insulin to achieve adequate control. The inguinal adenopathy was felt to be reactive and we hope that it would resolve in the outpatient setting. Acute kidney injury resolved. Hyponatremia resolved. She was transitioned to swing bed status in stable condition. Temperature was 36.6. Heart rate 62. Blood pressure 119/62. Respirations 16. 94% on room air. 5 foot 3 inch [place] female at 71.5 kg with a flat withdrawn affect. Cl ear lungs. Regular rate and rhythm. Abdomen benign. Extremities remarkable for only the changes of the soft tissue wound infection on her foot. Greater than 30 minutes was spent coordinating dischargeThe patient was placed on empiric broad-spectrum antibiotics for diabetic foot infection. Orthopedics was adamant that he felt that the plain films were over read and that this patient did not have osteomyelitis. The patient improved with symptoms on antibiotic therapy. White cell count became normal. Orthopedics did feel that there was a possibility of toe amputation in the future. He would reevaluate once antibiotics were instituted. As such she did not go to the operating room. In discussion of her case, she felt she would need long-term antibiotics followed by oral antibiotics. This was discussed with infectious disease at [facility] with the first hospitalist service. Recommendations were to give 14 days of IV antibiotics from the date of the blood cultures were negative which was February 27. Then to transition to 4 weeks of p.o. Augmentin 875 mg twice daily. The antibiotic to be used with Zosyn because there is no wound culture done. As such the patient was transitioned to swing bed status to receive the rest of her antibiotic therapy. From there she would receive the p.o. antibiotic therapy. Her other medical problems of diabetes were addressed with insulin to achieve adequate control. The inguinal adenopathy was felt to be reactive and we hope that it would resolve in the outpatient setting. Acute kidney injury resolved. Hyponatremia resolved. She was transitioned to swing bed status in stable condition. Temperature was 36.6. Heart rate 62. Blood pressure 119/62. Respirations 16. 94% on room air. 5 foot 3 inch [place] female at 71.5 kg with a flat withdrawn affect. Clear lungs. Regular rate and rhythm. Abdomen benign. Extremities remarkable for only the changes of the soft tissue wound infection on her foot. Greater than 30 minutes was spent coordinating discharge - ALLERGIES Allergies/Adverse Reactions: Allergies Allergy/AdvReac Type Severity Reaction Status Date / Time No Known Drug Allergies Allergy Verified 02/25/22 15:47 - MEDICATIONS Home Medications: Ambulatory Orders Medication Instructions Recorded Confirmed glipiZIDE [Glipizide] 10 mg PO DAILY 10/20/19 02/25/22 OLANZapine [Olanzapine] 20 mg PO QPM 02/06/20 02/25/22 Amox/Clav 875/125 [Augmentin 1 tablet PO Q12H 10 Days #56 tablet 03/12/22 875/125 Tab] Ibuprofen [Motrin] 400 mg PO Q4HR PRN tablet 03/12/22 - LABS Result Diagrams: 03/07/22 06:25 03/07/22 06:25 - SEPSIS Current Stage of Sepsis: Sepsis Possible source of Sepsis: Skin/soft tissue Sepsis Criteria: Recorded Heart Rate greater than 90 bpm, Recorded Respiratory Rate greater than 20, WBC count greater than 12,000 or less than 4000
== END 2022-03-10 13:16 | disposition swing bed (61) | DRG 872 ==
LOC: ED 15:35 → MS2 16:52
PROVIDERS: ADMIT Internal Medicine; ATTEND Specialist
PROC: 02HV33Z Insertion of Infusion Device into Superior Vena Cava, Percutaneous Approach (ICD-10-PCS; principal; 2022-03-03)
DX: A41.9 Sepsis, unspecified organism (principal); A40.9 Streptococcal sepsis, unspecified; L97.529 Non-pressure chronic ulcer of other part of left foot with unspecified severity; N17.9 Acute kidney failure, unspecified; F17.210 Nicotine dependence, cigarettes, uncomplicated; Z20.822 Contact with and (suspected) exposure to COVID-19; E87.1 Hypo-osmolality and hyponatremia; L97.429 Non-pressure chronic ulcer of left heel and midfoot with unspecified severity; M86.9 Osteomyelitis, unspecified; L03.116 Cellulitis of left lower limb; E11.52 Type 2 diabetes mellitus with diabetic peripheral angiopathy with gangrene; I96 Gangrene, not elsewhere classified; E11.621 Type 2 diabetes mellitus with foot ulcer; L97.519 Non-pressure chronic ulcer of other part of right foot with unspecified severity; E11.65 Type 2 diabetes mellitus with hyperglycemia; E11.21 Type 2 diabetes mellitus with diabetic nephropathy; F25.9 Schizoaffective disorder, unspecified; R59.0 Localized enlarged lymph nodes; E11.42 Type 2 diabetes mellitus with diabetic polyneuropathy; E11.69 Type 2 diabetes mellitus with other specified complication; F17.200 Nicotine dependence, unspecified, uncomplicated; E11.628 Type 2 diabetes mellitus with other skin complications; L03.032 Cellulitis of left toe; Z79.84 Long term (current) use of oral hypoglycemic drugs; Z83.3 Family history of diabetes mellitus
CPT/HCPCS: 36415; 73620; 73630; 73720; 80048; 80053; 80202; 81001; 82728; 83036; 83540; 83605; 84145; 84466; 85025; 86140; 87040; 87150; 87181; 87633; 87640; 93306; 93926; 93971; 96374; 96375; 99285; A9270; A9585; J1650; J1815; J3370; J7120; 87086

== ENCOUNTER 2022-03-10 08:53 | Inpatient (IN) | payer MEDICARE, MEDICAID ==
[2022-03-10] MEDS ORDERED: oxyCODONE 5 MG TABLET PO PRN ×2 (13:04)
[2022-03-10] MEDS ORDERED: ACETAMINOPHEN 325 MG TABLET PO PRN (13:04)
[2022-03-10] MEDS ORDERED: IBUPROFEN 400 MG TABLET PO PRN (13:04)
[2022-03-10] MEDS ORDERED: PIPERACILLIN/TAZOBACTAM 3.375 GM in SODIUM CHLORIDE 0.9% MINIBAG 100 ML IV SCH (14:00)
[2022-03-10] MEDS: INSULIN LISPRO 300 UNIT/3 ML PEN SUBQ SCH ×2 (17:11→21:31)
[2022-03-10] MEDS: PIPERACILLIN/TAZOBACTAM 3.375 GM in SODIUM CHLORIDE 0.9% MINIBAG 100 ML IV SCH (17:11)
[2022-03-10] MEDS ORDERED: OLANZapine ODT 5 MG TABLET TL SCH (19:32)
[2022-03-10] MEDS ORDERED: OLANZAPINE 20 MG PO SCH (21:00)
[2022-03-10] MEDS: OLANZapine ODT 5 MG TABLET TL SCH (21:35)
[2022-03-11] MEDS: PIPERACILLIN/TAZOBACTAM 3.375 GM in SODIUM CHLORIDE 0.9% MINIBAG 100 ML IV SCH ×3 (01:09→16:44)
[2022-03-11] MEDS: INSULIN LISPRO 300 UNIT/3 ML PEN SUBQ SCH ×4 (07:55→21:24)
[2022-03-11] MEDS: ENOXAPARIN 40 MG/0.4 ML SYRINGE SUBQ SCH (08:04)
[2022-03-11] MEDS: glipiZIDE 5 MG TABLET PO SCH (08:04)
--- NOTE | 2022-03-11 19:19 | HISTORY & PHYSICAL EXAMINATION ---
History and Physical - History and Physical March 11, 2022 7:19 PM HPI: Patient is now in swing bed status. She was admitted February 25, 2022 and discharged yesterday March 10 from acute care status. She is now seen for admit H&P for swing bed admit. She is a 46-year-old [place]an with schizoaffective disorder, type 2 diabetes mellitus, and its complications of peripheral neuropathy and chronic kidney disease. She has chronic diabetic foot ulcers on the dorsum of both feet. The right ulcer is healed and the left foot ulcer has been present for about a year. Being followed by the wound clinic. In the last few days before admission it was malodorous, draining more. She was found to have osteomyelitis, cellulitis, bacteremia due to Streptococcus. Acute kidney injury was present on admission and resolved by the time of discharge. She was hyperglycemic and noncontrolled with her diabetes and that was brought under control with medications. She met sepsis criteria on admission and those were resolved within 24 hours. She is doing well, progressing. However she still needs 3 more days of IV antibiotic therapy to complete a 14-day course of IV treatment. From there she will be placed on p.o. antibiotic therapy for 4 weeks. These are per recommendations from [facility] Past medical history 1. Type 2 diabetes mellitus. Has poor insight. Not really good at checking her sugars or knowing what her A1c is. Complications include peripheral neuropathy and proteinuria. 2. Depression with anxiety as well as a schizoaffective disorder 3. G2, P2 No known drug allergies Medications at home usually are glipizide and olanzapine. Medications on transfer from acute care status to swing bed status are Tylenol, Lovenox, Motrin, lispro sliding scale, Zyprexa 20 mg at night, Roxicodone 5 mg every 4 hours as needed for moderate pain and 10 mg every 4 hours as needed for severe pain. Zosyn 3.375 g 3 times daily which will be needed until March 12. Social history. She lives with her mother. Disabled because of her mental illness. Her adult son lives with them as well. Daughter lives in [place]. She is . She smokes 1 pack a day since the age of 16. She rarely drinks alcohol and has no history of alcohol abuse or recreational substance abuse. She no longer drives a car. Family history. Mother is alive and well and has no major medical illnesses. Dad is alive and well and has no major medical illnesses. Siblings have diabetes 1 son and 1 daughter are healthy without diabetes, cancer, heart attack, stroke. ROS: No recent weight changes. Fevers with her foot infection with this last admission have gone away. ENT: Bad taste in her mouth but no complaints of thrush Pulmonary: Denies shortness of breath, cough, chest pain Cor: Denies shortness of breath, chest pain, edema is only in the infected foot, no orthopnea, denies palpitations Abdomen: No pain, mild anorexia with decreased appetite, loose stools but no diarrhea, no blood : Denies urgency, frequency, dysuria or flank pain Musculoskeletal: Foot pain, body aches no specific joint pain Skin: No rashes, no new lesions, macerated top of toe where it is infected Endocrine: No polyuria, polydipsia, polyphagia. Sleepy all the time Neuro: Gets easily confused, does not like to make decisions, denies suicidal homicidal ideation. Denies syncope, seizures. She relies a lot on her family to help her make decisions otherwise anxiety gets pretty severe. Temperature is 36.6. Respirations 15. Heart rate 68. 126/71. 95% on room air. 5 feet 3 inches tall, 68.5 kg Short statured, sleepy [place]an female, does wake up to my voice, answers questions, slow to respond but appropriate, speech lucid. Able to give me history. ENT: Normal facial symmetry. Pupils reactive. Oral mucosa is moist. [place]. Speech slow but normal Neck: Supple, no JVD no adenopathy Pulmonary: Clear to auscultation and percussion. No increased respiratory effort. Appears comfortable. Cor: Regular rate and rhythm. PMI normally placed. No murmurs. Abdomen: Soft, nontender, no organomegaly normal bowel sounds Extremities the only edema she has is in the infected foot. There is edema of the dorsum of the foot. Macerated left fourth toe. Loss of nail. Redness and heat are fading over this area. In looking at pictures from her acute care hospitalization redness and heat and drainage was significant on admission. Much improved when I look at those pictures and compared to today. Neurologically she is alert and oriented to person place and time. Follows two- step commands. Has no focal deficits with guards to strength or reflexes. She has quite a bit of loss of light touch when I check with continence tip over her feet and up to mid shins. She denies negative ideation at this time Assessment/plan 1. Diabetic foot ulcer. Plantar ulcer of left foot which included left fourth toe maceration. Group B strep. Because of diabetic foot and probable multi bacterial infection, she was broadened from ceftriaxone to Zosyn. Zosyn definitely caused a decrease in white cell count. Followed by orthopedics daily with dressing changes. Plan: Following recommendations from [facility]. Last negative blood culture was February 27. So she gets 2 weeks of IV antibiotic therapy from February 27 2 March 12. Then for weeks of p.o. Augmentin 875 twice daily. Her sepsis criteria that were present on her acute care admission February 25 have resolved. Her white cell count peaked at 15.1 on March 04. We will check white cell count tomorrow morning. 2. Possible osteomyelitis. MRI states osteomyelitis, orthopedics says it is an overread. She will be getting long-term antibiotics. 3. Streptococcus bacteremia. Repeat blood cultures - February 27. Echocardiogram negative without vegetation. To complete antibiotics as above. 4. Type 2 diabetes mellitus, uncontrolled, with complication of foot infection, peripheral neuropathy. Not on long-term insulin. She will continue with our regimen of insulin and Lantus. However I am strongly considering changing her over to her oral medications that she takes at home. Continue frequent glucose checks to make sure that she does not get out of control. 5. Schizoaffective disorder. We will continue her olanzapine. 6. Acute kidney injury. Baseline creatinine appears to be 0.6 and it worsened during her acute care stay. She has been hanging around a creatinine of 1.1- 1.2. Staying stable. We will check once during her stay in swing bed,
[2022-03-11] MEDS: OLANZapine ODT 5 MG TABLET TL SCH (21:21)
[2022-03-12] MEDS ORDERED: SODIUM CHLORIDE FLUSH 0.9% 10 ML SYRINGE IVP ONE ×2 (00:44→06:50)
[2022-03-12] MEDS: PIPERACILLIN/TAZOBACTAM 3.375 GM in SODIUM CHLORIDE 0.9% MINIBAG 100 ML IV SCH ×2 (00:46→08:09)
[2022-03-12] MEDS: glipiZIDE 5 MG TABLET PO SCH (06:50)
[2022-03-12 07:08] LABS: BASOPHILS # (AUTO) 0.1 10^3/uL (0.0-0.1); BASOPHILS % (AUTO) 1.5 %; EOSINOPHILS # (AUTO) 0.6 10^3/uL (0.0-0.7); EOSINOPHILS % (AUTO) 6.2 %; HCT - HEMATOCRIT 32.5 % (37.0-47.0); HGB - HEMOGLOBIN 10.6 g/dL (12.0-16.0); LYMPHOCYTES # (AUTO) 3.3 10^3/uL (1.5-3.5); LYMPHOCYTES % (AUTO) 34.1 %; MEAN CORPUSCULAR HEMOGLOBIN 27.6 pg (27.0-31.0); MEAN CORPUSCULAR HGB CONC 32.6 g/dL (32.0-36.0); MEAN CORPUSCULAR VOLUME 84.6 fL (81.0-99.0); MEAN PLATELET VOLUME 8.7 fL (7.9-10.8); MONOCYTES # (AUTO) 0.8 10^3/uL (0.0-1.0); NEUTROPHILS # (AUTO) 4.8 10^3/uL (1.5-6.6); PLT - PLATELET COUNT 432 10^3/uL (130-450); RED BLOOD COUNT 3.84 10^6/uL (4.20-5.40); RED CELL DISTRIBUTION WIDTH 12.6 % (12.0-15.0); WHITE BLOOD COUNT 9.6 x10^3/uL (4.8-10.8)
[2022-03-12 07:18] LABS: CALCIUM 9.1 mg/dL (8.5-10.3); CREATININE 1.3 mg/dL (0.4-1.0); POTASSIUM 3.7 mmol/L (3.5-5.0)
[2022-03-12] MEDS: INSULIN LISPRO 300 UNIT/3 ML PEN SUBQ SCH ×2 (08:08→11:17)
[2022-03-12] MEDS: ENOXAPARIN 40 MG/0.4 ML SYRINGE SUBQ SCH (08:10)
[2022-03-12 08:38] VITALS: BP 143/76
--- NOTE | 2022-03-12 11:10 | Discharge Plan ---
Discharge Plan Problem Reviewed?: Yes Disposition: Home, Self Care Prescriptions: Amox/Clav 875/125 [Augmentin 875/125 Tab] 1 tablet PO Q12H 10 Days #56 tablet Diet: Diabetic Activity Restrictions: Activity as Tolerated Shower Restrictions: Yes (keep foot clean and dry. wash daily. ) Driving Restrictions: No Health Concerns: You were admitted to the hospital on February 25 because your left foot had gotten very infected with a diabetic foot infection. We looked at you to make sure you did not have bone infection and the orthopedic surgeon says that he feels that it was just simple soft tissue infection of the skin and some of the muscle. He debrided it. The culture has grown out a bacteria that you need IV antibiotics for 2 weeks. Once she completed IV antibiotics you cannot go on antibiotics by pill for the next 4 weeks. It is not time for you to be discharged and complete your antibiotics by mouth for the next 4 weeks. Side effects of these antibioti cs can be diarrhea. Please take an [id number]-bpefszg probiotic on a daily basis. 1 pill a day. Plan of Treatment: 1. Complete treatment with Augmentin twice a day for the next 28 days. 2. Take an iamq-crw-eswawul probiotic once a day for the next 28 days. 3. Please keep your foot clean and dry. If your foot gets dirty, please make sure you wash it with soap and water and dry it. Always wear clean socks and shoes. Do not soak it in water. Do not soak it in the ocean or soak it in a river. 3. Please see your primary care provider, Vikki Walls, in the next few days for follow-up. She needs to examine your foot and see you on a regular basis to make sure your foot stays clean and that the infection eventually goes away. Care Goals: To have complete resolution of the foot infection. Assessment: Patient makes her own decisions and states that she will follow through with instructions No Smoking: If you smoke, Please STOP! Call for help.
--- NOTE | 2022-03-12 19:29 | DISCHARGE SUMMARY ---
Discharge Summary Admit Date: 03/10/22 Discharge Date: 03/12/22 Discharging Provider: Isabel Epstein MD Primary Care Provider: Gaby Walls MD Code Status: Attempt Resuscitation Condition at Discharge: Fair Discharge Disposition: 01 Home, Self Care - DIAGNOSES Discharge Diagnoses with Status of Each Condition: 1. Diabetic foot ulcer of left foot 2. Possible osteomyelitis 3. Streptococcus bacteremia 4. Type 2 diabetes mellitus, uncontrolled, with complication of foot infection, peripheral neuropathy, not on long-term insulin. 5. Schizoaffective disorder 6. Acute kidney injury not resolved with creatinine 1.1-1.2 as a new baseline - HPI History of Present Illness: Patient is now in swing bed status. She was admitted February 25, 2022 and discharged yesterday March 10 from acute care status. She is now seen for admit H&P for swing bed admit. She is a 46-year-old French with schizoaffective disorder, type 2 diabetes mellitus, and its complications of peripheral neuropathy and chronic kidney disease. She has chronic diabetic foot ulcers on the dorsum of both feet. The right ulcer is healed and the left foot ulcer has been present for about a year. Being followed by the wound clinic. In the last few days before admission it was malodorous, draining more. She was found to have osteomyelitis, cellulitis, bacteremia due to Streptococcus. Acute kidney injury was present on admission and resolved by the time of discharge. She was hyperglycemic and noncontrolled with her diabetes and that was brought under control with medications. She met sepsis criteria on admission and those were resolved within 24 hours. She is doing well, progressing. However she still needs 3 more days of IV a ntibiotic therapy to complete a 14-day course of IV treatment. From there she will be placed on p.o. antibiotic therapy for 4 weeks. These are per recommendations from [facility] Past medical history 1. Type 2 diabetes mellitus. Has poor insight. Not really good at checking her sugars or knowing what her A1c is. Complications include peripheral neuropathy and proteinuria. 2. Depression with anxiety as well as a schizoaffective disorder 3. G2, P2 - HOSPITAL COURSE Hospital Course: IV antibiotics. Had no new events. Remained afebrile. Ambulating in the room. When she completed her antibiotic therapy that was intravenous, she was ready for discharge. At discharge exam was 36.6. Pulse 75. Blood pressure 143/76. Respirations 16. 94% on room air. She is 5 feet 3 inches tall, 68.5 kg. Alert, oriented, flat affect. Withdrawn. But cooperative. 800% of her meals. Last bowel movement March 11. Neck was supple. Lungs were clear. Regular rate and rhythm. Abdomen benign. Ambulating in the room without any assist. - ALLERGIES Allergies/Adverse Reactions: Allergies Allergy/AdvReac Type Severity Reaction Status Date / Time No Known Drug Allergies Allergy Verified 02/25/22 15:47 - MEDICATIONS Home Medications: Ambulatory Orders Medication Instructions Recorded Confirmed glipiZIDE [Glipizide] 10 mg PO DAILY 10/20/19 02/25/22 OLANZapine [Olanzapine] 20 mg PO QPM 02/06/20 02/25/22 Amox/Clav 875/125 [Augmentin 1 tablet PO Q12H 10 Days #56 tablet 03/12/22 875/125 Tab] Ibuprofen [Motrin] 400 mg PO Q4HR PRN tablet 03/12/22 - LABS Result Diagrams: 03/12/22 06:45 03/12/22 06:45
== END 2022-03-12 13:50 | disposition home or self-care (01) | DRG 638 ==
LOC: MS2 13:27
PROVIDERS: ADMIT Specialist; ATTEND Specialist
DX: E11.621 Type 2 diabetes mellitus with foot ulcer (principal); L97.429 Non-pressure chronic ulcer of left heel and midfoot with unspecified severity; L03.116 Cellulitis of left lower limb; B95.5 Unspecified streptococcus as the cause of diseases classified elsewhere; F25.9 Schizoaffective disorder, unspecified; F41.8 Other specified anxiety disorders; F17.210 Nicotine dependence, cigarettes, uncomplicated; E11.42 Type 2 diabetes mellitus with diabetic polyneuropathy; N17.9 Acute kidney failure, unspecified; E11.22 Type 2 diabetes mellitus with diabetic chronic kidney disease; N18.9 Chronic kidney disease, unspecified; L97.529 Non-pressure chronic ulcer of other part of left foot with unspecified severity; Z79.84 Long term (current) use of oral hypoglycemic drugs
CPT/HCPCS: 36415; 80048; 85025

== ENCOUNTER 2022-03-17 08:00 | Outpatient (CLI) | payer MEDICARE, MEDICAID | END 2022-03-17 23:59 | disposition home or self-care (01) | LOC: LAB.R 08:00 | PROVIDERS: ATTEND Physician Assistant Medical | DX: M86.179 Other acute osteomyelitis, unspecified ankle and foot (principal) | CPT/HCPCS: 87070; 87205 ==

== ENCOUNTER 2022-11-20 10:31 | Outpatient (CLI) | payer MEDICARE, MEDICAID ==
[2022-11-20 14:22] LABS: ESTIMATED AVERAGE GLUCOSE 140 mg/dL (70-100); HEMOGLOBIN A1c% 6.5 % (4.27-6.07)
[2022-11-20 18:36] LABS: ALBUMIN 3.5 g/dL (3.2-5.5); ALBUMIN/GLOBULIN RATIO 0.8 (1.0-2.2); ALKALINE PHOSPHATASE 102 IU/L (42-121); ALT ALANINE AMINOTRANSFERASE 18 IU/L (10-60); AST ASPARTATE AMINOTRANSFERASE 23 IU/L (10-42); BILIRUBIN,TOTAL 0.4 mg/dL (0.2-1.0); BUN - BLOOD UREA NITROGEN 23 mg/dL (6-20); CALCIUM 9.4 mg/dL (8.5-10.3); CARBON DIOXIDE - CO2 28 mmol/L (21-32); CHLORIDE 104 mmol/L (101-111); CHOL/HDL RATIO 7.6 (<4.4); CHOLESTEROL 287 mg/dL; CREATININE 0.8 mg/dL (0.4-1.0); GFR - MDRD 77 (>89); GLUCOSE 100 mg/dL (70-100); HDL CHOLESTEROL 38 mg/dL; POTASSIUM 4.4 mmol/L (3.5-5.0); SODIUM 141 mmol/L (135-145); TOTAL PROTEIN 7.8 g/dL (6.7-8.2); TRIGLYCERIDES 482 mg/dL
[2022-11-20 19:08] LABS: LDL CHOLESTEROL,DIRECT 132 mg/dL; LDLD/HDL RATIO 3.5 (<4.4)
== END 2022-11-20 10:32 | disposition home or self-care (01) ==
LOC: LAB.N 10:31
PROVIDERS: ATTEND Physician Assistant Medical
DX: E11.9 Type 2 diabetes mellitus without complications (principal)
CPT/HCPCS: 36415; 80053; 80061; 83036; 83721

== ENCOUNTER 2022-12-21 13:45 | Outpatient (CLI) | payer MEDICARE, MEDICAID ==
--- NOTE | 2022-12-22 10:23 | Mammography Report ---
BILATERAL DIGITAL SCREENING MAMMOGRAM 3D/2D: 12/21/2022 CLINICAL: Baseline exam. Routine screening. No prior exams were available for comparison. Both breasts are heterogeneously dense, which may obscure small masses (category c / 51-75% glandular tissue). No significant masses, calcifications, or other findings are seen in either breast. IMPRESSION: NEGATIVE There is no mammographic evidence of malignancy. A 1 year screening mammogram is recommended. Based on the Tyrer Cuzick model (a risk assessment model) the patients lifetime risk is 7.3% and her 10 year risk is 1.5%. According to the ACR, ACS, and NCCN guidelines, an annual breast MRI exam tal g with mammogram is recommended if the patients lifetime risk is 20% or greater. This exam was interpreted at Station ID: [id number]. NOTE: For mammograms, a report in lay terms will be sent to the patient. Approximately 15% of breast malignancies will not be visualized mammographically. In the management of a palpable breast mass, a negative mammogram must not discourage biopsy of a clinically suspicious lesion. Electronically Signed By: Danny schaeffer/sierra:12/21/2022 15:53:43 letter sent: No_Letter ACR BI-RADS Category 1: Negative 3341F PARENCHYMAL PATTERN: (D) - The breast(s) demonstrate(s) heterogeneously dense fibroglandular emerita cano. BI-RADS CATEGORY: (1) - 1 Mammogram 20231222 1 year screening LATERALITY: (B)
== END 2022-12-21 13:46 | disposition home or self-care (01) ==
LOC: DI.N 13:45
DX: Z12.31 Encounter for screening mammogram for malignant neoplasm of breast (principal)

== ENCOUNTER 2023-02-16 11:29 | Outpatient (CLI) | payer MEDICARE, MEDICAID ==
[2023-02-16 18:24] LABS: ALBUMIN 3.4 g/dL (3.2-5.5); ALBUMIN/GLOBULIN RATIO 0.8 (1.0-2.2); ALKALINE PHOSPHATASE 100 IU/L (42-121); ALT ALANINE AMINOTRANSFERASE 20 IU/L (10-60); AST ASPARTATE AMINOTRANSFERASE 21 IU/L (10-42); BILIRUBIN,TOTAL 0.5 mg/dL (0.2-1.0); BUN - BLOOD UREA NITROGEN 23 mg/dL (6-20); CARBON DIOXIDE - CO2 28 mmol/L (21-32); CHLORIDE 108 mmol/L (101-111); CHOL/HDL RATIO 4.6 (<4.4); CHOLESTEROL 182 mg/dL; CREATININE 0.9 mg/dL (0.4-1.0); GFR - MDRD 67 (>89); GLUCOSE 99 mg/dL (70-100); HDL CHOLESTEROL 40 mg/dL; LDL CHOLESTEROL,CALCULATED 70 mg/dL; LDL/HDL RATIO 1.8 (<4.4); POTASSIUM 4.2 mmol/L (3.5-5.0); SODIUM 141 mmol/L (135-145); TOTAL PROTEIN 7.6 g/dL (6.7-8.2); TRIGLYCERIDES 361 mg/dL; VLDL CHOLESTEROL 72 mg/dL
[2023-02-16 20:41] LABS: ESTIMATED AVERAGE GLUCOSE 163 mg/dL (70-100); HEMOGLOBIN A1c% 7.3 % (4.27-6.07)
== END 2023-02-16 11:30 | disposition home or self-care (01) ==
LOC: LAB.N 11:29
PROVIDERS: ATTEND Family Medicine
DX: E11.9 Type 2 diabetes mellitus without complications (principal)
CPT/HCPCS: 36415; 80053; 80061; 83036; 83721

== ENCOUNTER 2023-08-30 10:40 | Outpatient (CLI) | payer MEDICARE, MEDICAID ==
[2023-08-30 18:11] LABS: CALCIUM 9.2 mg/dL (8.5-10.3); CREATININE 1.1 mg/dL (0.6-1.3); POTASSIUM 4.5 mmol/L (3.5-4.5)
[2023-08-30 21:54] LABS: ESTIMATED AVERAGE GLUCOSE 298 mg/dL (70-100)
== END 2023-08-30 10:41 | disposition home or self-care (01) ==
LOC: LAB.N 10:40
PROVIDERS: ATTEND Physician Assistant Medical
DX: E11.9 Type 2 diabetes mellitus without complications (principal)
CPT/HCPCS: 36415; 80048; 83036

== ENCOUNTER 2023-10-24 17:30 | Emergency (ER) | payer OTHER, MEDICARE, MEDICAID ==
[2023-10-24 17:45] VITALS: O2SAT 96
[2023-10-24 18:13] LABS: BASOPHILS # (AUTO) 0.1 10^3/uL (0.0-0.1); BASOPHILS % (AUTO) 0.7 %; EOSINOPHILS # (AUTO) 0.4 10^3/uL (0.0-0.7); EOSINOPHILS % (AUTO) 2.7 %; HCT - HEMATOCRIT 32.1 % (37.0-47.0); HGB - HEMOGLOBIN 10.2 g/dL (12.0-16.0); LYMPHOCYTES # (AUTO) 1.5 10^3/uL (1.5-3.5); LYMPHOCYTES % (AUTO) 9.8 %; MEAN CORPUSCULAR HEMOGLOBIN 27.3 pg (27.0-31.0); MEAN CORPUSCULAR HGB CONC 31.8 g/dL (32.0-36.0); MEAN CORPUSCULAR VOLUME 86.1 fL (81.0-99.0); MEAN PLATELET VOLUME 9.2 fL (7.9-10.8); MONOCYTES % (AUTO) 6.5 %; NEUTROPHILS # (AUTO) 11.9 10^3/uL (1.5-6.6); PLT - PLATELET COUNT 335 10^3/uL (130-450); RED BLOOD COUNT 3.73 10^6/uL (4.20-5.40); RED CELL DISTRIBUTION WIDTH 12.5 % (12.0-15.0); WHITE BLOOD COUNT 14.9 x10^3/uL (4.8-10.8)
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
[2023-10-24 18:29] LABS: ACETAMINOPHEN 0.2 ug/mL; ALBUMIN 3.6 g/dL (3.2-5.5); ALKALINE PHOSPHATASE 112 IU/L (42-121); ALT ALANINE AMINOTRANSFERASE 23 IU/L (10-60); AST ASPARTATE AMINOTRANSFERASE 32 IU/L (10-42); BILIRUBIN,TOTAL 0.7 mg/dL (0.2-1.0); BUN - BLOOD UREA NITROGEN 30 mg/dL (6-20); CALCIUM 9.3 mg/dL (8.5-10.3); CARBON DIOXIDE - CO2 27 mmol/L (21-32); CHLORIDE 104 mmol/L (101-111); ETOH - ETHANOL < 10.0 mg/dL; GFR - MDRD 59 (>89); GLUCOSE 230 mg/dL (74-104); LIPASE 28 U/L (11-82); MAGNESIUM 1.7 mg/dL (1.7-2.3); POTASSIUM 4.2 mmol/L (3.5-4.5); SODIUM 138 mmol/L (135-145); TOTAL PROTEIN 7.3 g/dL (6.4-8.9)
[2023-10-24 18:34] LABS: SALICYLATE < 1.5 mg/dL
[2023-10-24 18:35] LABS: CK- CREATINE KINASE 1159 IU/L (30-223)
[2023-10-24 18:43] LABS: THYROID STIMULATING HORMONE 2.05 uIU/mL (0.34-5.60)
[2023-10-24 18:47] LABS: BILIRUBIN,URINE NEGATIVE (NEGATIVE); GLUCOSE, URINE (UA) 100 mg/dL (NEGATIVE); KETONES,URINE (UA) TRACE mg/dL (NEGATIVE); LEUKOCYTE ESTERASE, URINE NEGATIVE (NEGATIVE); NITRITE,URINE NEGATIVE (NEGATIVE); OCCULT BLOOD,URINE LARGE (NEGATIVE); PH,URINE 5.5 PH (5.0-7.5); PROTEIN,URINE >=300 mg/dL (NEGATIVE); UROBILINOGEN,URINE 0.2 (NORMAL) E.U./dL (NORMAL)
[2023-10-24 18:50] LABS: CLARITY,URINE SL. CLOUDY (CLEAR)
[2023-10-24 18:51] LABS: HCG UR QUAL NEGATIVE
[2023-10-24 19:06] LABS: RBC,URINE 0-5 /HPF (0-5)
[2023-10-24 19:07] LABS: AMORPHOUS SEDIMENT,UR Few /LPF; BACTERIA,URINE Few /HPF (None Seen); MUCUS,URINE Moderate Strands; SQUAMOUS EPITHELIAL CELL,UR MANY Squamous (<= Few)
[2023-10-24 19:09] LABS: AMPHETAMINE SCREEN,URINE NEGATIVE (NEGATIVE); BARBITURATE SCREEN,UR NEGATIVE (NEGATIVE); BENZODIAZEPINES SCREEN, URINE NEGATIVE (NEGATIVE); BUPRENORPHINE SCREEN, URINE NEGATIVE (NEGATIVE); COCAINE SCREEN URINE NEGATIVE (NEGATIVE); METHADONE SCREEN, URINE NEGATIVE (NEGATIVE); METHAMPHETAMINES SCREEN, URINE NEGATIVE (NEGATIVE); OPIATE SCREEN, URINE NEGATIVE (NEGATIVE); OXYCODONE SCREEN, URINE NEGATIVE (NEGATIVE); THC CANNABINOID SCREEN, URINE NEGATIVE (NEGATIVE); TRICYCLIC ANTIDEPRESSANT,URINE NEGATIVE (NEGATIVE)
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
[2023-10-24 20:15] VITALS: BP 134/80
== END 2023-10-24 20:10 | disposition home or self-care (01) ==
LOC: EDUNIT# → ED 17:30
DX: S00.83XA Contusion of other part of head, initial encounter (principal); Y29.XXXA Contact with blunt object, undetermined intent, initial encounter; E11.65 Type 2 diabetes mellitus with hyperglycemia; E11.42 Type 2 diabetes mellitus with diabetic polyneuropathy; F20.9 Schizophrenia, unspecified; R94.4 Abnormal results of kidney function studies; R00.0 Tachycardia, unspecified; F17.200 Nicotine dependence, unspecified, uncomplicated; Z79.84 Long term (current) use of oral hypoglycemic drugs; Z79.899 Other long term (current) drug therapy
CPT/HCPCS: 36415; 80053; 80143; 80179; 80306; 81001; 81003; 81025; 82077; 82550; 83690; 83735; 84443; 85025; 87086; 87635; 93005; 99284

== ENCOUNTER 2024-02-10 09:06 | Outpatient (CLI) | payer MEDICARE, MEDICAID ==
[2024-02-10 12:15] LABS: ESTIMATED AVERAGE GLUCOSE 174 mg/dL (70-100); HEMOGLOBIN A1c% 7.7 % (4.27-6.07)
[2024-02-10 12:25] LABS: ALBUMIN 3.2 g/dL (3.2-5.5); ALBUMIN/GLOBULIN RATIO 0.8 (1.0-2.2); ALKALINE PHOSPHATASE 106 IU/L (42-121); ALT ALANINE AMINOTRANSFERASE 9 IU/L (10-60); AST ASPARTATE AMINOTRANSFERASE 11 IU/L (10-42); BILIRUBIN,TOTAL 0.3 mg/dL (0.2-1.0); BUN - BLOOD UREA NITROGEN 25 mg/dL (6-20); CALCIUM 9.4 mg/dL (8.5-10.3); CARBON DIOXIDE - CO2 33 mmol/L (21-32); CHLORIDE 101 mmol/L (101-111); CHOL/HDL RATIO 6.2 (<4.4); CHOLESTEROL 333 mg/dL; GFR - MDRD 59 (>89); GLUCOSE 228 mg/dL (74-104); HDL CHOLESTEROL 54 mg/dL; POTASSIUM 4.5 mmol/L (3.5-4.5); SODIUM 137 mmol/L (135-145); TRIGLYCERIDES 655 mg/dL (48-352)
[2024-02-10 12:41] LABS: LDL CHOLESTEROL,DIRECT 97 mg/dL (75-193); LDLD/HDL RATIO 1.8 (<4.4)
== END 2024-02-10 09:07 | disposition home or self-care (01) ==
LOC: LAB.N 09:06
PROVIDERS: ATTEND Physician Assistant Medical
DX: E11.9 Type 2 diabetes mellitus without complications (principal)
CPT/HCPCS: 36415; 80053; 80061; 83036; 83721

== ENCOUNTER 2024-02-27 08:03 | Outpatient (CLI) | payer MEDICARE, MEDICAID | END 2024-02-27 23:59 | disposition EMS.NT | LOC: EMS 08:03 | DX: Z03.89 Encounter for observation for other suspected diseases and conditions ruled out (principal) ==

== ENCOUNTER 2024-03-21 08:00 | Outpatient (CLI) | payer MEDICARE, MEDICAID | END 2024-03-21 23:59 | disposition home or self-care (01) | LOC: LAB.WCP 08:00 | PROVIDERS: ATTEND Physician Assistant Medical | DX: E11.621 Type 2 diabetes mellitus with foot ulcer (principal) | CPT/HCPCS: 87070; 87077; 87205 ==

== ENCOUNTER 2024-04-04 03:36 | Outpatient (CLI) | payer MEDICARE, MEDICAID | END 2024-04-04 03:37 | disposition critical access hospital (66) | LOC: EMS 03:36 | DX: M79.662 Pain in left lower leg (principal); R22.42 Localized swelling, mass and lump, left lower limb; Y93.01 Activity, walking, marching and hiking | CPT/HCPCS: A0425; A0429 ==

== ENCOUNTER 2024-04-04 03:55 | Emergency (ER) | payer MEDICARE, MEDICAID ==
[2024-04-04 04:10] VITALS: BP 138/74; O2SAT 97
== END 2024-04-04 05:46 | disposition left against medical advice (07) ==
LOC: EDUNIT# → ED 03:55
DX: Z53.21 Procedure and treatment not carried out due to patient leaving prior to being seen by health care provider (principal)